=== PATIENT | female | born 1935 | race African-American/Black ===

== ENCOUNTER 2019-01-01 12:44 | Inpatient (IN) | payer MEDICARE ==
[2019-01-01 13:10] VITALS: BMI 22.9
--- NOTE | 2019-01-01 14:16 | PDOC.FPRHP ---
- History of Present Illness History of Present Illness: Patient is an 83F with PMHx of HTN, metastatic colon cancer to the liver, and CHF admitted with a CHF exacerbation. Patient reports that she has had increased work of breathing and a cough for 1 year, though it has increased over the last week. She reports that she went to the hospital today because she started coughing and it was difficult for her to stop. The cough is productive of clear/yellow sputum which is blood tinged at time. She sleeps on 2-3 pillows at night. She reports that she has been to the ED 3-4 times throughout the past year for the same symptoms. She reports of SOB and cough at this time, denies cp. ED Course: 40mg IV lasix, albuterol, duonebs - Allergies/Adverse Reactions Allergies Allergy/AdvReac Type Severity Reaction Status Date / Time aspirin Allergy Verified 01/01/19 13:13 - Home Medications Medication Instructions Recorded Confirmed Type Albuterol Sulfate [Proair 90 mcg IH Q4HR PRN 01/01/19 01/01/19 History Respiclick] Budesonide-Formoterol [Symbicort 160 mcg PO BID PRN 01/01/19 01/01/19 History 160-4.5] Losartan/Hydrochlorothiazide 1 tab PO BID 01/01/19 01/01/19 History [Losartan-Hctz 50-12.5 mg Tab] Montelukast Sodium [Singulair] 10 mg PO DAILY 01/01/19 01/01/19 History - History PMHx: HTN, COPD, metastatic colon cancer to liver PSHx: L cataract, colon resection, liver lobectomy, nephrectomy, hysterectomy, appendectomy R knee sx FHx: sister- CHF, mom-required pacemaker Social: second-hand smoke >30 years, non-smoker, no etoh use, no drug use - Review of Systems General: denies: fever/chills, night sweats Eyes: denies: eye pain, vision changes ENT: denies: nasal congestion, rhinorrhea Respiratory: reports: cough (productive of clear sputum occasionally tinged with blood), shortness of breath Cardiovascular: denies: chest pain, palpitation Gastrointestinal: denies: nausea, vomiting, diarrhea Genitourinary: denies: incontinence, dysuria Skin: denies: rashes, lesions Musculoskeletal: denies: tenderness, stiffness Neurological: denies: syncope, seizure - Vital signs BP: [133/84] HR: [109] RR: [21] Tmax: [98.4] Pox: [95]% on [3L] Wt: [76.71] - Physical Exam Constitutional: NAD, awake, alert and oriented HEENT: grossly normal hearing, MMM Neck: supple, FROM Chest: no-tender to palpation, no lesions Heart: RRR, normal S1/S2 Lungs: other (wheezing throughout all lung noel, upper respiratory noise) Abdomen: soft, non-tender, bowel sounds present Musculoskeletal: normal structure, normal tone Neurological: CN II-XII intact, normal sensation Skin: no rash/lesions, good turgor Heme/Lymphatic: no unusual bruising or bleeding, no purpura Psychiatric: normal mood and affect, good judgment and insight FMR H&P: Results - Labs Result Diagrams: 01/02/19 04:24 01/02/19 04:24 - Radiology Interpretation Chest x-ray Status: report reviewed by me (fluid overload) FMR H&P: A/P - Problem List (1) New onset of congestive heart failure Current Visit: Yes Status: Acute Code(s): I50.9 - HEART FAILURE, UNSPECIFIED (2) HTN (hypertension) Current Visit: Yes Status: Chronic Code(s): I10 - ESSENTIAL (PRIMARY) HYPERTENSION (3) Hx of malignant neoplasm of colon Current Visit: Yes Status: Chronic Code(s): Z85.038 - PERSONAL HISTORY OF MALIGNANT NEOPLASM OF LARGE INTESTINE (4) Chronic bronchitis Current Visit: Yes Status: Chronic Code(s): J42 - UNSPECIFIED CHRONIC BRONCHITIS - Plan Patient is an 83F with PMHx of HTN, chronic bronchitis, metastatic colon cancer to the liver that is admitted for new-onset CHF #New-onset CHF -patient has chronic bronchitis, but her cough and sob have worsened -sleeps on 2-3 pillows at night -denies chest pain -per Dr. Elmore has no hx of CHF -trop neg, will trend -CXR suggests fluid overload -echo -cardiology consult -BNP 24.8 -daily weights -O2 with oxygen weaning as tolerated -will see how the lasix she received in the ED improves her symptoms, will consider adding more in the am #Chronic Bronchitis -saw Dr. Leija a few months ago, he added singulair at that time per patient -will continue patient's home meds -oxygen support with weaning as tolerated #HTN -continue home meds #Metastatic colon cancer to the liver -had liver lobectomy and colon resection -monitored by pcp Diet: HH Code: Full; patient has out of hospital DNR but would like to be full code while in the hospital Dispo: inpatient for new-onset CHF exacerbation FMR H&P: Upper Level - Plan Date/Time: 01/01/19 1413 I, Pavan Peñaloza DO, have evaluated this patient and agree with findings/plan as outlined by marketing operations intern resident. Pertinent changes/additions are listed here. This is a 83 yo female with a pmh of NTH, chronic bronchitis, history of metastatic cancer who presents from an outside ER. She reports SOB for the last year. Normal, these symptoms are controlled with her proair and symbicort. She reports, however, that this morning her cough was acutely worse. Her inhalers did not improve her symptoms. She reports creamy sputum and occasionally blood tinged. She denies chest pain at this time. Denies nausea, vomiting, headache, dizziness, or weakness. Objective General: NAD, AAOx3 Respiratory: Diffuse coarse lung sounds with crackles a the bases Cardiac: RRR, no murmur Abdomen: Soft, non-tender Please see marketing operations intern note for further information A/P New onset CHF -Normal BNP but xray consistent with fluid overload -Pending Echo in AM -s/p 40mg of lasix at outside ER, will wait and see hour she responds -Dr. Leija is her teacher citizenship -Trending troponin -Cardiology consulted, will appreciate their recommendations Chronic Bronchitis -Continue home proair and symbicort HTN -Continue home meds Hx of metastatic breast cancer Code: Full Prophylaxis: SCDs Family: Daughter at bedside Diet: HH Fluids: SL Disposition: DC in 2-3 days PCP: Dr. Elmore Addendum - Attending - Attending Attestation Date/Time: 01/02/191935 I personally evaluated the patient and discussed the management with Dr. Lin I agree with the History, Examination, Assessment and Plan documented above with any addition or exceptions noted below - 83 yo female with h/o COPD, HTN, and h/0 colon and renal cancer presented with cough productive of yellow sputum and SOB. Patient reports recurrent episodes of this over the last year. Today she had episodes of coughing and was unable to catch her breath. Denies any fever or chills. Has been taking her home meds as prescribed including her inhalers. Denies any tobacc use but has h/o second hand smoke exposure for many years. PMH/PSH/Meds/SH reviewed and agree with resident's documentation. Afebrile VSS> Exam repeated by me and agree with resident's findings. Labs: WBC =6.6, CMP-normal. CXR- interstitial opacification. A/P: 1) Dyspnea- most likely secondary to COPD exacerbatio- will start on scheduled duonebs and sterids. Wean O2 as tolerated. CHF less likely as EF is normal and BNP is normal. 2) HTN - continue home medications.
[2019-01-01 15:07] LABS: Troponin I Less than 0.010 ng/mL (< 0.028)
[2019-01-01 17:28] LABS: Troponin I Less than 0.010 ng/mL (< 0.028)
[2019-01-01] MEDS ORDERED: PROVENTIL INHALER 6.7 G (200 INHALATIONS) INH SCH (18:30)
[2019-01-01] MEDS: Mometasone/Formoterol 120 PUFF INHALER INH SCH (18:55)
[2019-01-01] MEDS ORDERED: predniSONE 50 MG TAB PO SCH (19:30)
[2019-01-01 20:56] LABS: Troponin I Less than 0.010 ng/mL (< 0.028)
--- NOTE | 2019-01-01 21:04 | CON ---
DATE OF CONSULTATION: 01/01/2019 INDICATION FOR CONSULTATION: An 83-year-old female with possible new onset congestive heart failure. HISTORY OF PRESENT ILLNESS: This is an 83-year-old female who has been having problems with coughing, wheezing, and respiratory problems for over a year. Has had exacerbations throughout this time. She has been seen by Dr. Leija. She has been having a chronic cough and finally came to the hospital. Due to the coughing, she had increasing shortness of breath. She has a history of secondhand smoke, but did not smoke herself. She denies any history of asthma in the past. She has not had any significant lower extremity edema, but she says that she stands all day or sits for long periods of time, she may get some edema, otherwise has no previous history of congestive heart failure. Her echocardiogram was performed today which shows ejection fraction of 60% to 65% with mild aortic valve sclerosis, mild mitral tricuspid valve regurgitation, trace aortic valve regurgitation, evidence of diastolic dysfunction with a dilated left atrium. She denied any chest pain. Has had no previous cardiac history of ischemia. PAST MEDICAL HISTORY: Significant for hypertension, colon cancer with colon resection, partial liver resection. She has had chemotherapy. She has a history of asthma, COPD. She has had a left nephrectomy. She has had a hysterectomy, cataract surgery. She has had left knee surgery. Her nephrectomy was in 2017. FAMILY HISTORY: Noncontributory except for the smoking abuse. MEDICATIONS: Include, 1. Losartan/hydrochlorothiazide. 2. Symbicort. 3. Singulair. 4. ProAir. 5. DuoNeb. In the emergency room, she was given furosemide, albuterol, and more DuoNeb. REVIEW OF SYSTEMS: A 12-point review of systems is unremarkable except for what was noted in the history of present illness. PHYSICAL EXAMINATION: GENERAL: Reveals a well-developed, well-nourished female, who continues to cough throughout the examination. VITAL SIGNS: Blood pressure is 137/73, heart rate is in the low 100s, respiratory rate 16 to 20. She is afebrile. HEENT: Show the head to be normocephalic and atraumatic. I cannot hear any bruits due to lateral coughing and upper respiratory noise. CHEST: Her chest has rhonchi and wheezing throughout. CARDIOVASCULAR: Appears to be regular rate and rhythm. Difficult to auscultate but somewhat tachycardic. She has not had any gross murmurs. ABDOMEN: Soft and nontender. She has a well-healed surgical incision. EXTREMITIES: Show no clubbing, cyanosis, or edema. Pedal pulses are present. NEUROLOGIC: She appears to be fully intact. DIAGNOSTIC DATA: Chest x-ray does show some increasing densities at both sides bilaterally in her chest, especially in the upper lobes and mid upper lobes. Her EKG shows a sinus rhythm with occasional PVCs and some nonspecific changes, but nothing to indicate any acute changes for ischemia. LABORATORY DATA: Show a potassium of 3.7, BUN of 33, and creatinine of 1.86. Blood sugar was 101, her hemoglobin was 11.8, WBC of 6.6. Her BNP was 24, O2 saturation 86% on room air, appears to be over 90% now since she has been started on oxygen. IMPRESSION: 1. Chronic obstructive pulmonary disease exacerbation in this elderly lady with significant but most likely chronic bronchitis. She has been seen followed by Dr. Leija in the past and most likely would benefit from a repeat round of steroids. 2. Possible pneumonia. This will be dealt with by the primary care service. 3. Chronic kidney disease. Her creatinine is 1.86. She has one kidney after undergoing a left nephrectomy and this appears to be stable. She has a history of hypertension, which is also under good control at this time. 4. Severe chronic obstructive pulmonary disease which will be most likely be dealt with best by the director decision support. 5. No clear indication at this time that the patient has any congestive heart failure. Her BNP is 24. She has no significant edema. Her echocardiogram shows ejection fraction of 60% to 65% with some mild diastolic dysfunction. We would be more than happy to continue to follow this patient for another one or two days and then most likely we will sign off unless any new cardiac events arise. Job ID: [id number] [facility]
[2019-01-02 04:37] LABS: #Lymphocytes 0.5 thou/uL (1.20-3.40); #Monocytes 0.1 thou/uL (0.11-0.59); %Eosinophils 0.4 % (0.0-10.0); %Lymphocytes 8.7 % (21.0-51.0); %Monocytes 1.8 % (0.0-10.0); %Neutrophils 89.1 % (42.0-75.0); Hemoglobin 11.9 g/dL (12.0-16.0); Mean Corpuscular HGB CONC 32.8 g/dL (32.0-36.0); Mean Corpuscular Hemoglobin 30.4 pg (27.0-31.0); Mean Corpuscular Volume 92.9 fL (78.0-98.0); Mean Platelet Volume 8.2 fL (7.4-10.4); Platelet Count 189 thou/uL (130-400); RBC Distribution Width 12.3 % (11.5-14.5); White Blood Cell (WBC) Count 5.6 thou/uL (4.8-10.8)
[2019-01-02 04:57] LABS: Anion Gap 15 mmol/L (10-20); BUN (Urea Nitrogen) 30 mg/dL (9.8-20.1); Calc. Creatinine Clearance 32 mL/min (70-130); Carbon Dioxide 29 mmol/L (23-31); Chloride 100 mmol/L (98-107); Estimated GFR-MDRD 35; Glucose 163 mg/dL (83-110); Potassium 3.8 mmol/L (3.5-5.1); Sodium 140 mmol/L (136-145)
--- NOTE | 2019-01-02 05:42 | PDOC.FM ---
- Subjective Subjective: Mrs. Miller was resting comfortably with her daughter at bedside at the time of evaluation. She denied any new complaints since admission yesterday, such as headaches,N/V, chest pain, or worsening shortness of breath. She was on 2L O2 via Nasal Canula, and stated that her O2 had been weaned progressively since her arrival. - Objective Vital Signs & Weight: Vital Signs (12 hours) Temp Pulse Resp BP Pulse Ox 01/02/19 04:00 97.5 F L 90 18 120/67 95 01/02/19 02:12 95 01/02/19 01:51 81 16 95 01/02/19 00:25 98.1 F 95 21 H 127/72 96 01/01/19 22:28 78 16 95 01/01/19 21:14 99 F 99 20 132/76 97 01/01/19 18:55 66 16 95 Weight Weight 76.714 kg I&O: 12/31/18 01/01/19 01/02/19 06:59 06:59 06:59 Intake Total 240 Balance 240 Result Diagrams: 01/02/19 04:24 01/02/19 04:24 Phys Exam - Physical Examination Constitutional: NAD HEENT: PERRLA, moist MMs, sclera anicteric, oral pharynx no lesions Cataracts in right eye Neck: no nodes, supple, full ROM Mild wheezing w/ diffuse rhonchi. No cough Cardiovascular: RRR, no significant murmur, no rub Gastrointestinal: soft, non-tender, no distention Musculoskeletal: no edema, pulses present Neurological: non-focal, moves all 4 limbs Psychiatric: normal affect, A&O x 3 Skin: no rash Dx/Plan - Plan Plan: 1. COPD Exacerbation -Chronic bronchitis w/ worsening cough and SOB, PND -No previous Hx of CHF, per PCP ([facility]) -Trops: Neg x3 -BNP: 24.8 -CXR: Fluid Overload -Echo: EF 60-65%, mild Mitral/Tricuspid Regurgitation, mild Atrial Dilation -Cardiology Consult: [facility] currently following, CHF unlikely -Daily Weights, Strict I&Os -O2 with weaning as tolerated -Consider increasing Lasix regimen for continued diuresis -Consider incentive spirometry and PFTS -Will likely require antibiotics onDC -Pulmonology Consult: Pending 2. Chronic Bronchitis -Saw Dr. Leija a few months ago, recently added Singulair to home medication regimen -Continue home medication regimen -O2 with weaning as tolerated - currently on 2L o2 via Nasal Canula -Patient denies O2 use at home 3. HTN -BP: 120/67 on 01/02 -Continue home medication regimen 4. Metastatic Colon Cancer -Metastasis to the Liver - s/p hepatic resection and colonic resection -Currently being monitored by PCP ([place]) Code: Full (w/ OOH DNR) Diet: Heart Healthy Activity: Ad criselda DVT PPx: Dispo: Patient is currently stable on Telemetry Unit. New-onset CHF vs. COPD exacerbation - unclear at this point. Continue fluid diuresis and O2 support. Consider incentive spirometry and PFTs, coordinate closely w/ Pulmonology. Expected LOS < 48H. Addendum - Attending - Attending Attestation Date/Time: 01/02/192116 I personally evaluated the patient and discussed the management with Dr. Walter I agree with the History, Examination, Assessment and Plan documented above with any addition or exceptions noted below- Patient feeling a lottle better. Still having some SOB. Afebrile VSS. A/P: 1) COPD exacerbation- continue nebs, steroids. Consult pulmonary today for additional recommendations. 2) HTN- continue home medications.
[2019-01-02] MEDS: Mometasone/Formoterol 120 PUFF INHALER INH SCH ×2 (07:35→19:15)
[2019-01-02] MEDS: Montelukast Sodium 10 mg Tablet PO SCH (08:48)
--- NOTE | 2019-01-02 09:40 | PDOC.CPN ---
- Subjective Date: 01/02/19 Time: 09:44 Interval history: The pt seen and examined. No overnight events. No cardiac complaints. - Objective Allergies/Adverse Reactions: Allergies Allergy/AdvReac Type Severity Reaction Status Date / Time aspirin Allergy Verified 01/01/19 13:13 Visit Medications: Current Medications Albuterol/Ipratropium (Duoneb) 3 ml NEB [id number] [facility] Last Admin: 01/02/19 07:34 Dose: 3 ml HCTZ/Losartan Potassium (Hyzaar 50/12.5) 1 tab PO BID [facility] Last Admin: 01/02/19 08:48 Dose: 1 tab Influenza Virus Vaccine (Fluzone High-Dose Syr) 180 mcg IM .ONCE ONE Stop: 01/02/19 13:46 Mometasone Furoate/Formoterol Fumar (Dulera 200 Mcg/5 Mcg Inhaler) 2 puff INH BID-RT [facility] Last Admin: 01/02/19 07:35 Dose: 2 puff Montelukast Sodium (Singulair) 10 mg PO DAILY [facility] Last Admin: 01/02/19 08:48 Dose: 10 mg Pneumococcal 13-Valent Conj Vacc (Prevnar) 0.5 ml IM .ONCE ONE Stop: 01/02/19 13:46 Prednisone (Prednisone) 50 mg PO Q24HR [facility] Stop: 01/06/19 20:01 Vital Signs & Weight: Vital Signs Temp Pulse Resp BP Pulse Ox 01/02/19 07:35 99 01/02/19 07:34 91 18 99 01/02/19 04:00 97.5 F L 90 18 120/67 95 01/02/19 02:12 95 01/02/19 01:51 81 16 95 01/02/19 00:25 98.1 F 95 21 H 127/72 96 01/01/19 22:28 78 16 95 Weight 169 lb 2 oz - Physical Exam General: alert & oriented x3 Neck: supple neck Cardiac: regular rate and rhythm, S1/S2 Lungs: decreased breath sounds, wheezes Neuro: cranial nerve 2-12 intact Extremities: 2+ LE edema Skin: clear - Labs Result Diagrams: 01/02/19 04:24 01/02/19 04:24 Troponin/CKMB Troponin I Less than 0.010 ng/mL (< 0.028) 01/01/19 19:21 - Telemetry Sinus rhythms and dysrhythmias: sinus rhythm - Assessment/Plan Assessment/Plan: 1. COPD Exacerbation - 2. Possible New-onset Diastolic HF vs COPD exac? - 3. HTN - 4. CKD - stable 5. Metastatic colon cancer (metastasis to Liver with partial liver resection with chemo) 6. hx of Lt nephrectomy MAR reviewed * Echo on 01/01/2019 with EF 60-65%, grade I dd, dilated LA, mild MR and TR, trace AR, Pt. seen and eval. by me. I agree with the A/P by the UNEMPLOYMENT INSPECTOR. This appears to be more of a pulmonary issue than cardiac. She dover sgrade I diastolic dysfunction, nl EF and no significant valvular disease. Chest: diffuse wheezing. RRR, no edema. Cardiac status is stable at this time. melly
--- NOTE | 2019-01-02 11:20 | CON ---
DATE OF CONSULTATION: HISTORY OF PRESENT ILLNESS: Moraima Miller is an 83-year-old female, who was seen in the office recently, referred by Dr. Elmore. An 83-year-old female, lifelong nonsmoker, who is referred for several days duration of recurrent bronchitis and shortness of breath. She saw a physician and heading repairer at [facility] and PFTs were done at that time, unclear what she was told. Because of ongoing bronchitis and wheezing, she received a course of antibiotics and prednisone to which she got somewhat better, then was seen in the office. Office pulmonary function test shows her FEV1 was 72% predicted and FVC was 1.87 of 63% predicted, consistent with a mixed obstructive restrictive pulmonary impairment. X-ray today shows a slightly elevated right hemidiaphragm, but no other mass was seen. She was readmitted to the hospital at this time with symptoms of coughing and wheezing and shortness of breath. Cardiology has been consulted. PAST MEDICAL HISTORY: Chronic bronchitis, nonsmoker, and hypertension. PAST SURGICAL HISTORY: Left nephrectomy, left knee surgery, and left cataract surgery. CHRONIC MEDICATIONS: 1. Losartan 50. 2. Symbicort 160/4.5 two puffs twice a day. 3. Rescue inhaler. 4. Nebulizer p.r.n. 5. Singulair 10. SOCIAL AND FAMILY HISTORY: Otherwise, unremarkable. Never smoke. No alcohol. REVIEW OF SYSTEMS: Ten-point negative. PHYSICAL EXAMINATION: GENERAL: On examination, she is in no acute distress. VITAL SIGNS: Blood pressure 130/70, pulse is 72, respirations 16, and saturations 96%. CHEST: Minimal wheezing. CARDIAC: Normal S1 and S2. No gallops. ABDOMEN: No masses. LABORATORY DATA: Unremarkable. ASSESSMENT: Bronchitis in a nonsmoker, probably reactive airway disease with deconditioning and possibly diastolic dysfunction. PLAN: I agree with present treatment. I am going to repeat a full PFT in the hospital. Continue aggressive PT, supportive care. We will follow while in the hospital. Consultation note, 70 minutes, 50% direct patient care. Job ID: [id number]
[2019-01-02] MEDS ORDERED: FLU VACC TS2019-20(65YR UP)/PF 180 MCG/0.5 ML SYRINGE IM ONE (13:45)
[2019-01-02] MEDS ORDERED: Prevnar 13-Val Conj/PF 0.5 ML SYRINGE IM ONE (13:45)
[2019-01-02] MEDS ORDERED: Azithromycin 250 MG TAB PO SCH (15:00)
[2019-01-02] MEDS: predniSONE 50 MG TAB PO SCH (21:04)
--- NOTE | 2019-01-03 06:23 | PDOC.FM ---
- Subjective Subjective: Mrs. Miller was resting comfortably with her daughter at bedside at the time of evaluation. She denied any acute overnight events, but continued to complain of a dry cough and SOB. She also stated that she was feeling constipated and would like some medicine to help her have a BM. - Objective Vital Signs & Weight: Vital Signs (12 hours) Temp Pulse Resp BP Pulse Ox 01/03/19 04:00 97.4 F L 97 20 113/60 94 L 01/03/19 03:32 92 18 95 01/02/19 21:29 94 18 95 01/02/19 21:00 98.3 F 20 121/71 93 L 01/02/19 19:15 81 18 97 Weight Admit Weight 76.714 kg Weight 76.714 kg I&O: 01/01/19 01/02/19 01/03/19 06:59 06:59 06:59 Intake Total 480 720 Output Total 600 Balance -120 720 Result Diagrams: 01/03/19 07:00 01/03/19 07:00 Phys Exam - Physical Examination Constitutional: NAD HEENT: moist MMs, sclera anicteric, oral pharynx no lesions Neck: supple, full ROM Respiratory: no rales, no rhonchi Diffuse wheezing with sporadic dry coughing Cardiovascular: RRR, no significant murmur, no rub Gastrointestinal: soft, non-tender, no distention, positive bowel sounds Musculoskeletal: no edema, pulses present +2 at Radial and Doralis Pedis Arteries Neurological: non-focal, moves all 4 limbs Psychiatric: normal affect Deviation from normal: Diffuse papules, likely chronic Dx/Plan - Plan Plan: 1. COPD Exacerbation -Chronic bronchitis w/ worsening cough and SOB, PND -No previous Hx of CHF, per PCP ([facility]) -Trops: Neg x3 -BNP: 24.8 -CXR: Fluid Overload -Echo: EF 60-65%, mild Mitral/Tricuspid Regurgitation, mild Atrial Dilation -Cardiology Consult: Currently following, CHF unlikely -Pulmonology Consult: Currently following, will plan for PFTs later today -Daily Weights, Strict I&Os -O2 with weaning as tolerated later this PM -Azithromycin 500 mg PO on 01/02 -Azithromycin 250 mg PO x4 starting on 01/03 2. Chronic Bronchitis -Saw Dr. Leija a few months ago, recently added Singulair to home medication regimen -Continue home medication regimen -O2 with weaning as tolerated - currently on 2L O2 via Nasal Canula -Patient denies O2 use at home 3. HTN -BP: 113/60 on 01/03 -Continue home medication regimen 4. Metastatic Colon Cancer -Metastasis to the Liver - s/p hepatic resection and colonic resection -Currently being monitored by PCP ([place]) Code: Full (w/ OOH DNR) Diet: Heart Healthy Activity: Ad criselda DVT PPx: SCDs Dispo: Patient is currently stable on Telemetry Unit for COPD exacerbation. Continue O2 support and medication regimen as per above. Plan for PFTs later today, per Pulmonology. Expected LOS < 48H. Addendum - Attending - Attending Attestation Date/Time: 01/03/19 6524 I personally evaluated the patient and discussed the management with Dr. Walter I agree with the History, Examination, Assessment and Plan documented above with any addition or exceptions noted below - Patient feeling a little better; did not sleep well due to persistent cough. Afebrile VSS. A/P: 1) COPD exacerbation- appreciate pulmonary assistance; continue steroids, nebs. Wean O2 as tolerated.
[2019-01-03] MEDS ORDERED: Polyethylene Glycol 3350 17 GM Packet PO SCH (06:45)
[2019-01-03 07:06] LABS: Hemoglobin 11.8 g/dL (12.0-16.0); Mean Corpuscular HGB CONC 32.2 g/dL (32.0-36.0); Mean Corpuscular Volume 93.1 fL (78.0-98.0); Mean Platelet Volume 8.2 fL (7.4-10.4); Platelet Count 200 thou/uL (130-400); RBC Distribution Width 12.3 % (11.5-14.5); Red Blood Cell (RBC) Count 3.94 mill/uL (4.20-5.40); White Blood Cell (WBC) Count 8.1 thou/uL (4.8-10.8)
[2019-01-03 07:22] LABS: ALT (SGPT) 14 U/L (8-55); AST (SGOT) 16 U/L (5-34); Alkaline Phosphatase 92 U/L (40-110); Anion Gap 17 mmol/L (10-20); BUN (Urea Nitrogen) 39 mg/dL (9.8-20.1); Bilirubin, Total 0.4 mg/dL (0.2-1.2); Calc. Creatinine Clearance 30 mL/min (70-130); Calcium 9.6 mg/dL (7.8-10.44); Carbon Dioxide 26 mmol/L (23-31); Chloride 98 mmol/L (98-107); Estimated GFR-MDRD 33; Globulin 2.5 g/dL (2.4-3.5); Glucose 179 mg/dL (83-110); Potassium 3.8 mmol/L (3.5-5.1); Protein, Total 6.5 g/dL (6.0-8.3); Sodium 137 mmol/L (136-145)
[2019-01-03] MEDS: Mometasone/Formoterol 120 PUFF INHALER INH SCH ×2 (08:00→20:17)
--- NOTE | 2019-01-03 09:14 | PDOC.CPN ---
- Subjective Date: 01/03/19 Time: 08:30 Interval history: The pt seen and examined. No overnight events. No cardiac complaints. - Objective Allergies/Adverse Reactions: Allergies Allergy/AdvReac Type Severity Reaction Status Date / Time aspirin Allergy Verified 01/01/19 13:13 Visit Medications: Current Medications Albuterol/Ipratropium (Duoneb) 3 ml NEB [id number] [facility] Last Admin: 01/03/19 08:00 Dose: Not Given Azithromycin (Zithromax) 250 mg PO 1500 [facility] Stop: 01/06/19 15:01 HCTZ/Losartan Potassium (Hyzaar 50/12.5) 1 tab PO BID [facility] Last Admin: 01/02/19 21:04 Dose: 1 tab Mometasone Furoate/Formoterol Fumar (Dulera 200 Mcg/5 Mcg Inhaler) 2 puff INH BID-RT [facility] Last Admin: 01/03/19 08:00 Dose: Not Given Montelukast Sodium (Singulair) 10 mg PO DAILY [facility] Last Admin: 01/02/19 08:48 Dose: 10 mg Polyethylene Glycol (Miralax) 17 gm PO DAILYPRN [facility] Prednisone (Prednisone) 50 mg PO Q24HR [facility] Stop: 01/06/19 20:01 Last Admin: 01/02/19 21:04 Dose: 50 mg Vital Signs & Weight: Vital Signs Temp Pulse Resp BP Pulse Ox 01/03/19 07:24 97.4 F L 95 16 122/64 94 L 01/03/19 04:00 97.4 F L 97 20 113/60 94 L 01/03/19 03:32 92 18 95 01/02/19 21:29 94 18 95 Admit Weight 169 lb 2 oz Weight 169 lb 2 oz - Physical Exam General: alert & oriented x3 Cardiac: regular rate and rhythm, S1/S2 Lungs: decreased breath sounds, wheezes, oxygen Neuro: cranial nerve 2-12 intact Abdomen: unremarkable Skin: clear Musculoskeletal: normal range of motion - Labs Result Diagrams: 01/03/19 07:00 01/03/19 07:00 Troponin/CKMB Troponin I Less than 0.010 ng/mL (< 0.028) 01/01/19 19:21 - Telemetry Sinus rhythms and dysrhythmias: sinus rhythm - Assessment/Plan Assessment/Plan: 1. COPD Exacerbation - managed by media librarian 2. Possible New-onset Diastolic HF vs COPD exac? - stable;This appears to be more of a pulmonary issue than cardiac. 3. HTN - stabe 4. CKD - stable 5. Metastatic colon cancer (metastasis to Liver with partial liver resection with chemo) 6. hx of Lt nephrectomy MAR reviewed * Echo on 01/01/2019 with EF 60-65%, grade I dd, dilated LA, mild MR and TR, trace AR, Pt. seen and eval. by me. I agree with the A/P by the FOAM CUTTING SUPERVISOR. Chest: wheezes. RRR. No edema. Cardiac status is stable. I will sign off. thank you for the consult.
[2019-01-03] MEDS: Montelukast Sodium 10 mg Tablet PO SCH (09:27)
--- NOTE | 2019-01-03 10:27 | PRG ---
DATE OF SERVICE: 01/03/2019 SUBJECTIVE: This morning, she is better. She says she coughs all night. OBJECTIVE: VITAL SIGNS: Saturations are 94% on 2 L, temperature 97, pulse 95, respirations 16, and blood pressure 122/64. CHEST: Decreased breath sounds. Has occasional wheeze and rhonchi. CARDIAC: Normal S1, S2. No gallops. ABDOMEN: No masses. IMPRESSION: Chronic obstructive pulmonary disease, asthma, azotemia, severe deconditioning. PFTs ordered today. I agree with prednisone, neb treatments, supportive care. Hopefully, disposition to home in the next 24 to 48 hours if she remains stable. Job ID: [id number]
[2019-01-03] MEDS: Azithromycin 250 MG TAB PO SCH (14:34)
[2019-01-03] MEDS: predniSONE 50 MG TAB PO SCH (20:33)
[2019-01-04] MEDS: Benzonatate 100 MG CAP PO PRN ×2 (05:52→14:46)
--- NOTE | 2019-01-04 06:26 | PDOC.FM ---
- Subjective Subjective: Mrs. Miller was resting comfortably with her daughter at bedside during the evaluation. Her only complaints during the night were continued episodes of coughing. She felt that she was breathing well otherwise, and did not have any feelings of syncope or respiratory distress. Additionally, she denied any headaches, N/D, chest pain or ABD pain. A lengthy discussion was had with both parties about the patient's Code Status. Both parties agreed that Mr. Miller would remain Full Code for the time being, with her daughter continuing to serve as her MPOA. - Objective Vital Signs & Weight: Vital Signs (12 hours) Temp Pulse Resp BP Pulse Ox 01/04/19 02:26 90 16 92 L 01/03/19 22:33 87 18 91 L 01/03/19 20:00 98.2 F 89 18 116/67 95 Weight Admit Weight 76.714 kg Weight 76.714 kg I&O: 01/02/19 01/03/19 01/04/19 06:59 06:59 06:59 Intake Total 480 960 740 Output Total 600 600 Balance -120 360 740 Result Diagrams: 01/03/19 07:00 01/03/19 07:00 Phys Exam - Physical Examination Constitutional: NAD HEENT: PERRLA, moist MMs, sclera anicteric, oral pharynx no lesions Neck: supple, full ROM Respiratory: no rales, no rhonchi Diffuse wheezes heard bilaterally Cardiovascular: RRR, no significant murmur, no rub Gastrointestinal: soft, non-tender, no distention, positive bowel sounds Musculoskeletal: pulses present +2 at the Radial and Dorsalis Pedis Arteries, bilaterally Neurological: non-focal, moves all 4 limbs Psychiatric: normal affect Dx/Plan - Plan Plan: 1. COPD Exacerbation -Chronic bronchitis w/ worsening cough and SOB, PND -No previous Hx of CHF, per PCP Juani) -Trops: Neg x3 -BNP: 24.8 -CXR: Fluid Overload -Echo: EF 60-65%, mild Mitral/Tricuspid Regurgitation, mild Atrial Dilation -Cardiology Consult: Currently following, CHF unlikely -Pulmonology Consult: Currently following, awaiting results of PFTs -Duonebs, Dulera, Montelukast, Prednisone w/ Tessalon Pearls -Daily Weights, Strict I&Os -O2 with weaning as tolerated later this PM -Azithromycin 500 mg PO on 01/02 -Azithromycin 250 mg PO x4 starting on 01/03 -Consider additional dose of Lasix 2. Chronic Bronchitis -Saw Dr. Leija a few months ago, recently added Singulair to home medication regimen -Continue home medication regimen -O2 with weaning as tolerated - currently on 2L O2 via Nasal Canula -Patient denies O2 use at home 3. HTN -BP: 116/67 on 01/04 -Continue home medication regimen 4. Metastatic Colon Cancer -Metastasis to the Liver - s/p hepatic resection and colonic resection -Currently being monitored by PCP ([place]) Code: Full (w/ OOH DNR) Diet: Heart Healthy Activity: Ad criselda DVT PPx: SCDs Dispo: Patient is currently stable on Telemetry Unit for COPD exacerbation. Continue O2 support and medication regimen as per above. Coordinate closely with Pulmonology as needed. Plan for DC home soon w/ Home Health. Expected LOS < 48H. Addendum - Attending - Attending Attestation Date/Time: 01/04/19 1100 I personally evaluated the patient and discussed the management with Dr. Walter. I agree with the History, Examination, Assessment and Plan documented above with any addition or exceptions noted below. Currently no s/s of volume overload. Would continue tx for presumed obstructive lung disease exacerbation.
[2019-01-04] MEDS: Mometasone/Formoterol 120 PUFF INHALER INH SCH ×2 (08:04→19:08)
--- NOTE | 2019-01-04 09:25 | PRG ---
DATE OF SERVICE: 01/04/2019 SUBJECTIVE: Moraima Miller is still coughing, PFT yesterday. OBJECTIVE: VITAL SIGNS: Temperature 98, pulse 92, respiratory rate 16, saturations 95% on 2 L, blood pressure 120/80. CHEST: No wheezing or crackles. CARDIAC: Normal S1 and S2. No gallops. ABDOMEN: No masses. ASSESSMENT: Chronic obstructive pulmonary disease, asthmatic bronchitis, cough, hypertension. PLAN: 1. Even though losartan is not known to cause the cough, I am going to switch it over to Norvasc because she is still coughing after several months. 2. Continue supportive care. PT. 3. Taper steroids over 2 weeks. We will discuss and follow. Job ID: [id number]
[2019-01-04] MEDS: Amlodipine 5 MG TAB PO SCH (09:29)
[2019-01-04] MEDS: Montelukast Sodium 10 mg Tablet PO SCH (09:30)
[2019-01-04] MEDS: Enoxaparin Sodium 30 MG/0.3 ML SYRINGE SC SCH (09:31)
[2019-01-04] MEDS: Azithromycin 250 MG TAB PO SCH (14:46)
[2019-01-04] MEDS: predniSONE 50 MG TAB PO SCH (20:00)
--- NOTE | 2019-01-05 05:23 | PDOC.FM ---
- Subjective Subjective: Pt taking a duoneb upon entering the room. Pt states she had a couple of episodes of coughing overnight relieved with duonebs. Pt c/o SOB and pain in her chest with coughing. Denies n/v. - Objective MAR Reviewed: Yes Vital Signs & Weight: Vital Signs (12 hours) Temp Pulse Resp BP Pulse Ox 01/05/19 02:49 85 14 92 L 01/04/19 23:10 91 16 94 L 01/04/19 20:10 99 01/04/19 19:13 98.1 F 77 18 129/81 99 01/04/19 19:07 97 18 94 L Weight Admit Weight 76.714 kg Weight 76.714 kg I&O: 01/03/19 01/04/19 01/05/19 06:59 06:59 06:59 Intake Total 960 740 500 Output Total 600 Balance 360 740 500 Result Diagrams: 01/03/19 07:00 01/03/19 07:00 Phys Exam - Physical Examination Constitutional: NAD HEENT: moist MMs, sclera anicteric Neck: no nodes, supple Respiratory: wheezing present decreased breath sounds. Cardiovascular: RRR, no significant murmur, no rub Gastrointestinal: soft, non-tender, no distention, positive bowel sounds Musculoskeletal: no edema, pulses present Neurological: non-focal, moves all 4 limbs Psychiatric: normal affect, A&O x 3 Skin: no rash, normal turgor, cap refill <2 seconds Dx/Plan (1) COPD with exacerbation Code(s): J44.1 - CHRONIC OBSTRUCTIVE PULMONARY DISEASE W (ACUTE) EXACERBATION Status: Acute (2) Chronic bronchitis Code(s): J42 - UNSPECIFIED CHRONIC BRONCHITIS Status: Chronic (3) HTN (hypertension) Code(s): I10 - ESSENTIAL (PRIMARY) HYPERTENSION Status: Chronic - Plan Plan: 1. COPD Exacerbation -Chronic bronchitis w/ worsening cough and SOB, PND -No previous Hx of CHF, per PCP Juani) -Trops: Neg x3 -BNP: 24.8 -CXR: Fluid Overload -Echo: EF 60-65%, mild Mitral/Tricuspid Regurgitation, mild Atrial Dilation -Cardiology Consult: Currently following, CHF unlikely -Pulmonology Consult: Currently following. recommening d/c losartan, starting norvasc. X2 week steroid eddy. -Duonebs, Dulera, Montelukast, Prednisone w/ Tessalon Pearls -Daily Weights, Strict I&Os -O2 with weaning as tolerated later this PM -Azithromycin 500 mg PO on 01/02 -Azithromycin 250 mg PO x4 starting on 01/03 -Consider additional dose of Lasix 2. Chronic Bronchitis -Saw Dr. Leija a few months ago, recently added Singulair to home medication regimen -Continue home medication regimen -O2 with weaning as tolerated - currently on 2L O2 via Nasal Canula -Patient denies O2 use at home 3. HTN -BP: 116/67 on 01/04 -d/c losartan, started norvasc. 4. Metastatic Colon Cancer -Metastasis to the Liver - s/p hepatic resection and colonic resection -Currently being monitored by PCP ([place]) Code: Full (w/ OOH DNR) Diet: Heart Healthy Activity: Ad criselda DVT PPx: SCDs Dispo: Patient is currently stable on medical Unit for COPD exacerbation. Continue O2 support and medication regimen as per above. Plan for DC home soon w/ Home Health. Expected LOS < 48H. Addendum - Attending - Attending Attestation Date/Time: 01/05/19 1810 I personally evaluated the patient and discussed the management with Dr. Sharp. I agree with the History, Examination, Assessment and Plan documented above with any addition or exceptions noted below. Patient is having increased coughing episodes. Will continue nebs, abx and steroids.
[2019-01-05] MEDS: Mometasone/Formoterol 120 PUFF INHALER INH SCH ×2 (06:45→19:21)
[2019-01-05] MEDS: Amlodipine 5 MG TAB PO SCH (07:54)
[2019-01-05] MEDS: Montelukast Sodium 10 mg Tablet PO SCH (07:54)
[2019-01-05] MEDS: Enoxaparin Sodium 30 MG/0.3 ML SYRINGE SC SCH (07:54)
[2019-01-05] MEDS: Azithromycin 250 MG TAB PO SCH (14:31)
--- NOTE | 2019-01-05 18:26 | PRG ---
DATE OF SERVICE: SERVICE: Pulmonary Service. INTERVAL HISTORY: The patient is breathing very comfortably. She has no complaints of discomfort. She has very little shortness of breath. She has been able to walk around without significant difficulties. Otherwise, there has been no interval change to her condition. PHYSICAL EXAMINATION: VITAL SIGNS: Afebrile, pulse 85, blood pressure 134/75, respirations 16, saturation 95% on 2 L nasal cannula. GENERAL: The patient is awake and alert, in no apparent distress. LUNGS: Decent air entry. There is no prolonged expiratory phase. Dependent crackles are present on the left. Nothing on the right however. HEART: Normal rate and regular. ABDOMEN: Soft, nontender, and nondistended. Bowel sounds are positive. MUSCULOSKELETAL: No cyanosis or clubbing. There is no pitting in the bilateral lower extremities. NEUROLOGIC: Grossly nonfocal. LABORATORY DATA: Creatinine 1.78. ASSESSMENT: 1. Acute hypoxic respiratory failure. 2. Chronic obstructive pulmonary disease with acute exacerbation, resolved. 3. Acute on chronic diastolic heart failure. 4. Colon cancer, metastatic. 5. Chronic kidney disease. DISCUSSION AND PLAN: The patient is doing fine from respiratory standpoint. At this point, she is stable for transition out of the hospital from a purely respiratory perspective. Her need for oxygen can be reassessed in the outpatient setting. Antibiotics and steroids directed at lung pathology can be limited to a 5-day course. If she remains in-house, Pulmonary will follow intermittently. Dr. Leija will be back over on Monday, but my suspicion is she should be discharged in the morning. Job ID: [id number] MTDD
[2019-01-05] MEDS: predniSONE 50 MG TAB PO SCH (19:38)
[2019-01-05] MEDS: Benzonatate 100 MG CAP PO PRN (19:39)
--- NOTE | 2019-01-06 06:00 | PDOC.FM ---
- Subjective Subjective: Pt states she had a much better night and denies having SOB or coughing spells overnight. She denies CP. Pt states she feels [facility] more comfortable returning home today. She has a nebulizer at home. Pt states Home Health will set up her new home O2 requirement upon discharge. - Objective MAR Reviewed: Yes Vital Signs & Weight: Vital Signs (12 hours) Temp Pulse Resp BP Pulse Ox 01/06/19 04:00 97.8 F 92 20 137/84 95 01/06/19 02:15 89 14 95 01/06/19 01:07 98.1 F 95 20 128/77 95 01/05/19 22:34 95 16 94 L 01/05/19 20:00 98.0 F 96 20 132/77 96 01/05/19 19:20 100 16 95 Weight Admit Weight 76.714 kg Weight 76.714 kg I&O: 01/04/19 01/05/19 01/06/19 06:59 06:59 06:59 Intake Total 740 1000 1220 Balance 740 1000 1220 Result Diagrams: 01/03/19 07:00 01/03/19 07:00 Phys Exam - Physical Examination Constitutional: NAD HEENT: moist MMs, sclera anicteric Neck: no nodes, no JVD, supple, full ROM Respiratory: no wheezing, no rales, no rhonchi, clear to auscultation bilateral decreased breath sounds. Cardiovascular: RRR, no significant murmur, no rub Gastrointestinal: soft, non-tender, no distention, positive bowel sounds Musculoskeletal: no edema, pulses present Neurological: non-focal, normal sensation Psychiatric: normal affect, A&O x 3 Skin: no rash, normal turgor, cap refill <2 seconds Dx/Plan (1) COPD with exacerbation Code(s): J44.1 - CHRONIC OBSTRUCTIVE PULMONARY DISEASE W (ACUTE) EXACERBATION Status: Acute (2) Chronic bronchitis Code(s): J42 - UNSPECIFIED CHRONIC BRONCHITIS Status: Chronic (3) HTN (hypertension) Code(s): I10 - ESSENTIAL (PRIMARY) HYPERTENSION Status: Chronic - Plan Plan: 1. COPD Exacerbation -Chronic bronchitis w/ worsening cough and SOB, PND -No previous Hx of CHF, per PCP Juani) -Trops: Neg x3 -BNP: 24.8 -CXR: Fluid Overload -Echo: EF 60-65%, mild Mitral/Tricuspid Regurgitation, mild Atrial Dilation -Cardiology Consult: Currently following, CHF unlikely -Pulmonology Consult: Currently following. recommening d/c losartan, starting norvasc. X2 week steroid eddy. -Duonebs, Dulera, Montelukast, Prednisone w/ Tessalon Pearls -Daily Weights, Strict I&Os -Azithromycin 500 mg PO on 01/02 -Azithromycin 250 mg PO x4 starting on 01/03 - Will be discharged on home O2, as pt required O2 to keep O2 sats adequate. 2. Chronic Bronchitis -Saw Dr. Leija a few months ago, recently added Singulair to home medication regimen -Continue home medication regimen -O2 with weaning as tolerated - currently on 2L O2 via Nasal Canula -Patient denies O2 use at home 3. HTN -BP: 116/67 on 01/04 -d/c losartan, started norvasc. - 137/84 on 1110 AM. 4. Metastatic Colon Cancer -Metastasis to the Liver - s/p hepatic resection and colonic resection -Currently being monitored by PCP ([place]) Code: Full (w/ OOH DNR) Diet: Heart Healthy Activity: Ad criselda DVT PPx: SCDs Dispo: Patient is currently stable on medical Unit for COPD exacerbation. Continue O2 support and medication regimen as per above. Plan for DC home soon w/ Home Health and O2. Expected LOS < 48H. Addendum - Attending - Attending Attestation Date/Time: 01/06/19 8633 I personally evaluated the patient and discussed the management with Dr. Sharp. I agree with the History, Examination, Assessment and Plan documented above with any addition or exceptions noted below. Patient is feeling better, coughing improved. Stable for d/c. Will need outpt oxygen and home health.
[2019-01-06] MEDS: Mometasone/Formoterol 120 PUFF INHALER INH SCH (07:25)
[2019-01-06 07:48] VITALS: BP 141/83; TEMP 98.1
[2019-01-06] MEDS: Amlodipine 5 MG TAB PO SCH (07:51)
[2019-01-06] MEDS: Enoxaparin Sodium 30 MG/0.3 ML SYRINGE SC SCH (07:51)
[2019-01-06] MEDS: Montelukast Sodium 10 mg Tablet PO SCH (07:51)
--- NOTE | 2019-01-06 23:50 | DIS ---
DATE OF ADMISSION: 01/01/2019 DATE OF DISCHARGE: 01/06/2019 RESIDENT: Shara Sharp DO ADMITTING ATTENDING: Tricia Marroquin MD DISCHARGE ATTENDING: Devika Elmore MD CONSULTS: 1. Cardiology, Bozena Newton MD. 2. Pulmonology, Felipe Leija MD . 3. Case management. PROCEDURES PERFORMED: None. DIAGNOSES: 1. Chronic obstructive pulmonary disease exacerbation. 2. Chronic bronchitis. 3. Hypertension. 4. Metastatic colon cancer. DISCHARGE MEDICATIONS: 1. ProAir. 2. Amlodipine 5 mg daily. 3. Azithromycin 250 mg p.o. for two more days. 4. Tessalon Perles 100 mg p.o. t.i.d. p.r.n. 5. Symbicort 160 mcg p.o. b.i.d. 6. DuoNeb q.4 hours p.r.n. 7. Singulair 10 mg p.o. daily. 8. Prednisone 40 mg for four days, 30 mg for four days, 20 mg for four days, and 10 mg for four days. HISTORY OF PRESENT ILLNESS/HOSPITAL COURSE: Ms. Miller is an 83-year-old female with a history of hypertension, metastatic colon cancer with mets to the liver, CHF, COPD, and asthmatic bronchitis. She was admitted to [facility] for COPD exacerbation and worsening respiratory status. The patient was treated with DuoNeb, prednisone, and azithromycin for COPD exacerbation. While here, she required oxygen and was thought to need new home O2 oxygen requirement. The patient gradually got better while she was here at the hospital. On the day of discharge, her oxygen saturation was 96% at rest on room air and 91% with exercise at room air. The patient was discharged without oxygen. The patient was discharged with a two week steroid taper and two more days of azithromycin. The patient has a followup with Dr. Elmore in 1 week. The patient was also given DuoNeb for her nebulizer home therapy. The patient was stable upon discharge, not requiring oxygen and eager to go home. DISCHARGE INSTRUCTIONS: 1. Location: Home. 2. Diet: Heart healthy. 3. Activity: As tolerated. 4. Followup: Follow up with Dr. Elmore, primary care physician, in one weeks' time. Job ID: [id number]
--- NOTE | 2019-01-08 02:48 | PQF ---
ROBERT LIRA KATHERINE MD [id number] [id number] CLINICAL DOCUMENTATION CLARIFICATION FORM: POST DISCHARGE Addendum to original discharge summary date: ____ Late entry note date: __ DATE: 01/08/19 ATTN: Devika Oseguera Please exercise your independent, professional judgment in responding to the clarification form. Clinical indicators are provided on the bottom of this form for your review Please check appropriate box(s) to clarify if the following diagnosis has been ruled in or ruled out: Pneumonia [ ] Ruled in diagnosis [ ] Continue to treat [ ] Resolved [ x ] Ruled out diagnosis [ ] Cannot rule out diagnosis [ ] Other diagnosis [ ] Unable to determine In addition, please specify: Present on Admission (POA): [ ] Yes [ ] No [ ] Unable to determine For continuity of documentation, please document condition throughout progress notes and discharge summary. Thank You. CLINICAL INDICATORS - SIGNS / SYMPTOMS / LABS Family Medicine H&p p1 01/01 Dr Lin Pt reports that she has had increased work of breathing and cough for 1 year, though it has increased over the last week Family Medicine H&p p1 01/01 Dr Lin She sleeps on 2-3 pillows at night Consult p2 01/01 Dr Newton Chest X-ray shoe some increasing densities at both sides bilaterally chest, especially in the upper lobes and mid upper lobes Consult 01/01 Dr Newton Possible Pneumonia this will be dealt by primary care service RISK FACTORS Family Medicine H&p p2 01/01 - Second hand smoke >30 years Family Medicine H&p p2 01/01 - Chronic Bronchitis Family Medicine H&p p2 01/01 - COPD exacerbation PN p1 01/05 Acute hypoxic respiratory failure TREATMENTS MAY 07 Duonebs MAY 07 Steroids MAY 07 Azithromycin Family Medicine H&p 01/01 - O2 3L via nasal cannula Transition Program Manager consult 01/01 Felipe Porter (This form is maintained as a part of the permanent medical record) 2014 [employer] All Rights Reserved [email or web address] [not provided] MTDD
--- NOTE | 2019-01-08 02:49 | PQF ---
ROBERT LIRA KATHERINE MD [id number] CLINICAL DOCUMENTATION CLARIFICATION FORM: POST DISCHARGE Addendum to original discharge summary date: ____ Late entry note date: __ DATE: 01/08/19 ATTN: Devika Oseguera Please exercise your independent, professional judgment in responding to the clarification form. Clinical indicators are provided on the bottom of this form for your review Please check appropriate box(s) to clarify if the following diagnosis has been ruled in or ruled out: Acute Hypoxic Respiratory Failure [ ] Ruled in diagnosis [ ] Continue to treat [ ] Resolved [ ] Ruled out diagnosis [ ] Cannot rule out diagnosis [ ] Other diagnosis [ ] Unable to determine In addition, please specify: Present on Admission (POA): [ x ] Yes [ ] No [ ] Unable to determine For continuity of documentation, please document condition throughout progress notes and discharge summary. Thank You. CLINICAL INDICATORS - SIGNS / SYMPTOMS / LABS Family Medicine H&p p1 01/01 Dr Lin Pt reports that she has had increased work of breathing and cough for 1 year, though it has increased over the last week Family Medicine H&p p1 01/01 Dr Lin She sleeps on 2-3 pillows at night Consult p2 01/01 Dr Newton Chest X-ray shoe some increasing densities at both sides bilaterally chest, especially in the upper lobes and mid upper lobes Consult 01/01 Dr Newton Possible Pneumonia this will be dealt by primary care service RISK FACTORS Family Medicine H&p p2 01/01 - Second hand smoke >30 years Family Medicine H&p p2 01/01 - Chronic Bronchitis Family Medicine H&p p2 01/01 - COPD exacerbation PN p1 01/05 Acute hypoxic respiratory failure TREATMENTS MAY 07 Duonebs MAY 07 Steroids MAY 07 Azithromycin Family Medicine H&p 01/01 - O2 3L via nasal cannula Geological Science Teacher consult 01/01 Felipe Porter (This form is maintained as a part of the permanent medical record) 2014 [employer] All Rights Reserved [email or web address] [not provided] MTDD
== END 2019-01-06 11:41 | disposition home health service (06) | DRG 189 ==
LOC: 2NO 13:03 → T4-B 01-03 13:31
PROVIDERS: ADMIT Family Medicine; ATTEND Family Medicine
DX: J96.01 Acute respiratory failure with hypoxia (principal); J44.1 Chronic obstructive pulmonary disease with (acute) exacerbation; C18.9 Malignant neoplasm of colon, unspecified; C78.7 Secondary malignant neoplasm of liver and intrahepatic bile duct; I50.32 Chronic diastolic (congestive) heart failure; I13.0 Hypertensive heart and chronic kidney disease with heart failure and stage 1 through stage 4 chronic kidney disease, or unspecified chronic kidney disease; Z77.22 Contact with and (suspected) exposure to environmental tobacco smoke (acute) (chronic); N18.9 Chronic kidney disease, unspecified; I08.3 Combined rheumatic disorders of mitral, aortic and tricuspid valves; Z90.5 Acquired absence of kidney; Z88.8 Allergy status to other drugs, medicaments and biological substances; Z79.899 Other long term (current) drug therapy; Z85.3 Personal history of malignant neoplasm of breast; Z23 Encounter for immunization; Z90.49 Acquired absence of other specified parts of digestive tract
CPT/HCPCS: 36415; 80048; 80053; 83735; 84145; 85025; 85027; 90471; 90662; 93306; 94060; 94640; 94727; G0008; J1650; J7512; J7620

== ENCOUNTER 2019-11-12 19:31 | Inpatient (IN) | payer MEDICARE, OTHER ==
[2019-11-12] MEDS ORDERED: Acetaminophen 500 MG TAB ONE (20:01)
[2019-11-12 20:57] LABS: SARS-CoV-2 NAA Rapid Test DETECTED (NotDetected)
[2019-11-12] MEDS ORDERED: Acetaminophen 650 MG Suppository PR PRN (23:22)
[2019-11-12] MEDS ORDERED: Heparin 10,000 UNITS/ 10 ML VIAL SLOW IVP SCH (23:30)
[2019-11-12] MEDS ORDERED: Heparin 25,000 units/D5W 500 ML IVPB SCH (23:30)
[2019-11-12] MEDS ORDERED: Azithromycin 250 MG TAB PO SCH (23:45)
--- NOTE | 2019-11-12 23:57 | PDOC.FPRHP ---
- History of Present Illness Chief Complaint: sob History of Present Illness: 84 yo F with COPD transferred from [place] for possible PE and COVID. Patient was seen last at Dr. Elmore's office for SOB in which she was treated for COPD exacerbation. Was put on prednisone. Because of worsening SOB and increasing cough today she went in to the ER. Diagnosed with COVID. Not hypoxic and not requiring supplemental O2. Ddimer was elevated at 2.14 however due to her renal function (hx of left nephrectomy) she couldn't undergo CTA to r/o PE. She denies tobacco use, recent surgery, or recent immobilization or hx of blood clots. On my exam patient was still mildly SOB, non hypoxic, no retractions. Denies chest pain, dysuria, fevers, chills. Did endorse clear sputum production and wheezing. In regards to COVID she was exposed to her son (nephew)? in July but hasn't had any recent exposures. Has been out and about in community. Denies loss of taste, smell, diarrhea, rhinorrhea. - Allergies/Adverse Reactions Allergies Allergy/AdvReac Type Severity Reaction Status Date / Time aspirin Allergy Verified 05/19/19 10:56 - Home Medications Medication Instructions Recorded Confirmed Type Montelukast Sodium [Singulair] 10 mg PO DAILY 01/01/19 11/13/19 History Benzonatate [Tessalon] 100 mg PO TIDPRN PRN 7 Days #21 cap 01/04/19 11/13/19 Rx Ipratropium/Albuterol Sulfate 3 ml NEB [id number] #90 neb 01/06/19 11/13/19 Rx [DuoNeb] Bisacodyl [Dulcolax] 5 mg PO DAILY PRN 11/13/19 11/13/19 History Budesonide/Formoterol Fumarate 2 puff IH BID 11/13/19 11/13/19 History [Budesonide-Formoterol 160-4.5] Ciprofloxacin HCl 500 mg PO BID 11/13/19 11/13/19 History Losartan/Hydrochlorothiazide 1 each PO BID 11/13/19 11/13/19 History [Losartan-Hctz 50-12.5 mg Tab] predniSONE 20 mg PO BID 11/13/19 11/13/19 History - History PMHx:Hx of colon cancer, COPD, HTN PSHx: Colonic resection, knee replacement, cataracts FHx:HTN, DM2, no blood clots Social:Denies prior or current use of TAD - Review of Systems General: reports: fatigue. denies: fever/chills, weight/appetite/sleep changes, night sweats ENT: denies: nasal congestion, rhinorrhea Respiratory: reports: cough, shortness of breath. denies: congestion Cardiovascular: denies: chest pain, palpitation, edema Gastrointestinal: denies: vomiting, diarrhea, constipation, abdominal pain Genitourinary: denies: incontinence, dysuria Skin: denies: rashes, lesions Musculoskeletal: denies: pain, tenderness, stiffness Neurological: denies: numbness, syncope, seizure Psychological: denies: anxiety, depression - Vital signs BP: [153/96] HR: [90] RR: [18] Tmax: [98.6] Pox: [99]% on [RA] - Physical Exam Constitutional: NAD, awake, alert and oriented HEENT: normocephalic and atraumatic, PERRLA, EOMI, conjunctiva clear, no scleral icterus Neck: FROM, trachea midline Heart: RRR, normal S1/S2, no murmurs/rubs/gallops, pulses present -Lungs: end expiratory wheezing on right side on ausculation diffuse rhonchi Abdomen: soft, non-tender, no masses/distention Musculoskeletal: normal structure Neurological: no focal deficit Skin: no rash/lesions, good turgor, capillary refill <2 seconds, no jaundice Heme/Lymphatic: no unusual bruising or bleeding, no purpura Psychiatric: normal mood and affect, good judgment and insight, intact recent and remote memory FMR H&P: Results - Labs Result Diagrams: 11/13/19 04:40 11/13/19 03:30 - EKG Interpretation EKG: Normal sinus rhythm Inverted T waves in I and aVL - Radiology Interpretation Chest x-ray Status: image reviewed by me, report reviewed by me Additional comment: elevation of right hemidiaphragm enlarged heart silhouette no consolidation FMR H&P: A/P - Plan 84 yo F admitted for COPD exacerbation, possible PE, COVID+ #Possible PE -Elevated Ddimer at 2.14 -Unable to do CTA due to renal function. -Will start heparin bolus & drip for treatment of PE -Discuss with day team continuing workup #COVID -COV+ test on 11/12, day 5 of symptoms -Will get LDH, ESR, CRP, CPK, ferritin -Prednisone -Precuations #COPD exacerbation, mild -Non hypoxic -Will continue prednisone 40mg po daily -Will treat with rocephin & azithromycin -Albuterol MDI since covid positive #DIMA vs. CKD, hx of left nephrectomy -Cr 1.77, 1.61 on 10/18 -mIVF, recheck in AM #HTN -Stable, continue home meds #Hx of UTI -Treated on at Dr. Elmore's office -Didn't complete cipro regimen, but asx and urine not c/w with UTI -Getting rocephin for COPD exacerbation, d/c cipro dvt ppx: . heparin gi ppx: n/i code: full pcp: kristi dispo: >2 midnights discussed w/ dr. galindo FMR H&P: Upper Level - Plan Date/Time: 11/12/19 0100 I, [], have evaluated this patient and agree with findings/plan as outlined by customer marketing intern resident. Pertinent changes/additions are listed here. Addendum - Attending - Attending Attestation Date/Time: 11/13/19 582 I personally evaluated the patient and discussed the management with the team. I agree with the History, Examination, Assessment and Plan documented above with any addition or exceptions noted below. Tired appearing but not in any respiratory distress. No contact isolation stethoscope in isolation room. Change to IV steroids. Treat with anticoag per usual COVID tx in the inpt setting. I feel a PE is unlikely.
[2019-11-13] MEDS ORDERED: predniSONE 20 MG TAB PO SCH ×2 (00:09→08:00)
[2019-11-13 00:45] LABS: Hemoglobin 12.3 g/dL (12.0-16.0); Platelet Count 133 thou/uL (130-400)
[2019-11-13] MEDS ORDERED: Azithromycin 250 MG TAB PO SCH (00:49)
[2019-11-13 01:06] LABS: CRP (Inflammatory) 7.05 mg/dL (= or < 0.5)
[2019-11-13] MEDS: Lactated Ringer's 1,000 ML IV SCH ×3 (01:35→20:45)
[2019-11-13] MEDS: cefTRIAXone\\ROCEPHIN 1 GM in Sodium Chloride 0.9% 100 ML IVPB SCH (01:36)
[2019-11-13] MEDS: Albuterol 200 PUFF (6.7GM INHALER) INH SCH ×6 (01:36→20:41)
[2019-11-13] MEDS: Benzonatate 100 MG CAP PO PRN (01:40)
[2019-11-13 02:47] VITALS: BMI 23.8
[2019-11-13 08:18] LABS: #Lymphocytes 0.5 thou/uL (1.20-3.40); #Monocytes 0.3 thou/uL (0.11-0.59); #Neutrophils 6.1 thou/uL (1.40-6.50); %Basophils 0.4 % (0.0-1.0); %Eosinophils 0.3 % (0.0-10.0); %Lymphocytes 7.4 % (21.0-51.0); %Monocytes 4.6 % (0.0-10.0); %Neutrophils 87.4 % (42.0-75.0); Hemoglobin 12.1 g/dL (12.0-16.0); Mean Corpuscular HGB CONC 31.7 g/dL (32.0-36.0); Mean Corpuscular Hemoglobin 29.9 pg (27.0-31.0); Mean Corpuscular Volume 94.4 fL (78.0-98.0); Mean Platelet Volume 9.1 fL (7.4-10.4); Platelet Count 134 thou/uL (130-400); Red Blood Cell (RBC) Count 4.03 mill/uL (4.20-5.40)
[2019-11-13] MEDS: Montelukast Sodium 10 mg Tablet PO SCH (08:22)
[2019-11-13 08:47] LABS: ALT (SGPT) 23 U/L (8-55); AST (SGOT) 29 U/L (5-34); Albumin 3.4 g/dL (3.4-4.8); Alkaline Phosphatase 67 U/L (40-110); Anion Gap 13 mmol/L (10-20); BUN (Urea Nitrogen) 35 mg/dL (9.8-20.1); Bilirubin, Total 0.3 mg/dL (0.2-1.2); Calc. Creatinine Clearance 36 mL/min (70-130); Calcium 8.7 mg/dL (7.8-10.44); Carbon Dioxide 24 mmol/L (23-31); Chloride 101 mmol/L (98-107); Estimated GFR-MDRD 42; Globulin 2.4 g/dL (2.4-3.5); Glucose 124 mg/dL (83-110); Potassium 3.9 mmol/L (3.5-5.1); Protein, Total 5.8 g/dL (6.0-8.3); Sodium 134 mmol/L (136-145)
[2019-11-13 09:28] LABS: PTT 118.3 sec (22.9-36.1)
--- NOTE | 2019-11-13 10:39 | PDOC.FM ---
- Subjective Subjective: Pt states that she is feeling better than when she came in. Continues to have chills and cough. Gets winded with ambulation. - Objective Vital Signs & Weight: Vital Signs (12 hours) Temp Pulse Resp BP Pulse Ox 11/13/19 08:00 98.1 F 88 18 132/81 94 L 11/12/19 23:50 98.2 F 83 18 155/82 H 95 Weight Weight 77.292 kg Result Diagrams: 11/13/19 04:40 11/13/19 03:30 Phys Exam - Physical Examination Constitutional: NAD HEENT: moist MMs Diffuse rhonci and crackles Cardiovascular: RRR Gastrointestinal: soft, non-tender Musculoskeletal: no edema, pulses present Neurological: moves all 4 limbs Psychiatric: normal affect, A&O x 3 Skin: cap refill <2 seconds Dx/Plan - Plan Plan: 84 yo F admitted for COPD exacerbation, possible PE, COVID+ Pulmonary Embolism R/O -Elevated Ddimer at 2.14 -CTA not done on admission due to renal insufficiency -Improved today, will proceed with CTA to r/o COVID -COV+ test on 11/12, day 5 of symptoms -COVID markers elevated -Dex -Precuations -Convalescent plasma -Discussed case with Dr. Wolfe, agreed with remdesivir COPD exacerbation, mild -Changes steroids to dex -Will treat with rocephin & azithromycin -Albuterol MDI since covid positive DIMA vs. CKD, hx of left nephrectomy - improved -Cr 1.77, 1.61 on 10/18 -mIVF, recheck in AM HTN -Stable, continue home meds Hx of UTI -Treated on at Dr. Elmore's office -Didn't complete cipro regimen, but asx and urine not c/w with UTI -Getting rocephin for COPD exacerbation, d/c cipro dvt ppx: transition to eliquis code: full pcp: kristi dispo: >2 midnights Plan: R/O PE with CTA. Initiate tx of COVID PNA - convalescent plasma, anticoagulation, steroids, remdesivir. Monitor clinical course. Addendum - Attending - Attending Attestation Date/Time: 11/13/19 0852 I personally evaluated the patient and discussed the management with Dr. Kimbrough. I agree with the History, Examination, Assessment and Plan documented above with any addition or exceptions noted below. Patient is coughing but states she feels a little better. O2 sats currently 90% on room air. She is usually > 95% in my office. Will get CTA chest to r/o PE. Will start convalescent plasma and speak with Dr. Wolfe regarding remdesivir. Change to IV steroids.
--- NOTE | 2019-11-13 12:25 | CT ---
CT PULMONARY ANGIOGRAM WITH IV CONTRAST AND 3-D POSTPROCESSING: HISTORY:Difficulty breathing FINDINGS: There is good contrast opacification of the pulmonary arterial vasculature without filling defects to suggest pulmonary embolism. The thoracic aorta is well opacified without aneurysm or dissection. No right pleural or pericardial effusions are seen. A small left pleural effusion is present. No pneumothoraces are noted. There are peripheral patchy groundglass infiltrates in the lung noel b ilaterally There are degenerative changes in the spine. There is a 1.5 cm cyst in the dome of the liver. IMPRESSION: 1. No CT evidence of pulmonary embolism. 2. Parenchymal lung findings are in a pattern which could be seen in the setting of viral pneumonias.
[2019-11-13] MEDS ORDERED: Iopamidol-370 76% 500 ML 1 ML ONE (15:21)
[2019-11-13] MEDS ORDERED: REMDESIVIR (EUA) 200 MG in Sodium Chloride 0.9% 250 ML 210 ML IV SCH ×2 (18:00→21:00)
[2019-11-13] MEDS: Azithromycin 250 MG TAB PO SCH (20:41)
[2019-11-13] MEDS: Apixaban 2.5 MG TAB PO SCH (20:41)
[2019-11-13] MEDS: Acetaminophen 325 MG TAB PO PRN (20:54)
[2019-11-14] MEDS: Albuterol 200 PUFF (6.7GM INHALER) INH SCH ×6 (01:41→20:35)
[2019-11-14] MEDS: cefTRIAXone\\ROCEPHIN 1 GM in Sodium Chloride 0.9% 100 ML IVPB SCH (01:45)
[2019-11-14] MEDS: Acetaminophen 325 MG TAB PO PRN ×3 (03:12→20:15)
[2019-11-14] MEDS: Lactated Ringer's 1,000 ML IV SCH ×2 (05:46→12:12)
--- NOTE | 2019-11-14 07:42 | PDOC.FM ---
- Subjective Subjective: Pt states she had a difficult night last night and was unable to sleep. Her difficulty breathing waxes and wanes throughout the day. Does not feel that it gets significantly worse with ambulation. - Objective Vital Signs & Weight: Vital Signs (12 hours) Temp Pulse Pulse Resp BP BP Pulse Ox 11/14/19 03:00 100.2 F H 103 H 22 H 165/96 H 96 11/13/19 23:18 99.2 F 85 18 137/98 H 99 11/13/19 21:00 99.5 F 83 20 192/89 H 11/13/19 20:00 99.5 F 83 20 192/89 H 93 L Weight Weight 77.292 kg I&O: 11/13/19 11/14/19 11/15/19 06:59 06:59 06:59 Intake Total 2360 Balance 2360 Result Diagrams: 11/14/19 07:52 11/14/19 07:52 Phys Exam - Physical Examination Constitutional: NAD HEENT: moist MMs Neck: full ROM Diffuse rales and rhonchi throughout, coarse breath sounds Cardiovascular: RRR Gastrointestinal: soft, non-tender, no distention Musculoskeletal: no edema Neurological: moves all 4 limbs Psychiatric: normal affect, A&O x 3 Skin: cap refill <2 seconds Dx/Plan - Plan Plan: Pulmonary Embolism R/O - negative -CTA negative for PE COVID -COV+ test on 11/12, day 6 of symptoms -Requiring 2L supplemental O2 currently -Ferritin increased from yesterday -Dex -Precuations -Convalescent plasma - 1 unit on 11/12 -Remdesivir COPD exacerbation, mild -Changes steroids to dex -Will treat with rocephin & azithromycin -Albuterol MDI since covid positive DIMA vs. CKD, hx of left nephrectomy - improved -Cr stable at 1.47 -mIVF, recheck in AM HTN -Stable, continue home meds Hx of UTI -Treated on at Dr. Elmore's office -Didn't complete cipro regimen, but asx and urine not c/w with UTI -Getting rocephin for COPD exacerbation, d/c cipro dvt ppx: transition to eliquis code: full pcp: kristi dispo: >2 midnights Plan: PE ruled out. COVID management with steroids, s/p convalescent plasma, remdesivir x5days. Addendum - Attending - Attending Attestation Date/Time: 11/14/19 3244 I personally evaluated the patient and discussed the management with Dr. Kimbrough. I agree with the History, Examination, Assessment and Plan documented above with any addition or exceptions noted below. The patient is receiving remdesivir, plasma, steroids. She does required oxygen and gets short of breath with exertion. Continue supportive care. CTA negative for clot.
[2019-11-14 08:03] LABS: #Lymphocytes 0.7 thou/uL (1.20-3.40); #Monocytes 0.3 thou/uL (0.11-0.59); #Neutrophils 6.4 thou/uL (1.40-6.50); %Basophils 0.2 % (0.0-1.0); %Eosinophils 0.1 % (0.0-10.0); %Lymphocytes 8.9 % (21.0-51.0); %Monocytes 4.5 % (0.0-10.0); %Neutrophils 86.4 % (42.0-75.0); Hemoglobin 11.8 g/dL (12.0-16.0); Mean Corpuscular HGB CONC 32.2 g/dL (32.0-36.0); Mean Corpuscular Hemoglobin 30.2 pg (27.0-31.0); Mean Corpuscular Volume 93.8 fL (78.0-98.0); Mean Platelet Volume 8.3 fL (7.4-10.4); Platelet Count 151 thou/uL (130-400); Red Blood Cell (RBC) Count 3.91 mill/uL (4.20-5.40); White Blood Cell (WBC) Count 7.4 thou/uL (4.8-10.8)
[2019-11-14] MEDS: Montelukast Sodium 10 mg Tablet PO SCH (08:03)
[2019-11-14] MEDS: Apixaban 2.5 MG TAB PO SCH ×2 (08:03→20:15)
[2019-11-14] MEDS: Dexamethasone 4 mg/ml Vial SLOW IVP SCH (08:03)
[2019-11-14 08:21] LABS: ALT (SGPT) 20 U/L (8-55); AST (SGOT) 28 U/L (5-34); Albumin 3.1 g/dL (3.4-4.8); Alkaline Phosphatase 61 U/L (40-110); Anion Gap 12 mmol/L (10-20); BUN (Urea Nitrogen) 32 mg/dL (9.8-20.1); Bilirubin, Total 0.3 mg/dL (0.2-1.2); Calc. Creatinine Clearance 36 mL/min (70-130); Calcium 8.7 mg/dL (7.8-10.44); Carbon Dioxide 26 mmol/L (23-31); Chloride 99 mmol/L (98-107); Estimated GFR-MDRD 41; Globulin 2.4 g/dL (2.4-3.5); Glucose 102 mg/dL (83-110); Potassium 3.6 mmol/L (3.5-5.1); Protein, Total 5.5 g/dL (6.0-8.3); Sodium 133 mmol/L (136-145)
[2019-11-14] MEDS: Benzonatate 100 MG CAP PO PRN ×2 (08:24→20:15)
[2019-11-14] MEDS ORDERED: REMDESIVIR (EUA) 100 MG in Sodium Chloride 0.9% 250 ML 230 ML IV SCH (18:00)
[2019-11-14] MEDS: Mometasone 200 MCG/Formoterol 5 MCG 120 PUFF INHALER INH SCH (18:42)
[2019-11-14] MEDS: Azithromycin 250 MG TAB PO SCH (20:15)
[2019-11-14] MEDS: REMDESIVIR (EUA) 100 MG in Sodium Chloride 0.9% 250 ML 230 ML IV SCH (20:17)
[2019-11-15] MEDS: cefTRIAXone\\ROCEPHIN 1 GM in Sodium Chloride 0.9% 100 ML IVPB SCH (01:01)
[2019-11-15] MEDS: Albuterol 200 PUFF (6.7GM INHALER) INH SCH ×6 (01:02→20:10)
[2019-11-15] MEDS: Mometasone 200 MCG/Formoterol 5 MCG 120 PUFF INHALER INH SCH ×2 (06:20→17:52)
[2019-11-15 06:27] LABS: #Lymphocytes 0.9 thou/uL (1.20-3.40); #Monocytes 0.5 thou/uL (0.11-0.59); #Neutrophils 6.8 thou/uL (1.40-6.50); %Basophils 0.6 % (0.0-1.0); %Lymphocytes 10.9 % (21.0-51.0); %Monocytes 5.7 % (0.0-10.0); %Neutrophils 82.8 % (42.0-75.0); Hemoglobin 12.2 g/dL (12.0-16.0); Mean Corpuscular HGB CONC 30.4 g/dL (32.0-36.0); Mean Corpuscular Hemoglobin 28.4 pg (27.0-31.0); Mean Corpuscular Volume 93.5 fL (78.0-98.0); Mean Platelet Volume 8.4 fL (7.4-10.4); Platelet Count 201 thou/uL (130-400); RBC Distribution Width 13.3 % (11.5-14.5); Red Blood Cell (RBC) Count 4.28 mill/uL (4.20-5.40); White Blood Cell (WBC) Count 8.3 thou/uL (4.8-10.8)
[2019-11-15 06:47] LABS: ALT (SGPT) 25 U/L (8-55); AST (SGOT) 31 U/L (5-34); Albumin 3.2 g/dL (3.4-4.8); Alkaline Phosphatase 66 U/L (40-110); Anion Gap 14 mmol/L (10-20); BUN (Urea Nitrogen) 36 mg/dL (9.8-20.1); Bilirubin, Total 0.3 mg/dL (0.2-1.2); Calc. Creatinine Clearance 36 mL/min (70-130); Calcium 9.1 mg/dL (7.8-10.44); Carbon Dioxide 24 mmol/L (23-31); Chloride 101 mmol/L (98-107); Estimated GFR-MDRD 41; Globulin 2.7 g/dL (2.4-3.5); Glucose 104 mg/dL (83-110); Protein, Total 5.9 g/dL (6.0-8.3); Sodium 135 mmol/L (136-145)
[2019-11-15] MEDS: Dexamethasone 4 mg/ml Vial SLOW IVP SCH (08:32)
[2019-11-15] MEDS: Acetaminophen 325 MG TAB PO PRN ×2 (08:32→20:10)
[2019-11-15] MEDS: Apixaban 2.5 MG TAB PO SCH ×2 (08:32→20:10)
[2019-11-15] MEDS: Montelukast Sodium 10 mg Tablet PO SCH (08:32)
--- NOTE | 2019-11-15 10:03 | PDOC.FM ---
- Subjective Subjective: Pt states that she feel better than the day prior, regardless of the fact that she is requiring more oxygen. She had me talk to her daughter on the phone in the room to answer her questions. She continues to have intermittent coughing with sputum production. - Objective Vital Signs & Weight: Vital Signs (12 hours) Temp Pulse Resp BP Pulse Ox 11/15/19 09:00 98.2 F 89 20 149/84 H 91 L 11/15/19 05:50 98.2 F 92 20 137/78 92 L 11/15/19 00:50 98.5 F 83 21 H 134/80 93 L Weight Weight 77.292 kg I&O: 11/14/19 11/15/19 11/16/19 06:59 06:59 06:59 Intake Total 2360 970 Balance 2360 970 Result Diagrams: 11/16/19 06:30 11/16/19 06:30 Phys Exam - Physical Examination Constitutional: NAD HEENT: moist MMs Neck: full ROM Coarse throughout with scattered rales Cardiovascular: RRR Gastrointestinal: soft, non-tender Musculoskeletal: no edema Neurological: moves all 4 limbs Psychiatric: normal affect, A&O x 3 Dx/Plan - Plan Plan: COVID -COV+ test on 11/12, day 6 of symptoms -Ferritin increased from yesterday -Dex -Precuations -Convalescent plasma - 1 unit on 11/12 -Remdesivir treatment x5d -Increased O2 requirement overnight, now on 5L - Will get ABG and likely start high flow COPD exacerbation, mild -Changes steroids to dex -Will treat with rocephin & azithromycin -Albuterol MDI since covid positive DIMA vs. CKD, hx of left nephrectomy - improved -Cr stable -mIVF, recheck in AM HTN -Stable, continue home meds Hx of UTI -Treated on at Dr. Elmore's office -Didn't complete cipro regimen, but asx and urine not c/w with UTI -Getting rocephin for COPD exacerbation, d/c cipro dvt ppx: transition to eliquis code: full pcp: kristi dispo: >2 midnights Plan: ABG ordered. Will likely initiate high flow O2 for increasing oxygen requirement. Continue current tx regimen otherwise. Addendum - Attending - Attending Attestation Date/Time: 11/15/19924 I personally evaluated the patient and discussed the management with Dr. Kimbrough. I agree with the History, Examination, Assessment and Plan documented above with any addition or exceptions noted below. The patient is resting fairly comfortably in bed but the nurse is at her bedside and states that she just walked in and noted pt's sats to be in the mid 80's. S he has increased her O2 to 5L and pt remains 86-90%. She is cough and the cough is productive. The patient has received convalescent plasma and is on remdesivir and high-dose steroids. Will get RT to look at pt, as I think she will need high-flow O2. Pt's daughter was called while we were in the room with the patient and questions and concerns were addressed. Will monitor pt closely as her her inflammatory markers are increasing as is her oxygen requirement. If she decompensates further, she may need to transfer to the IMCU or ICU. This was discussed with the pt who voiced understanding.
[2019-11-15 11:05] LABS: Actual Bicarbonate (HCO3a) 24.4 mEq/L (22-28); Base Excess (BEa) 0.8 mEq/L (-2.0 to +3.0); CO2 Tension 35.8 mmHg (35.0-45.0); Calcium, Ionized (arterial) 1.23 mmol/L (1.12-1.30); Carboxyhemoglobin (COHb) 0.6 gm% (0.0-3.0); Hemoglobin (Hb) 12.8 g/dL (12.0-16.0); pH, Arterial 7.45 (7.35-7.45)
[2019-11-15 11:15] LABS: Puncture Site L.R.
[2019-11-15] MEDS: Azithromycin 250 MG TAB PO SCH (20:10)
[2019-11-15] MEDS: Benzonatate 100 MG CAP PO PRN (20:10)
[2019-11-15] MEDS: REMDESIVIR (EUA) 100 MG in Sodium Chloride 0.9% 250 ML 230 ML IV SCH (20:13)
[2019-11-16] MEDS: cefTRIAXone\\ROCEPHIN 1 GM in Sodium Chloride 0.9% 100 ML IVPB SCH (01:14)
[2019-11-16] MEDS: Albuterol 200 PUFF (6.7GM INHALER) INH SCH ×6 (01:15→20:32)
[2019-11-16] MEDS: Mometasone 200 MCG/Formoterol 5 MCG 120 PUFF INHALER INH SCH ×2 (06:17→18:38)
[2019-11-16 07:14] LABS: #Lymphocytes 0.9 thou/uL (1.20-3.40); #Monocytes 0.7 thou/uL (0.11-0.59); #Neutrophils 9.3 thou/uL (1.40-6.50); %Basophils 0.1 % (0.0-1.0); %Eosinophils 0.1 % (0.0-10.0); %Monocytes 6.2 % (0.0-10.0); %Neutrophils 85.6 % (42.0-75.0); Hemoglobin 12.9 g/dL (12.0-16.0); Mean Corpuscular HGB CONC 31.1 g/dL (32.0-36.0); Mean Corpuscular Hemoglobin 29.2 pg (27.0-31.0); Mean Platelet Volume 8.8 fL (7.4-10.4); Platelet Count 245 thou/uL (130-400); RBC Distribution Width 13.2 % (11.5-14.5); Red Blood Cell (RBC) Count 4.41 mill/uL (4.20-5.40); White Blood Cell (WBC) Count 10.9 thou/uL (4.8-10.8)
--- NOTE | 2019-11-16 07:22 | PDOC.FM ---
- Subjective Subjective: pt resting in bed, reports mild sob. denies cp or cough - Objective Vital Signs & Weight: Vital Signs (12 hours) Temp Pulse Resp BP Pulse Ox 11/16/19 05:30 97.7 F 89 24 H 142/78 H 93 L 11/16/19 02:47 95 11/15/19 23:22 98.2 F 80 24 H 138/81 95 11/15/19 20:10 92 L 11/15/19 20:03 97.9 F 85 21 H 160/82 H 92 L Weight Weight 77.292 kg I&O: 11/15/19 11/16/19 11/17/19 06:59 06:59 06:59 Intake Total 970 1280 Balance 970 1280 Result Diagrams: 11/16/19 06:30 11/16/19 06:30 Phys Exam - Physical Examination Constitutional: NAD HEENT: moist MMs Neck: no JVD Respiratory: clear to auscultation bilateral Cardiovascular: no significant murmur Gastrointestinal: no distention Musculoskeletal: pulses present Neurological: moves all 4 limbs Psychiatric: normal affect Skin: no rash Dx/Plan - Plan Plan: COVID -COV+ test on 11/12, day 7 of symptoms -monitor inflammatory markers -Dex, eliquis -Convalescent plasma - 1 unit on 11/12 -Remdesivir treatment x5d -repeat ABG after hi jamila COPD exacerbation, mild -dex, rocephin & azithromycin -Albuterol MDI DIMA vs. CKD, hx of left nephrectomy - improved -Cr stable, monitor - renal dosing meds HTN -Stable, continue home meds Hx of UTI -Treated on at Dr. Elmore's office -Didn't complete cipro regimen, but asx and urine not c/w with UTI -Getting rocephin for COPD exacerbation, d/c cipro dvt ppx: eliquis code: full pcp: kristi dispo: >2 midnights Plan: closely monitor respiratory status today.
[2019-11-16 07:34] LABS: ALT (SGPT) 23 U/L (8-55); AST (SGOT) 29 U/L (5-34); Albumin 3.2 g/dL (3.4-4.8); Alkaline Phosphatase 70 U/L (40-110); Anion Gap 17 mmol/L (10-20); BUN (Urea Nitrogen) 44 mg/dL (9.8-20.1); Bilirubin, Total 0.2 mg/dL (0.2-1.2); Calc. Creatinine Clearance 37 mL/min (70-130); Calcium 9.1 mg/dL (7.8-10.44); Carbon Dioxide 20 mmol/L (23-31); Chloride 104 mmol/L (98-107); Estimated GFR-MDRD 42; Globulin 2.8 g/dL (2.4-3.5); Glucose 112 mg/dL (83-110); Potassium 4.2 mmol/L (3.5-5.1); Sodium 137 mmol/L (136-145)
[2019-11-16 07:49] LABS: Actual Bicarbonate (HCO3a) 23.6 mEq/L (22-28); Base Excess (BEa) -0.1 mEq/L (-2.0 to +3.0); CO2 Tension 35.7 mmHg (35.0-45.0); Calcium, Ionized (arterial) 1.23 mmol/L (1.12-1.30); Carboxyhemoglobin (COHb) 0.6 gm% (0.0-3.0); Hemoglobin (Hb) 13.7 g/dL (12.0-16.0); Potassium - ABG Lab 3.96 mmol/L (3.70-5.30); pH, Arterial 7.44 (7.35-7.45)
[2019-11-16 07:51] LABS: O2 Tension (PaO2), arterial 49.1 mmHg (> 60.0)
[2019-11-16 07:52] LABS: ALV-art Gradient 419.635 mmHg (0-20); Puncture Site RRA
[2019-11-16] MEDS: Benzonatate 100 MG CAP PO PRN ×2 (08:54→20:05)
[2019-11-16] MEDS: Dexamethasone 4 mg/ml Vial SLOW IVP SCH (08:54)
[2019-11-16] MEDS: Montelukast Sodium 10 mg Tablet PO SCH (08:55)
[2019-11-16] MEDS: Apixaban 2.5 MG TAB PO SCH ×2 (08:55→20:05)
--- NOTE | 2019-11-16 15:40 | CON ---
DATE OF CONSULTATION: 11/16/2019 CHIEF COMPLAINT: COVID pneumonia with increasing FiO2 demands. HISTORY OF PRESENT ILLNESS: Ms. Miller is an 84-year-old female, who began to have symptoms between 5 and 7 days prior to presentation to the hospital. She had been seen by her primary physician and the initial presumptive diagnosis of COPD exacerbation was made. She was given inhalers and steroids. Her symptoms did not improve and she was subsequently seen in the emergency room in [place]. Her COVID test was positive. There was concern for possible PE, but she was not a candidate for CT scan due to renal insufficiency. She was subsequently transferred here for further intervention. Since admission, she has been placed on remdesivir and received convalescent plasma. She has been on steroids. She has been on Eliquis following a CT, which did not show evidence of pulmonary embolus. She was initially on nasal oxygen; however, her condition has shown deterioration and she is now on a high-flow nasal cannula at 60%. Pulmonary Service is consulted in a preemptive fashion due to her deteriorating pulmonary status. SOCIAL HISTORY: The patient is an 84-year-old female. She has an intolerance to aspirin. She did not smoke, but had very heavy secondhand smoke exposure due to her over approximately 50 years. HOME MEDICATIONS: Include, 1. Singulair daily. 2. Tessalon Perles p.r.n. 3. DuoNeb p.r.n. 4. Symbicort b.i.d. 5. Ciprofloxacin b.i.d. 6. Losartan-HCT 50/12.5 daily. 7. Prednisone 20 b.i.d. 8. She has subsequently received remdesivir and convalescent plasma. PAST MEDICAL HISTORY: Remarkable for colon cancer with resection. She has a history of COPD secondary to secondhand smoke exposure. She has a history of hypertension. She had a nephrectomy done a couple of years ago for what she describes as chronic infection rather than malignancy. She does not have a history of diabetes or stroke. FAMILY HISTORY: Her son had COVID pneumonia in July. She became positive with symptoms and her family has been tested since her admission and her daughter is noted to be positive. No other contacts are positive yet. It is not identified as to exactly who is her index case. REVIEW OF SYSTEMS: Remarkable for shortness of breath, but negative for loss of smell or taste. She has not had any nausea or vomiting. She has not had any objective fevers or chills. She has had no headache. PHYSICAL EXAMINATION: VITAL SIGNS: Current blood pressure 165/93. She is afebrile with temperature 98.3, heart rate is 83, respiratory rate 22, saturation 95% on high-flow cannula at 60%. She has been on as high as 70% earlier today. GENERAL: She is awake, alert, and only mildly dyspneic. HEENT: Shows no icterus. She has no oropharyngeal Aura. NECK: She has no adenopathy. LUNGS: Show bilateral rhonchi, but no wheezing. She does have mild increased work of breathing. HEART: Regular rate and rhythm without murmur. ABDOMEN: Soft. There is no organomegaly. Bowel sounds are normal. EXTREMITIES: Show no cyanosis, clubbing, or edema. LABORATORY DATA AND DIAGNOSTIC DATA: CT of the chest with PE protocol showed no evidence of pulmonary embolus. She had bilateral interstitial patterns with underlying ground-glass appearance bilaterally. We do not have a followup chest x-ray. White count is 10,900, hemoglobin is 12.9 with hematocrit of 41.5, and a platelet count of 245,000. Her D-dimer is 3.7, blood gas today includes pH of 7.44, CO2 of 36, pO2 of 49, and bicarbonate of 23. This was obtained on high flow oxygen at 40 L and 72%. Electrolytes include sodium 137, potassium 4.2, chloride 104, CO2 is 20, BUN 44, and creatinine 1.45 with calculated GFR of 42. Ferritin level is high. Bilirubin and liver tests are negative. IMPRESSION: 1. Coronavirus disease pneumonia with deterioration despite remdesivir, convalescent serum, and high-dose steroids. She is currently on high-flow cannula with FiO2 ranging from 60% to 70%. Hopefully, we will be able to avoid intubation, although that remains to be seen. 2. Renal insufficiency secondary to prior nephrectomy. 3. History of colon cancer. 4. History of hypertension. 5. History of chronic obstructive pulmonary disease secondary to secondhand smoke exposure. RECOMMENDATIONS: We will continue current therapies. Hopefully, her condition will reach a maximum point and begin to improve. I have talked to her about possibly needing the ventilator, and at this point, she wishes for ventilator support despite what I have explained to her as very high likelihood of mortality, if ventilator is required in her age. I will give her family call here in the next few minutes and catch them up on her current status. The Pulmonary Service will continue to follow and offer additional assistance. Thank you for this consultation. Job ID: [id number]
--- NOTE | 2019-11-16 18:46 | PRG ---
DATE OF SERVICE: 11/16/2019 The patient was seen, evaluated, discussed and examined with the residents by bedside. Please see note from Dr. Harrell, for which I agree. The patient is hospital day 4 for COVID infection. Had the plasma infusion and is on the antiviral agent, also on antibiotics azithromycin and Rocephin, also on dexamethasone. But, she is needing higher and higher doses of oxygen and PO2 this morning is 49. On exam, chest has decreased breath sounds, slightly coarse bilaterally. Did not appear to be in severe distress at all, but definitely lower oxygen. No edema. So the plan is, we have discussed this with Pulmonology. They want to hold off on intubation come by and see her. very poor prognosis in an 84-year-old with hypertension, COPD, diastolic dysfunction with COVID infection. Job ID: [id number]
[2019-11-16] MEDS: Azithromycin 250 MG TAB PO SCH (20:05)
[2019-11-16] MEDS: Acetaminophen 325 MG TAB PO PRN (20:05)
[2019-11-16] MEDS: REMDESIVIR (EUA) 100 MG in Sodium Chloride 0.9% 250 ML 230 ML IV SCH (20:29)
--- NOTE | 2019-11-16 20:31 | PQF ---
CLINICAL DOCUMENTATION CLARIFICATION FORM: Dear Dr. BONILLA Date: 11/16/20192007 Please exercise your independent, professional judgment in responding to the clarification form. Clinical indicators areprovided on the bottom of this form for your review. Please check appropriate box(es): [ x] Acute Respiratory Failure: [ ] with Hypoxia [ ] with Hypercapnia [ ] Acute On Chronic Respiratory Failure: [ ] with Hypoxia [ ] with Hypercapnia [ ] Acute Respiratory Failure due to: (etiology) [ ] Other diagnosis [ ] Unable to determine In addition, please specify: Present on Admission (POA): [x ] Yes [ ] No [ ] Unable to determine For continuity of documentation, please document condition throughout progress notes and discharge summary. Thank You. To be completed by CDI/Coding staff for physician review: CLINICAL INDICATORS - SIGNS / SYMPTOMS / LABS / RESULTS AND LOCATION IN MR 11/14 ABG Po2 44.0 11/15 ABG Po2 49.1 11/14 ABG O2 SAT 80.1 11/15 ABD O2 SAT 83.4 11/12 PN (KLOCKE) GETS WINDED WITH AMBULATION 11/13 PN (KLOCKE) REQUIRING 2L SUPPLEMENTAL O2 CURRENTLY. 11/14 PN (KLOCKE) SHE IS REQUIRING MORE OXYGEN, INCREASED O2 REQUIREMENT OVERNIGHT, NOW ON 5L. 11/15/ CONSULT (UNDERGROVE) IMPRESSION: CORONAVIRUS DISEASE PNEUMONIA WITH DETERIORATION DESPITE REMDESIVIR, CONVALESCENT SERUM, AND HIGH DOSE STEROIDS. SHE IS CURRENTLY ON HIGH FLOW CANNULA WITH FiO2 RANGING FROM 60% -70% HOPEFULLY WE WILL BE ABLE TO AVOID INTUBATION ALTHOUGH THAT REMAINS TO BE SEEN. RISK FACTORS / RESULTS AND LOCATION IN MR DX : COVID 19, COPD EXACERBATION, ADVANCED AGE ( 84), 11/11 H&P ( [facility]) TREATMENTS / RESULTS AND LOCATION IN MR SUPPLEMENTAL OXYGEN ( 11/12 PRESENT) ARTERIAL BLOOD GAS ( 11/14, ) Acute Respiratory Failure: ABG pH < 7.35 or > 7.45; Decreased oxygen saturation (<90% room air or < 95% on oxygen); PCO2 > 50 mm Hg; PO2 < 60 mm Hg; Labored or rapid respirations ARDS: Dx Criteria [[place] ARDS]: Respiratory symptoms within one week of a known clinical insult (e.g. shock, infection, surgery, trauma) Bilateral opacities in CXR/Chest CT not due to CHF or fluid THANK YOU! CDS Signature: Cierra Mahoney RN Phone #: [phone] Date: 11/16/2019 ADRIANA
[2019-11-17] MEDS: Albuterol 200 PUFF (6.7GM INHALER) INH SCH ×6 (01:14→21:40)
[2019-11-17] MEDS: cefTRIAXone\\ROCEPHIN 1 GM in Sodium Chloride 0.9% 100 ML IVPB SCH (01:14)
[2019-11-17] MEDS: Mometasone 200 MCG/Formoterol 5 MCG 120 PUFF INHALER INH SCH ×2 (06:05→19:00)
[2019-11-17 06:13] LABS: #Lymphocytes 0.9 thou/uL (1.20-3.40); #Monocytes 0.8 thou/uL (0.11-0.59); #Neutrophils 11.7 thou/uL (1.40-6.50); %Basophils 0.1 % (0.0-1.0); %Eosinophils 0.1 % (0.0-10.0); %Lymphocytes 6.5 % (21.0-51.0); %Monocytes 6.1 % (0.0-10.0); %Neutrophils 87.2 % (42.0-75.0); Hemoglobin 12.5 g/dL (12.0-16.0); Mean Corpuscular HGB CONC 30.9 g/dL (32.0-36.0); Mean Corpuscular Hemoglobin 28.8 pg (27.0-31.0); Mean Corpuscular Volume 93.3 fL (78.0-98.0); Mean Platelet Volume 8.1 fL (7.4-10.4); Platelet Count 253 thou/uL (130-400); RBC Distribution Width 13.2 % (11.5-14.5); Red Blood Cell (RBC) Count 4.35 mill/uL (4.20-5.40); White Blood Cell (WBC) Count 13.4 thou/uL (4.8-10.8)
[2019-11-17 06:25] LABS: ALT (SGPT) 23 U/L (8-55); AST (SGOT) 27 U/L (5-34); Albumin 3.1 g/dL (3.4-4.8); Alkaline Phosphatase 71 U/L (40-110); Anion Gap 17 mmol/L (10-20); BUN (Urea Nitrogen) 47 mg/dL (9.8-20.1); Bilirubin, Total 0.3 mg/dL (0.2-1.2); Calc. Creatinine Clearance 38 mL/min (70-130); Carbon Dioxide 20 mmol/L (23-31); Chloride 105 mmol/L (98-107); Estimated GFR-MDRD 44; Globulin 2.7 g/dL (2.4-3.5); Glucose 116 mg/dL (83-110); Potassium 4.4 mmol/L (3.5-5.1); Protein, Total 5.8 g/dL (6.0-8.3); Sodium 138 mmol/L (136-145)
--- NOTE | 2019-11-17 06:55 | PDOC.FM ---
- Subjective Subjective: pt resting comfortably in bed on HFNC, reports dyspnea with movement, denies cough - Objective Vital Signs & Weight: Vital Signs (12 hours) Temp Pulse Resp BP Pulse Ox 11/17/19 04:30 98.2 F 89 22 H 152/77 H 94 L 11/17/19 03:45 95 11/17/19 01:00 98 F 90 22 H 95 11/16/19 19:50 98.4 F 82 23 H 160/90 H 93 L Weight Weight 77.292 kg I&O: 11/15/19 11/16/19 11/17/19 06:59 06:59 06:59 Intake Total 970 1280 1350 Balance 970 1280 1350 Result Diagrams: 11/17/19 05:58 11/17/19 05:58 Phys Exam - Physical Examination Constitutional: NAD HEENT: moist MMs Neck: supple even chest rise and fall Gastrointestinal: no distention Musculoskeletal: no edema Neurological: moves all 4 limbs Psychiatric: normal affect Skin: no rash Dx/Plan - Plan Plan: COVID -COV+ test on 11/12, day 8 of symptoms -monitor inflammatory markers -Dex, eliquis -Convalescent plasma - 1 unit on 11/12 -Remdesivir treatment x5d -HFNC COPD exacerbation, mild -dex, rocephin & azithromycin -Albuterol MDI DIMA vs. CKD, hx of left nephrectomy - improved -Cr stable, monitor - renal dosing meds HTN -Stable, continue home meds Hx of UTI -Treated on at Dr. Elmore's office -Didn't complete cipro regimen, but asx and urine not c/w with UTI -Getting rocephin for COPD exacerbation, d/c cipro dvt ppx: eliquis code: full pcp: kristi dispo: >2 midnights Plan: closely monitor respiratory status today.
[2019-11-17] MEDS: Montelukast Sodium 10 mg Tablet PO SCH (09:30)
[2019-11-17] MEDS: Apixaban 2.5 MG TAB PO SCH ×2 (09:31→21:24)
[2019-11-17] MEDS: Dexamethasone 4 mg/ml Vial SLOW IVP SCH (09:31)
--- NOTE | 2019-11-17 13:44 | PRG ---
DATE OF SERVICE: 11/17/2019 Please see the note from Dr. Carlitos Harrell, for which I agree. The patient was seen, evaluated, and discussed with the residents by bedside. The patient seem to be getting worse as far as her COVID yesterday morning, but since yesterday morning, she is fairly stable. Her D-dimer did increase that is a little bit worrisome, but is not necessarily needing any more oxygen than before and lung sound maybe a little bit better than yesterday and she states breathing seems a little bit better than yesterday. So, hopefully it is going in the right direction giving supportive care, azithromycin, dexamethasone, inhalers, nebulizers, etc for her COVID infection. Job ID: [id number]
--- NOTE | 2019-11-17 16:28 | PRG ---
DATE OF SERVICE: 11/17/2019 SUBJECTIVE: In general, she is still dyspneic, but slightly less so than yesterday. Her oxygen demands are also improved and she is down on high-flow nasal cannula from 60% to 50%. She does not have any fevers or chills. OBJECTIVE: VITAL SIGNS: Blood pressure 160/99, saturation 96% on high-flow cannula, temperature 98.2, respiratory rate of 18, heart rate of 85. LUNGS: Bilateral rales without any wheezes. She is mildly dyspneic with increased work of breathing. HEART: Regular rate and rhythm. ABDOMEN: Soft. There is no organomegaly. EXTREMITIES: There is no edema. LABORATORY DATA: White count today 13,400, hemoglobin is 12.5 with hematocrit 40.6, and platelet count 253,000. Her D-dimer has increased to 19 from 3.7. Electrolytes notable for a BUN of 47 and a creatinine of 1.4, again fairly stable given high-dose steroids. IMPRESSION: COVID pneumonia with significant hypoxia, but hopefully she has reached her worsen and is gradually beginning to improve. PLAN: We will continue current therapy including her completion of Remdesivir. She has received convalescent plasma and steroids. Her FiO2 has allowed reduction in high-flow cannula from 60% to 50%. We will continue to observe. Job ID: [id number]
[2019-11-17] MEDS: REMDESIVIR (EUA) 100 MG in Sodium Chloride 0.9% 250 ML 230 ML IV SCH (21:24)
[2019-11-17] MEDS: Benzonatate 100 MG CAP PO PRN (21:25)
[2019-11-17] MEDS: Azithromycin 250 MG TAB PO SCH (21:26)
[2019-11-17] MEDS: Acetaminophen 325 MG TAB PO PRN (21:33)
[2019-11-18] MEDS: Albuterol 200 PUFF (6.7GM INHALER) INH SCH ×6 (01:43→20:18)
[2019-11-18] MEDS: cefTRIAXone\\ROCEPHIN 1 GM in Sodium Chloride 0.9% 100 ML IVPB SCH (01:43)
[2019-11-18 05:59] LABS: #Lymphocytes 1.4 thou/uL (1.20-3.40); #Monocytes 0.6 thou/uL (0.11-0.59); #Neutrophils 12.6 thou/uL (1.40-6.50); %Basophils 0.3 % (0.0-1.0); %Eosinophils 0.1 % (0.0-10.0); %Lymphocytes 9.4 % (21.0-51.0); %Monocytes 4.3 % (0.0-10.0); %Neutrophils 85.9 % (42.0-75.0); Mean Corpuscular HGB CONC 31.2 g/dL (32.0-36.0); Mean Corpuscular Volume 92.9 fL (78.0-98.0); Mean Platelet Volume 8.2 fL (7.4-10.4); Platelet Count 240 thou/uL (130-400); RBC Distribution Width 13.5 % (11.5-14.5); White Blood Cell (WBC) Count 14.6 thou/uL (4.8-10.8)
[2019-11-18] MEDS: Mometasone 200 MCG/Formoterol 5 MCG 120 PUFF INHALER INH SCH ×2 (06:00→18:02)
[2019-11-18 06:19] LABS: ALT (SGPT) 24 U/L (8-55); AST (SGOT) 26 U/L (5-34); Albumin 3.3 g/dL (3.4-4.8); Alkaline Phosphatase 80 U/L (40-110); Anion Gap 16 mmol/L (10-20); BUN (Urea Nitrogen) 52 mg/dL (9.8-20.1); Bilirubin, Total 0.4 mg/dL (0.2-1.2); Calc. Creatinine Clearance 39 mL/min (70-130); Calcium 9.2 mg/dL (7.8-10.44); Carbon Dioxide 20 mmol/L (23-31); Chloride 106 mmol/L (98-107); Estimated GFR-MDRD 45; Globulin 2.7 g/dL (2.4-3.5); Glucose 123 mg/dL (83-110); Potassium 4.3 mmol/L (3.5-5.1); Sodium 138 mmol/L (136-145)
--- NOTE | 2019-11-18 08:23 | PDOC.FM ---
- Subjective Subjective: Patient feeling okay this morning. Complains of a stiff back from having to lay in bed and requests assistance today to be able to sit in bedside chair. Denies any chest pain, SOB, edema. Her HFNC settings were adjusted this morning to an FiO2 of 20 and rate of 50L, when arrived in the room the patient's O2 sat was at 84%. Adjusted FiO2 to 30% with O2 sat rising to 88%, adjusted further to FiO2 40% with O2 sat rising to 91-92%. Notified RT and patient's RN of change and requested further adjustment by RT if needed. - Objective MAR Reviewed: Yes Vital Signs & Weight: Vital Signs (12 hours) Temp Pulse Resp BP Pulse Ox 11/18/19 05:00 98.2 F 90 22 H 154/96 H 95 11/18/19 01:15 98.2 F 73 20 163/96 H 94 L 11/17/19 22:00 98.3 F 80 22 H 158/94 H 95 Weight Weight 77.292 kg I&O: 11/17/19 11/18/19 11/19/19 06:59 06:59 06:59 Intake Total 1350 2080 Balance 1350 2080 Result Diagrams: 11/18/19 05:35 11/18/19 05:35 Phys Exam - Physical Examination Constitutional: NAD HEENT: moist MMs, sclera anicteric Neck: no JVD, supple, full ROM Respiratory: no wheezing, clear to auscultation bilateral Cardiovascular: RRR, no significant murmur Gastrointestinal: soft, non-tender, positive bowel sounds Musculoskeletal: pulses present Neurological: normal sensation, moves all 4 limbs Psychiatric: normal affect, A&O x 3 Skin: no rash, normal turgor Dx/Plan (1) COVID-19 virus detected Code(s): U07.1 - COVID-19 Status: Acute (2) Acute kidney injury superimposed on CKD Code(s): N17.9 - ACUTE KIDNEY FAILURE, UNSPECIFIED; N18.9 - CHRONIC KIDNEY DISEASE, UNSPECIFIED Status: Acute (3) COPD with exacerbation Code(s): J44.1 - CHRONIC OBSTRUCTIVE PULMONARY DISEASE W (ACUTE) EXACERBATION Status: Acute (4) HTN (hypertension) Code(s): I10 - ESSENTIAL (PRIMARY) HYPERTENSION Status: Chronic Qualifiers: Hypertension type: essential hypertension Qualified Code(s): I10 - Essential (primary) hypertension - Plan Plan: Patient is a 84 yo female who presents with respiratory distress is found to have COVID 19: #COVID-19 PNA -COV+ test on 11/12, day 9 of symptoms -monitor inflammatory markers -DDimer 3.75 > 19.5 > greater than 20 -Ferritin 1495 > 1015 > 1005 -Procal 0.22 > 0.16 -Dexamethasone, Eliquis -Convalescent plasma - 1 unit on 11/12 -Remdesivir treatment x5d, completed on 11/16 -Azithromycin x 5d, completed on 11/16 -HFNC--has been requiring 50-60L high flow since 11/14 -will need to arrange for home O2 when able to come off HFNC #COPD exacerbation, mild -dex, rocephin & azithromycin -Albuterol MDI #DIMA on CKD, hx of left nephrectomy - improved - Cr stable, monitor - renal dosing meds #HTN -Stable, continue home meds #Hx of UTI -Treated on at Dr. Elmore's office -Didn't complete cipro regimen, but asx and urine not c/w with UTI -Getting rocephin for COPD exacerbation, d/c cipro Diet: HH VTE: Eliquis Code: full pcp: kristi Dispo: Admitted to inpatient on medical unit. Continue to monitor respiratory status. Anticipate discharge in >48 hours. Addendum - Attending - Attending Attestation Date/Time: 11/18/19 1325 I personally evaluated the patient and discussed the management with Dr. Thompson. I agree with the History, Examination, Assessment and Plan documented above with any addition or exceptions noted below. Mrs Miller reports feeling worse today. On exam, she has right basilar and RML inspiratory rales. No wheeze. An occasional non productive cough is noted. In light of her oxygen requirement and feelings of worsening, we ar going to obtain a CXR and ABG to further assess her respiratory state. She is agreeable to this plan.
[2019-11-18] MEDS: Apixaban 2.5 MG TAB PO SCH ×2 (09:01→20:19)
[2019-11-18] MEDS: Montelukast Sodium 10 mg Tablet PO SCH (09:02)
[2019-11-18] MEDS: Dexamethasone 4 mg/ml Vial SLOW IVP SCH (09:02)
--- NOTE | 2019-11-18 10:51 | PRG ---
DATE OF SERVICE: 11/18/2019 SUBJECTIVE: This morning, she is awake, alert, and responsive. She is on high-flow, rate of 60% to 70%. OBJECTIVE: VITAL SIGNS: Saturations are 90%, respiratory rate 22, temperature 98, blood pressure 160/113. CHEST: No wheezing. No crackles. CARDIAC: Normal S1 and S2. No gallops. ABDOMEN: Soft. LABORATORY DATA: Creatinine 1.3. Ferritin level is normal. Slightly elevated D-dimer, still 20. ASSESSMENT AND PLAN: 1. Cedeño positive pneumonia. 2. Respiratory failure. Agree with antibiotics. She is already on remdesivir. Convalescent plasma. I have increased the dose of steroids on her. We will follow. Job ID: [id number]
[2019-11-18] MEDS: methylPREDNISolone Sod Succ 40 MG VIAL IVP SCH ×2 (12:31→17:09)
--- NOTE | 2019-11-18 13:10 | RAD ---
Chest one view HISTORY: Dyspnea. Pneumonia. COMPARISON: 11/13/2019. FINDINGS: Cardiac silhouette is magnified by projection. Pulmonary vasculature upper limits of normal . Mediastinum is midline with aortic calcification. Widespread predominantly peripheral patchy areas of groundglass opacity throughout each lung have pro gressed slightly since the prior exam. No lobar consolidation or evidence of pneumothorax. IMPRESSION : Slight interval progression of patchy widespread, bilateral groundglass opacity, consistent with mult ifocal viral pneumonitis. No new abnormalities are demonstrated.
[2019-11-18 13:16] LABS: Actual Bicarbonate (HCO3a) 20.7 mEq/L (22-28); Base Excess (BEa) -3.1 mEq/L (-2.0 to +3.0); CO2 Tension 33.5 mmHg (35.0-45.0); Calcium, Ionized (arterial) 1.26 mmol/L (1.12-1.30); Carboxyhemoglobin (COHb) 0.5 gm% (0.0-3.0); Hemoglobin (Hb) 13.9 g/dL (12.0-16.0); O2 Tension (PaO2), arterial 67.9 mmHg (> 60.0); Potassium - ABG Lab 4.35 mmol/L (3.70-5.30); pH, Arterial 7.41 (7.35-7.45)
[2019-11-18 13:17] LABS: ALV-art Gradient 424.975 mmHg (0-20); Puncture Site RRA
[2019-11-19] MEDS: cefTRIAXone\\ROCEPHIN 1 GM in Sodium Chloride 0.9% 100 ML IVPB SCH (00:11)
[2019-11-19] MEDS: Albuterol 200 PUFF (6.7GM INHALER) INH SCH ×6 (00:11→20:50)
[2019-11-19] MEDS: methylPREDNISolone Sod Succ 40 MG VIAL IVP SCH ×4 (00:11→17:03)
[2019-11-19] MEDS: Mometasone 200 MCG/Formoterol 5 MCG 120 PUFF INHALER INH SCH ×2 (05:11→18:33)
[2019-11-19 05:35] LABS: #Lymphocytes 0.7 thou/uL (1.20-3.40); #Monocytes 0.4 thou/uL (0.11-0.59); %Basophils 0.1 % (0.0-1.0); %Lymphocytes 5.1 % (21.0-51.0); %Monocytes 3.1 % (0.0-10.0); %Neutrophils 91.7 % (42.0-75.0); Hemoglobin 12.8 g/dL (12.0-16.0); Mean Corpuscular HGB CONC 31.9 g/dL (32.0-36.0); Mean Corpuscular Hemoglobin 29.6 pg (27.0-31.0); Mean Corpuscular Volume 92.8 fL (78.0-98.0); Mean Platelet Volume 8.2 fL (7.4-10.4); Platelet Count 207 thou/uL (130-400); RBC Distribution Width 13.4 % (11.5-14.5); Red Blood Cell (RBC) Count 4.31 mill/uL (4.20-5.40); White Blood Cell (WBC) Count 13.1 thou/uL (4.8-10.8)
[2019-11-19 06:12] LABS: ALT (SGPT) 23 U/L (8-55); AST (SGOT) 23 U/L (5-34); Albumin 3.1 g/dL (3.4-4.8); Alkaline Phosphatase 78 U/L (40-110); Anion Gap 17 mmol/L (10-20); BUN (Urea Nitrogen) 55 mg/dL (9.8-20.1); Bilirubin, Total 0.4 mg/dL (0.2-1.2); Calc. Creatinine Clearance 37 mL/min (70-130); Calcium 8.8 mg/dL (7.8-10.44); Carbon Dioxide 20 mmol/L (23-31); Chloride 104 mmol/L (98-107); Estimated GFR-MDRD 43; Globulin 2.6 g/dL (2.4-3.5); Glucose 166 mg/dL (83-110); Potassium 4.5 mmol/L (3.5-5.1); Protein, Total 5.7 g/dL (6.0-8.3); Sodium 136 mmol/L (136-145)
[2019-11-19] MEDS: Apixaban 2.5 MG TAB PO SCH ×2 (07:59→20:50)
[2019-11-19] MEDS: Montelukast Sodium 10 mg Tablet PO SCH (07:59)
--- NOTE | 2019-11-19 09:58 | PRG ---
DATE OF SERVICE: 11/19/2019 SUBJECTIVE: Moraima Miller is an 84-year-old female, remains in the hospital. OBJECTIVE: VITAL SIGNS: Temperature 98, pulse 90, respirations 22. Saturations are 90% on 60 flow rate, 70% FiO2. Blood pressure 150/92. CHEST: Decreased breath sounds. No wheezing. No crackles. CARDIAC: Normal S1 and S2. No gallops. ABDOMEN: No masses. DIAGNOSTIC STUDIES: X-ray taken yesterday looked stable. Creatinine 1.43. IMPRESSION AND PLAN: Respiratory failure, shelton positive pneumonia, acute respiratory distress syndrome. Continue high-dose steroids, supportive care. We will follow. Job ID: [id number]
--- NOTE | 2019-11-19 11:23 | PDOC.FM ---
- Subjective Subjective: Patient states that she feels a little better this morning. She was able to get up and walk around the room yesterday. Also witnessed getting up to use bedside commode and not having any increased work of breathing with these exertions. HFNC set at 60L and 75% FiO2, unable to tolerate wean yesterday. - Objective Vital Signs & Weight: Vital Signs (12 hours) Temp Pulse Resp BP Pulse Ox 11/19/19 08:23 98.7 F 99 22 H 159/92 H 96 11/19/19 08:00 96 11/19/19 05:00 98.6 F 88 22 H 162/93 H 95 11/19/19 00:27 98.5 F 71 22 H 156/91 H 98 Weight Weight 77.292 kg I&O: 11/18/19 11/19/19 11/20/19 06:59 06:59 06:59 Intake Total 2079 750 Output Total 700 Balance 2079 50 Result Diagrams: 11/19/19 05:11 11/19/19 05:11 Phys Exam - Physical Examination Constitutional: NAD HEENT: moist MMs, sclera anicteric Neck: supple, full ROM Respiratory: clear to auscultation bilateral Cardiovascular: RRR, no significant murmur Gastrointestinal: soft, no distention Musculoskeletal: no edema, pulses present Neurological: normal sensation, moves all 4 limbs Psychiatric: normal affect, A&O x 3 Skin: no rash, normal turgor Dx/Plan (1) COVID-19 virus detected Code(s): U07.1 - COVID-19 Status: Acute (2) Acute kidney injury superimposed on CKD Code(s): N17.9 - ACUTE KIDNEY FAILURE, UNSPECIFIED; N18.9 - CHRONIC KIDNEY DISEASE, UNSPECIFIED Status: Acute (3) COPD with exacerbation Code(s): J44.1 - CHRONIC OBSTRUCTIVE PULMONARY DISEASE W (ACUTE) EXACERBATION Status: Acute (4) HTN (hypertension) Code(s): I10 - ESSENTIAL (PRIMARY) HYPERTENSION Status: Chronic Qualifiers: Hypertension type: essential hypertension Qualified Code(s): I10 - Essential (primary) hypertension - Plan Plan: Patient is a 84 yo female who presents with respiratory distress is found to have COVID 19: #COVID-19 PNA -COV+ test on 11/12, day 10 of symptoms -monitor inflammatory markers -DDimer 3.75 > 19.5 > greater than 20 -Ferritin 1495 > 1015 > 1005 > 807 -Procal 0.22 > 0.16 > 0.12 -Dexamethasone stopped on 11/17 and transitioned to IV Methylprednisolon q6h per Pulm -continue Eliquis -Convalescent plasma - 1 unit on 11/12 -Remdesivir treatment x5d, completed on 11/16 -Azithromycin x 5d, completed on 11/16 -HFNC--has been requiring 50-60L high flow since 11/14, current FiO2 at 70-75% -will need to arrange for home O2 when able to come off HFNC #COPD exacerbation, mild -steroids, rocephin & azithromycin -Albuterol MDI #DIMA on CKD, hx of left nephrectomy - improved - Cr stable, monitor - renal dosing meds #HTN -Stable, continue home meds #Hx of UTI -Treated on at Dr. Elmore's office -Didn't complete cipro regimen, but asx and urine not c/w with UTI -Getting rocephin for COPD exacerbation, d/c cipro Diet: HH VTE: Eliquis Code: full pcp: kristi Dispo: Admitted to inpatient on medical unit. Continue to monitor respiratory status. Anticipate discharge in >48 hours. Addendum - Attending - Attending Attestation Date/Time: 11/19/19 9114 I personally evaluated the patient and discussed the management with Dr. Thompson. I agree with the History, Examination, Assessment and Plan documented above with any addition or exceptions noted below.
[2019-11-20] MEDS: cefTRIAXone\\ROCEPHIN 1 GM in Sodium Chloride 0.9% 100 ML IVPB SCH (00:15)
[2019-11-20] MEDS: methylPREDNISolone Sod Succ 40 MG VIAL IVP SCH ×5 (00:15→23:28)
[2019-11-20] MEDS: Albuterol 200 PUFF (6.7GM INHALER) INH SCH ×6 (00:16→20:40)
[2019-11-20] MEDS: Mometasone 200 MCG/Formoterol 5 MCG 120 PUFF INHALER INH SCH ×2 (05:13→20:40)
[2019-11-20 06:14] LABS: ALT (SGPT) 24 U/L (8-55); AST (SGOT) 22 U/L (5-34); Albumin 3.2 g/dL (3.4-4.8); Alkaline Phosphatase 78 U/L (40-110); Anion Gap 18 mmol/L (10-20); BUN (Urea Nitrogen) 58 mg/dL (9.8-20.1); Bilirubin, Total 0.4 mg/dL (0.2-1.2); Calc. Creatinine Clearance 38 mL/min (70-130); Calcium 9.1 mg/dL (7.8-10.44); Carbon Dioxide 20 mmol/L (23-31); Chloride 104 mmol/L (98-107); Estimated GFR-MDRD 44; Globulin 2.6 g/dL (2.4-3.5); Glucose 139 mg/dL (83-110); Potassium 4.2 mmol/L (3.5-5.1); Protein, Total 5.8 g/dL (6.0-8.3); Sodium 138 mmol/L (136-145)
[2019-11-20 07:12] LABS: Band 1 % (5-11); Hemoglobin 12.8 g/dL (12.0-16.0); Lymphocytes 7 % (21-51); MDiff Complete? YES; Mean Corpuscular HGB CONC 30.6 g/dL (32.0-36.0); Mean Corpuscular Hemoglobin 28.5 pg (27.0-31.0); Mean Corpuscular Volume 92.9 fL (78.0-98.0); Mean Platelet Volume 8.4 fL (7.4-10.4); Monocytes 3 % (0-10); Neutrophil 89 % (42-75); Platelet Count 228 thou/uL (130-400); Platelet Morphology Comment Appears Adequate; Polychromasia SLIGHT = 2-3 cells (100X) (0-2/hpf); RBC Distribution Width 13.4 % (11.5-14.5); Red Blood Cell (RBC) Count 4.51 mill/uL (4.20-5.40); Schistocytes SLIGHT = 2-5 cells (100X) (0-1/hpf); White Blood Cell (WBC) Count 14.2 thou/uL (4.8-10.8)
[2019-11-20] MEDS: Apixaban 2.5 MG TAB PO SCH ×2 (08:35→20:30)
[2019-11-20] MEDS: Montelukast Sodium 10 mg Tablet PO SCH (08:35)
--- NOTE | 2019-11-20 09:35 | PRG ---
DATE OF SERVICE: 11/20/2019 SUBJECTIVE: This morning, remains on high-flow 40%. OBJECTIVE: VITAL SIGNS: Temperature 98, pulse 71, blood pressure 168/98. CHEST: No wheezing. No crackles. CARDIAC: Normal S1, S2 ASSESSMENT AND PLAN: Chronic renal failure, shelton positive pneumonia, respiratory failure. Continue high-dose steroids, p.o. doxycycline, supportive care. Once able to get her down to low-flow nasal O2, she can be discharged home. Job ID: [id number]
--- NOTE | 2019-11-20 09:50 | PDOC.FM ---
- Subjective Subjective: Patient says she feels tired this morning, did not sleep well last night. Says she wants to try to sit up in her bedside chair later today. Denies any pain complaints. Says breathing feels about the same as yesterday. Still on HFNC. - Objective MAR Reviewed: Yes Vital Signs & Weight: Vital Signs (12 hours) Temp Pulse Resp BP BP Pulse Ox 11/20/19 08:00 98.1 F 89 22 H 163/92 H 98 11/20/19 05:55 98.6 F 71 20 168/98 H 98 11/20/19 02:40 98.6 F 71 20 162/92 H 95 11/19/19 23:09 98.2 F 97 22 H 158/96 H 92 L Weight Weight 77.292 kg I&O: 11/19/19 11/20/19 11/21/19 06:59 06:59 06:59 Intake Total 750 500 Output Total 700 Balance 50 500 Result Diagrams: 11/20/19 05:19 11/20/19 05:19 Phys Exam - Physical Examination Constitutional: NAD HEENT: moist MMs, sclera anicteric Neck: supple, full ROM Respiratory: clear to auscultation bilateral Cardiovascular: RRR, no significant murmur Gastrointestinal: soft, non-tender, no distention Musculoskeletal: no edema, pulses present Neurological: normal sensation, moves all 4 limbs Psychiatric: normal affect, A&O x 3 Skin: no rash, normal turgor Dx/Plan (1) COVID-19 virus detected Code(s): U07.1 - COVID-19 Status: Acute (2) Acute kidney injury superimposed on CKD Code(s): N17.9 - ACUTE KIDNEY FAILURE, UNSPECIFIED; N18.9 - CHRONIC KIDNEY DISEASE, UNSPECIFIED Status: Acute (3) COPD with exacerbation Code(s): J44.1 - CHRONIC OBSTRUCTIVE PULMONARY DISEASE W (ACUTE) EXACERBATION Status: Acute (4) HTN (hypertension) Code(s): I10 - ESSENTIAL (PRIMARY) HYPERTENSION Status: Chronic Qualifiers: Hypertension type: essential hypertension Qualified Code(s): I10 - Essential (primary) hypertension - Plan Plan: Patient is a 84 yo female who presents with respiratory distress is found to have COVID 19: #COVID-19 PNA -COV+ test on 11/12 (day 8 since test), day 11 of symptoms -monitor inflammatory markers -DDimer 3.75 > 19.5 > greater than 20 -Ferritin 1495 > 1015 > 1005 > 807 > 892 -Procal 0.22 > 0.16 > 0.12 -Dexamethasone stopped on 11/17 and transitioned to IV Methylprednisolone q6h per Pulm -continue Eliquis -Convalescent plasma - 1 unit on 11/12 -Remdesivir treatment x5d, completed on 11/16 -Azithromycin x 5d, completed on 11/16 -HFNC--has been requiring 50-60L high flow since 11/14, current FiO2 at 70-75% -will need to arrange for home O2 when able to come off HFNC -start 7 day course of Doxycyline (11/19-11/26) #COPD exacerbation, mild -steroids -Rocephin 11/12-11/19 -Azithromycin 11/12-11/16 -Albuterol MDI #DIMA on CKD, hx of left nephrectomy - improved - Cr stable, monitor - renal dosing meds #HTN -Stable, continue home meds #Hx of UTI -Treated on at Dr. Elmore's office -Didn't complete cipro regimen, but asx and urine not c/w with UTI Diet: HH VTE: Eliquis Code: full pcp: kristi Dispo: Admitted to inpatient on medical unit. Continue to monitor respiratory status. Anticipate discharge in >48 hours. Addendum - Attending - Attending Attestation Date/Time: 11/20/19 1303 I personally evaluated the patient and discussed the management with Dr. Thompson. I agree with the History, Examination, Assessment and Plan documented above with any addition or exceptions noted below. I avhe asked the nurse to arrnage titration of HFNC as patietn is sating 100% on current setting of 60L/75FIO2
[2019-11-20] MEDS: Benzonatate 100 MG CAP PO PRN ×2 (12:40→20:45)
[2019-11-20] MEDS: Doxycycline 100 MG CAP PO SCH (20:30)
[2019-11-21] MEDS: Albuterol 200 PUFF (6.7GM INHALER) INH SCH ×6 (01:31→20:55)
[2019-11-21] MEDS: methylPREDNISolone Sod Succ 40 MG VIAL IVP SCH ×3 (06:05→17:32)
[2019-11-21] MEDS: Mometasone 200 MCG/Formoterol 5 MCG 120 PUFF INHALER INH SCH ×2 (06:08→17:35)
[2019-11-21 06:42] LABS: Bilirubin, Total 0.5 mg/dL (0.2-1.2); Calcium 8.9 mg/dL (7.8-10.44); Chloride 105 mmol/L (98-107); Potassium 3.9 mmol/L (3.5-5.1); Sodium 138 mmol/L (136-145)
[2019-11-21 06:44] LABS: Band 17 % (5-11); Hemoglobin 12.8 g/dL (12.0-16.0); Lymphocytes 6 % (21-51); MDiff Complete? YES; Mean Corpuscular HGB CONC 31.8 g/dL (32.0-36.0); Mean Corpuscular Hemoglobin 29.4 pg (27.0-31.0); Mean Corpuscular Volume 92.4 fL (78.0-98.0); Mean Platelet Volume 8.7 fL (7.4-10.4); Metamyelocyte 1 % (0-0); Monocytes 2 % (0-10); Neutrophil 74 % (42-75); Platelet Count 194 thou/uL (130-400); Platelet Morphology Comment Appears Adequate; RBC Distribution Width 13.3 % (11.5-14.5); Red Blood Cell (RBC) Count 4.35 mill/uL (4.20-5.40); White Blood Cell (WBC) Count 11.8 thou/uL (4.8-10.8)
[2019-11-21 06:51] LABS: ALT (SGPT) 24 U/L (8-55); AST (SGOT) 20 U/L (5-34); Albumin 2.9 g/dL (3.4-4.8); Alkaline Phosphatase 72 U/L (40-110); BUN (Urea Nitrogen) 56 mg/dL (9.8-20.1); Calc. Creatinine Clearance 41 mL/min (70-130); Carbon Dioxide 17 mmol/L (23-31); Estimated GFR-MDRD 48; Globulin 2.7 g/dL (2.4-3.5); Glucose 157 mg/dL (83-110); Protein, Total 5.6 g/dL (6.0-8.3)
[2019-11-21 06:53] LABS: Anion Gap 20 mmol/L (10-20)
--- NOTE | 2019-11-21 08:28 | PDOC.FM ---
- Subjective Subjective: Patient awake, alert, sitting up in bed this morning. Her bedside HFNC machine shows settings of rate 60L with FiO2 55%. She complains of her nose feeling dry and bleeding some. RT and Nursing staff notified that machine shows it is out of water. Overall patient feels like breathing is about the same as yesterday. - Objective MAR Reviewed: Yes Vital Signs & Weight: Vital Signs (12 hours) Temp Pulse Resp BP Pulse Ox 11/21/19 07:28 91 L 11/21/19 06:08 16 11/20/19 20:45 98.3 F 90 20 159/92 H 95 11/20/19 20:40 74 18 95 Weight Weight 77.292 kg I&O: 11/20/19 11/21/19 11/22/19 06:59 06:59 06:59 Intake Total 500 120 Balance 500 120 Result Diagrams: 11/21/19 06:07 11/21/19 06:07 Phys Exam - Physical Examination Constitutional: NAD HEENT: moist MMs, sclera anicteric Neck: supple, full ROM Respiratory: clear to auscultation bilateral Cardiovascular: RRR, no significant murmur Gastrointestinal: soft, non-tender, no distention Musculoskeletal: no edema, pulses present Neurological: normal sensation, moves all 4 limbs Psychiatric: normal affect, A&O x 3 Skin: no rash Dx/Plan (1) COVID-19 virus detected Code(s): U07.1 - COVID-19 Status: Acute (2) Acute kidney injury superimposed on CKD Code(s): N17.9 - ACUTE KIDNEY FAILURE, UNSPECIFIED; N18.9 - CHRONIC KIDNEY D ISEASE, UNSPECIFIED Status: Acute (3) COPD with exacerbation Code(s): J44.1 - CHRONIC OBSTRUCTIVE PULMONARY DISEASE W (ACUTE) EXACERBATION Status: Acute (4) HTN (hypertension) Code(s): I10 - ESSENTIAL (PRIMARY) HYPERTENSION Status: Chronic Qualifiers: Hypertension type: essential hypertension Qualified Code(s): I10 - Essential (primary) hypertension - Plan Plan: Patient is a 84 yo female who presents with respiratory distress is found to have COVID 19: #COVID-19 PNA -COV+ test on 11/12 (day 9 since test), day 12 of symptoms -monitor inflammatory markers -DDimer 3.75 > 19.5 > greater than 20 -Ferritin 1495 > 1015 > 1005 > 807 > 892 > 932 -Procal 0.22 > 0.16 > 0.12 -Dexamethasone stopped on 11/17 and transitioned to IV Methylprednisolone q6h per Pulm -continue Eliquis -Convalescent plasma - 1 unit on 11/12 -Remdesivir treatment x5d, completed on 11/16 -Azithromycin x 5d, completed on 11/16 -HFNC--has been requiring since 11/14, current FiO2 at 55-60% -will need to arrange for home O2 when able to come off HFNC -start 7 day course of Doxycyline (11/19-11/26) -will start [place] Nasal [place] TID to assist with nose dryness and irritation likely from HFNC use #COPD exacerbation, mild -steroids -Rocephin 11/12-11/19 -Azithromycin 11/12-11/16 -Albuterol MDI #DIMA on CKD, hx of left nephrectomy - improved - Cr stable, monitor - renal dosing meds #HTN -Stable, continue home meds #Hx of UTI -Treated on at Dr. Elmore's office -Didn't complete cipro regimen, but asx and urine not c/w with UTI Diet: HH VTE: Eliquis Code: full pcp: kristi Dispo: Admitted to inpatient on medical unit. Continue to monitor respiratory status. Anticipate discharge in >48 hours. Addendum - Attending - Attending Attestation Date/Time: 11/21/19 1225 I personally evaluated the patient and discussed the management with Dr. Thompson. I agree with the History, Examination, Assessment and Plan documented above with any addition or exceptions noted below. Worthy generally appears arvind and her HFNC requirements have been able to be reduced which is a hopeful sign.
[2019-11-21] MEDS: Montelukast Sodium 10 mg Tablet PO SCH (08:40)
[2019-11-21] MEDS: Apixaban 2.5 MG TAB PO SCH ×2 (08:40→20:55)
[2019-11-21] MEDS: Sodium Chloride 0.65% Nasal 44 ML BOT EA NARE SCH ×3 (08:49→20:56)
[2019-11-21] MEDS: Doxycycline 100 MG CAP PO SCH ×2 (08:49→20:55)
--- NOTE | 2019-11-21 09:37 | PRG ---
DATE OF SERVICE: 11/21/2019 SUBJECTIVE: An 84-year-old female, remains in the medical floor. OBJECTIVE: VITAL SIGNS: Saturating on 91% on high-flow rate 55, 70% FiO2; ; temperature 98; blood pressure 130/80; pulse 80; respiratory rate 18. CHEST: No wheezing. No crackles. CARDIAC: Normal S1 and S2. No gallops. ABDOMEN: No masses. LABORATORY DATA: Creatinine 1.28; elevated ferritin level, still elevated at 932. ASSESSMENT: Cedeño-positive pneumonia; respiratory failure, still requiring high-flow oxygen. PLAN: Continue high-dose steroids. Continue supportive care. Continue inhaled steroids. Prognosis remains guarded. We will follow. Job ID: [id number]
[2019-11-22] MEDS: methylPREDNISolone Sod Succ 40 MG VIAL IVP SCH ×5 (00:35→23:00)
[2019-11-22] MEDS: Albuterol 200 PUFF (6.7GM INHALER) INH SCH ×6 (00:36→21:15)
[2019-11-22 05:28] LABS: #Lymphocytes 0.3 thou/uL (1.20-3.40); #Monocytes 0.2 thou/uL (0.11-0.59); #Neutrophils 10.6 thou/uL (1.40-6.50); %Lymphocytes 2.3 % (21.0-51.0); %Monocytes 1.7 % (0.0-10.0); %Neutrophils 95.9 % (42.0-75.0); Hemoglobin 13.1 g/dL (12.0-16.0); Mean Corpuscular Hemoglobin 30.1 pg (27.0-31.0); Mean Platelet Volume 7.9 fL (7.4-10.4); Platelet Count 206 thou/uL (130-400); RBC Distribution Width 13.4 % (11.5-14.5); Red Blood Cell (RBC) Count 4.34 mill/uL (4.20-5.40); White Blood Cell (WBC) Count 11.1 thou/uL (4.8-10.8)
[2019-11-22 05:48] LABS: ALT (SGPT) 25 U/L (8-55); AST (SGOT) 17 U/L (5-34); Albumin 3.1 g/dL (3.4-4.8); Alkaline Phosphatase 73 U/L (40-110); Anion Gap 16 mmol/L (10-20); BUN (Urea Nitrogen) 65 mg/dL (9.8-20.1); Bilirubin, Total 0.6 mg/dL (0.2-1.2); Calc. Creatinine Clearance 40 mL/min (70-130); Calcium 9.1 mg/dL (7.8-10.44); Carbon Dioxide 22 mmol/L (23-31); Chloride 105 mmol/L (98-107); Estimated GFR-MDRD 47; Globulin 2.5 g/dL (2.4-3.5); Glucose 164 mg/dL (83-110); Potassium 3.8 mmol/L (3.5-5.1); Protein, Total 5.6 g/dL (6.0-8.3); Sodium 139 mmol/L (136-145)
[2019-11-22] MEDS: Mometasone 200 MCG/Formoterol 5 MCG 120 PUFF INHALER INH SCH ×2 (06:28→17:55)
--- NOTE | 2019-11-22 08:01 | PDOC.FM ---
- Subjective Subjective: Patient awake, alert, sitting up at side of bed this morning. Her bedside HFNC machine shows settings of rate 55L with FiO2 70%. She states her nose irritation has improved since using the nasal saline, it was left at bedside for her prn use. RT has been attempting to slowly wean patient down on HFNC. Overall patient feels like breathing is about the same as yesterday. Denies any other complaints. - Objective MAR Reviewed: Yes Vital Signs & Weight: Vital Signs (12 hours) Temp Pulse Resp BP BP Pulse Ox 11/22/19 06:28 18 11/22/19 04:00 98.0 F 76 18 164/96 H 100 11/22/19 00:00 98.3 F 83 18 150/96 H 100 11/21/19 20:00 98.4 F 109 H 20 172/101 H 97 Weight Admit Weight 77.292 kg Weight 77.292 kg I&O: 11/21/19 11/22/19 11/23/19 06:59 06:59 06:59 Intake Total 120 Balance 120 Result Diagrams: 11/22/19 05:14 11/22/19 05:14 Phys Exam - Physical Examination Constitutional: NAD HEENT: moist MMs Neck: no JVD, supple, full ROM Respiratory: no wheezing, clear to auscultation bilateral Cardiovascular: RRR, no significant murmur Gastrointestinal: soft, no distention Musculoskeletal: no edema, pulses present Neurological: normal sensation, moves all 4 limbs Psychiatric: normal affect, A&O x 3 Skin: no rash Dx/Plan (1) COVID-19 virus detected Code(s): U07.1 - COVID-19 Status: Acute (2) Acute kidney injury superimposed on CKD Code(s): N17.9 - ACUTE KIDNEY FAILURE, UNSPECIFIED; N18.9 - CHRONIC KIDNEY DISEA SE, UNSPECIFIED Status: Acute (3) COPD with exacerbation Code(s): J44.1 - CHRONIC OBSTRUCTIVE PULMONARY DISEASE W (ACUTE) EXACERBATION Status: Acute (4) HTN (hypertension) Code(s): I10 - ESSENTIAL (PRIMARY) HYPERTENSION Status: Chronic Qualifiers: Hypertension type: essential hypertension Qualified Code(s): I10 - Essential (primary) hypertension - Plan Plan: Patient is a 84 yo female who presents with respiratory distress is found to have COVID 19: #COVID-19 PNA -COV+ test on 11/12 (day 9 since test), day 12 of symptoms -monitor inflammatory markers -DDimer 3.75 > 19.5 > greater than 20 -Ferritin 1495 > 1015 > 1005 > 807 > 892 > 932 > 852 -Procal 0.22 > 0.16 > 0.12 -Dexamethasone stopped on 11/17 and transitioned to IV Methylprednisolone q6h per Pulm -continue Eliquis -Convalescent plasma - 1 unit on 11/12 -Remdesivir treatment x5d, completed on 11/16 -Azithromycin x 5d, completed on 11/16 -HFNC--has been requiring since 11/14, current FiO2 at 70% -will need to arrange for home O2 when able to come off HFNC -start 7 day course of Doxycyline (11/19-11/26) -[place] Nasal [place] TID to assist with nose dryness and irritation likely from HFNC use #COPD exacerbation, mild -steroids -Rocephin 11/12-11/19 -Azithromycin 11/12-11/16 -Albuterol MDI #DIMA on CKD, hx of left nephrectomy - improved - Cr stable, monitor - renal dosing meds #HTN -Stable, continue home meds #Hx of UTI -Treated on at Dr. Elmore's office -Didn't complete cipro regimen, but asx and urine not c/w with UTI Social: CM consulted for discharge planning. Patient previously had home health company after last admission but cannot remember who. Diet: HH VTE: Eliquis Code: full pcp: kristi Dispo: Admitted to inpatient on medical unit. Continue to monitor respiratory status. Anticipate discharge in >48 hours. Addendum - Attending - Attending Attestation Date/Time: 11/22/19 1210 I personally evaluated the patient and discussed the management with Dr. Thompson. I agree with the History, Examination, Assessment and Plan documented above with any addition or exceptions noted below.
[2019-11-22] MEDS: Apixaban 2.5 MG TAB PO SCH ×2 (08:19→21:15)
[2019-11-22] MEDS: Doxycycline 100 MG CAP PO SCH ×2 (08:19→21:15)
[2019-11-22] MEDS: Sodium Chloride 0.65% Nasal 44 ML BOT EA NARE SCH ×3 (08:20→21:16)
[2019-11-22] MEDS: Montelukast Sodium 10 mg Tablet PO SCH (08:20)
--- NOTE | 2019-11-22 09:01 | PRG ---
DATE OF SERVICE: 11/22/2019 OBJECTIVE: GENERAL: Moraima Miller this morning was awake, alert, responsive. VITAL SIGNS: Temperature 98, pulse 76, respiratory rate 18. She sats 100% on high-flow 70%, rate of 55, blood pressure 164/96. CHEST: No wheezing. No crackles. CARDIAC: Normal S1, S2. No gallops. ABDOMEN: No masses. LABORATORY DATA: Her inflammatory markers are still elevated. IMPRESSION: Cedeño-positive pneumonia, respiratory failure, underlying chronic obstructive pulmonary disease. Once we are able to get her down to low-flow O2, her steroids can be switched over to p.o. prednisone, otherwise continue supportive care. We will follow. Job ID: [id number]
--- NOTE | 2019-11-22 13:05 | RAD ---
EXAM: Two views chest PROVIDED CLINICAL HISTORY: Chest pain and shortness of breath. Follow-up evaluation. COMPARISON: 11/18/2019 FINDINGS: Cardiac silhouette and pulmonary vasculature are within normal limits. Again noted are interstitial and patchy groundglass opacities present in the lungs bilaterally greater at each lung base. No pleural fluid is seen. Symmetric biapical calcified pleural thickening is seen. Postoperative changes upper abdomen are again partially imaged. No other interval change. IMPRESSION: Bilateral interstitial and minimal patchy groundglass densities in a pattern which can be seen with v iral pneumonitis. Chest is overall similar to prior exam..
[2019-11-22 13:10] LABS: Troponin I 0.063 ng/mL (< 0.028)
[2019-11-22 16:14] LABS: Troponin I 0.063 ng/mL (< 0.028)
[2019-11-23] MEDS: Albuterol 200 PUFF (6.7GM INHALER) INH SCH ×6 (02:19→20:17)
[2019-11-23] MEDS: Mometasone 200 MCG/Formoterol 5 MCG 120 PUFF INHALER INH SCH ×2 (05:38→20:16)
[2019-11-23] MEDS: methylPREDNISolone Sod Succ 40 MG VIAL IVP SCH ×4 (05:38→23:02)
[2019-11-23 06:02] LABS: ALT (SGPT) 22 U/L (8-55); AST (SGOT) 15 U/L (5-34); Alkaline Phosphatase 67 U/L (40-110); Anion Gap 14 mmol/L (10-20); BUN (Urea Nitrogen) 61 mg/dL (9.8-20.1); Bilirubin, Total 0.6 mg/dL (0.2-1.2); Calc. Creatinine Clearance 46 mL/min (70-130); Calcium 9.4 mg/dL (7.8-10.44); Carbon Dioxide 26 mmol/L (23-31); Chloride 106 mmol/L (98-107); Estimated GFR-MDRD 55; Globulin 2.4 g/dL (2.4-3.5); Glucose 172 mg/dL (83-110); Potassium 3.8 mmol/L (3.5-5.1); Protein, Total 5.4 g/dL (6.0-8.3); Sodium 142 mmol/L (136-145)
[2019-11-23 06:09] LABS: Hemoglobin 12.9 g/dL (12.0-16.0); Mean Corpuscular HGB CONC 33.1 g/dL (32.0-36.0); Mean Corpuscular Hemoglobin 30.7 pg (27.0-31.0); Mean Corpuscular Volume 92.9 fL (78.0-98.0); Mean Platelet Volume 9.3 fL (7.4-10.4); Platelet Count 188 thou/uL (130-400); RBC Distribution Width 13.4 % (11.5-14.5); White Blood Cell (WBC) Count 15.3 thou/uL (4.8-10.8)
[2019-11-23 06:12] LABS: Band 3 % (5-11); MDiff Complete? YES; Monocytes 2 % (0-10); Neutrophil 95 % (42-75)
--- NOTE | 2019-11-23 06:48 | PDOC.FM ---
- Subjective Subjective: Patient feeling well this AM. NC out of her nose; denies SOB. Eating and drinking normally. on HFNC 55L on 73% FiO2 - Objective MAR Reviewed: Yes Vital Signs & Weight: Vital Signs (12 hours) Temp Pulse Resp BP Pulse Ox 11/23/19 04:00 97.9 F 86 18 158/90 H 100 11/22/19 23:18 97.7 F 86 20 153/86 H 100 11/22/19 20:00 98.3 F 99 20 158/93 H 100 Weight Admit Weight 77.292 kg Weight 77.292 kg I&O: 11/21/19 11/22/19 11/23/19 06:59 06:59 06:59 Intake Total 120 Balance 120 Result Diagrams: 11/23/19 05:14 11/23/19 05:14 Phys Exam - Physical Examination Constitutional: NAD Respiratory: no wheezing moderate inspiratory effort, Cardiovascular: RRR, no significant murmur Gastrointestinal: soft, no distention Musculoskeletal: no edema, pulses present Psychiatric: normal affect, A&O x 3 Dx/Plan - Plan Plan: Patient is a 84 yo female who presents with respiratory distress is found to have COVID 19: #COVID-19 PNA -COVID+ test on 11/12 (day 10 since test), day 13 of symptoms -monitor inflammatory markers -IV Methylprednisolone q6h per Pulm -continue Eliquis -s/p Convalescent plasma, Remdesivir, azithromycin - Doxycyline (11/19-11/26) -[place] Nasal [place] TID to assist with nose dryness and irritation likely from HFNC use #COPD exacerbation, mild -steroids -Albuterol MDI #DIMA on CKD, hx of left nephrectomy - improved - Cr stable, monitor - renal dosing meds #HTN -Stable, continue home meds #Hx of UTI -Treated on at Dr. Elmore's office -Did not complete regimen. Asymptomatic. Social: CM consulted for discharge planning. Patient previously had home health company after last admission but cannot remember who. Also needs PT/OT to p revent deconditioning. Recommend spiritual consult for emotional support. Diet: HH VTE: Eliquis Code: full pcp: kristi Dispo: Admitted to inpatient on medical unit. Continue to monitor respiratory status. Anticipate discharge in >48 hours. Addendum - Attending - Attending Attestation Date/Time: 11/23/19 0692 I personally evaluated the patient and discussed the management with Dr. Sheldon. I agree with the History, Examination, Assessment and Plan documented above with any addition or exceptions noted below. Worthy is feeling a little better today.
[2019-11-23] MEDS: Montelukast Sodium 10 mg Tablet PO SCH (08:27)
[2019-11-23] MEDS: Apixaban 2.5 MG TAB PO SCH ×2 (08:27→19:44)
[2019-11-23] MEDS: Doxycycline 100 MG CAP PO SCH ×2 (08:27→19:44)
[2019-11-23] MEDS: Sodium Chloride 0.65% Nasal 44 ML BOT EA NARE SCH ×3 (08:28→19:44)
--- NOTE | 2019-11-23 14:18 | PRG ---
DATE OF SERVICE: 11/23/2019 Moraima Miller remains afebrile, heart rate is in 80s, respiratory rate is in the teens, oximetry is 100%. O2 has been turned down from 55 L a minute at 30 L a minute. Sats are still on 100%. Blood pressure 158/90. We will continue same supportive care measures for now. She appears to be improving. Possibly, could be switched to nasal cannula oxygen in the near future. Job ID: [id number]
[2019-11-23] MEDS: Acetaminophen 325 MG TAB PO PRN (20:17)
[2019-11-24] MEDS: Albuterol 200 PUFF (6.7GM INHALER) INH SCH ×6 (02:00→19:31)
[2019-11-24] MEDS: methylPREDNISolone Sod Succ 40 MG VIAL IVP SCH ×4 (05:20→23:30)
[2019-11-24] MEDS: Mometasone 200 MCG/Formoterol 5 MCG 120 PUFF INHALER INH SCH ×2 (05:22→19:31)
[2019-11-24 06:21] LABS: ALT (SGPT) 24 U/L (8-55); AST (SGOT) 14 U/L (5-34); Alkaline Phosphatase 68 U/L (40-110); Anion Gap 16 mmol/L (10-20); BUN (Urea Nitrogen) 56 mg/dL (9.8-20.1); Bilirubin, Total 0.6 mg/dL (0.2-1.2); Calc. Creatinine Clearance 46 mL/min (70-130); Calcium 9.3 mg/dL (7.8-10.44); Carbon Dioxide 25 mmol/L (23-31); Chloride 104 mmol/L (98-107); Estimated GFR-MDRD 55; Globulin 2.3 g/dL (2.4-3.5); Glucose 169 mg/dL (83-110); Potassium 3.6 mmol/L (3.5-5.1); Protein, Total 5.3 g/dL (6.0-8.3); Sodium 141 mmol/L (136-145)
[2019-11-24 06:23] LABS: Band 10 % (5-11); Hemoglobin 13.2 g/dL (12.0-16.0); Lymphocytes 3 % (21-51); MDiff Complete? YES; Mean Corpuscular HGB CONC 32.5 g/dL (32.0-36.0); Mean Corpuscular Hemoglobin 30.2 pg (27.0-31.0); Mean Corpuscular Volume 92.7 fL (78.0-98.0); Mean Platelet Volume 8.8 fL (7.4-10.4); Neutrophil 87 % (42-75); Platelet Count 177 thou/uL (130-400); RBC Distribution Width 13.3 % (11.5-14.5); Red Blood Cell (RBC) Count 4.39 mill/uL (4.20-5.40); White Blood Cell (WBC) Count 17.3 thou/uL (4.8-10.8)
[2019-11-24] MEDS: Apixaban 2.5 MG TAB PO SCH ×2 (08:07→19:31)
[2019-11-24] MEDS: Sodium Chloride 0.65% Nasal 44 ML BOT EA NARE SCH ×3 (08:07→19:32)
[2019-11-24] MEDS: Montelukast Sodium 10 mg Tablet PO SCH (08:07)
[2019-11-24] MEDS: Doxycycline 100 MG CAP PO SCH ×2 (08:07→19:31)
--- NOTE | 2019-11-24 09:26 | PDOC.FM ---
- Subjective Subjective: Patient feeling about the same this AM. Noticed her ankles were swollen when working w/ PT yesterday. Apparently was weaned down to 30L HFNC, but overnight went back up to 55L. - Objective MAR Reviewed: Yes Vital Signs & Weight: Vital Signs (12 hours) Temp Pulse Resp BP Pulse Ox 11/24/19 05:15 97.7 F 90 20 160/96 H 99 11/23/19 23:55 98.3 F 77 20 160/90 H 99 Weight Admit Weight 77.292 kg Weight 77.292 kg I&O: 11/23/19 11/24/19 11/25/19 06:59 06:59 06:59 Intake Total 390 Output Total 425 Balance -35 Result Diagrams: 11/24/19 05:36 11/24/19 05:36 Phys Exam - Physical Examination Constitutional: NAD Respiratory: no wheezing unchanged Cardiovascular: RRR Musculoskeletal: edema present (nonpitting bilaterally at the ankles.) Psychiatric: normal affect, A&O x 3 Dx/Plan - Plan Plan: Patient is a 84 yo female who presents with respiratory distress is found to have COVID 19: #COVID-19 PNA -COVID+ test on 11/12 (day 11 since test), day 14 of symptoms -monitor inflammatory markers -IV Methylprednisolone q6h per Pulm -continue Eliquis -s/p Convalescent plasma, Remdesivir, azithromycin - Doxycyline (11/19-11/26) -[place] Nasal [place] TID to assist with nose dryness and irritation likely from HFNC use #COPD exacerbation, mild -steroids -Albuterol MDI Diet: HH VTE: Eliquis Code: full pcp: kristi Dispo: inpatient medical. Respiratory status stable on HFNC. Continue to wean as able. This will be a long process. Addendum - Attending - Attending Attestation Date/Time: 11/24/19 1102 I personally evaluated the patient and discussed the management with Dr. Sheldon. I agree with the History, Examination, Assessment and Plan documented above with any addition or exceptions noted below.
--- NOTE | 2019-11-24 13:09 | EKG ---
Test Reason : Blood Pressure : / mmHG Vent. Rate : 096 BPM Atrial Rate : 096 BPM P-R Int : 134 ms QRS Dur : 094 ms QT Int : 350 ms P-R-T Axes : 049 029 157 degrees QTc Int : 442 ms Sinus rhythm with Premature atrial complexes Abnormal ECG No previous ECGs available Confirmed by ROMAN PRINGLE MD ([id number]) on 11/24/2019 1:09:12 PM Referred By: JOHANA De Leonr Confirmed By:ROMAN PRINGLE MD
[2019-11-24] MEDS: Acetaminophen 325 MG TAB PO PRN (19:32)
[2019-11-25] MEDS: Albuterol 200 PUFF (6.7GM INHALER) INH SCH ×6 (00:15→21:40)
[2019-11-25] MEDS: Mometasone 200 MCG/Formoterol 5 MCG 120 PUFF INHALER INH SCH ×2 (05:21→18:11)
[2019-11-25] MEDS: methylPREDNISolone Sod Succ 40 MG VIAL IVP SCH ×3 (05:21→18:11)
[2019-11-25 06:02] LABS: Mean Corpuscular HGB CONC 31.4 g/dL (32.0-36.0); Mean Corpuscular Hemoglobin 29.7 pg (27.0-31.0); Mean Corpuscular Volume 94.6 fL (78.0-98.0); Mean Platelet Volume 8.7 fL (7.4-10.4); Platelet Count 174 thou/uL (130-400); Red Blood Cell (RBC) Count 4.38 mill/uL (4.20-5.40); White Blood Cell (WBC) Count 18.2 thou/uL (4.8-10.8)
[2019-11-25 06:13] LABS: ALT (SGPT) 24 U/L (8-55); AST (SGOT) 15 U/L (5-34); Alkaline Phosphatase 67 U/L (40-110); Anion Gap 16 mmol/L (10-20); BUN (Urea Nitrogen) 51 mg/dL (9.8-20.1); Bilirubin, Total 0.8 mg/dL (0.2-1.2); Calc. Creatinine Clearance 51 mL/min (70-130); Calcium 9.5 mg/dL (7.8-10.44); Carbon Dioxide 25 mmol/L (23-31); Chloride 104 mmol/L (98-107); Estimated GFR-MDRD 61; Globulin 2.4 g/dL (2.4-3.5); Glucose 161 mg/dL (83-110); Potassium 3.7 mmol/L (3.5-5.1); Protein, Total 5.4 g/dL (6.0-8.3); Sodium 141 mmol/L (136-145)
[2019-11-25 07:22] LABS: Band 3 % (5-11); Lymphocytes 6 % (21-51); MDiff Complete? YES; Monocytes 2 % (0-10); Neutrophil 89 % (42-75); Platelet Morphology Comment Appears Adequate; Polychromasia SLIGHT = 2-3 cells (100X) (0-2/hpf); Schistocytes SLIGHT = 2-5 cells (100X) (0-1/hpf)
[2019-11-25] MEDS: Montelukast Sodium 10 mg Tablet PO SCH (09:02)
[2019-11-25] MEDS: Apixaban 2.5 MG TAB PO SCH ×2 (09:03→21:39)
[2019-11-25] MEDS: Sodium Chloride 0.65% Nasal 44 ML BOT EA NARE SCH ×3 (09:03→21:40)
[2019-11-25] MEDS: Doxycycline 100 MG CAP PO SCH ×2 (09:07→21:39)
--- NOTE | 2019-11-25 09:46 | PRG ---
DATE OF SERVICE: 11/25/2019 SUBJECTIVE: Ms. Miller says she is feeling better. OBJECTIVE: VITAL SIGNS: She is afebrile. Heart rate 80, respiratory rate is 20, oximetry is 98% to 100% on high-flow. ASSESSMENT AND PLAN: Calculated the onset of her illness. She is probably between 17 and 18 days into this, so she should be out of her infectious stage twenty days, her isolation can be discontinued in theory, that could be discontinued now, but I would wait 20 days since the recommendations are isolate for 10 to 20 days. Her lungs and abdomen are unchanged. We will start trying to wean her high-flow. Job ID: [id number] MTDD
[2019-11-25] MEDS ORDERED: Amlodipine 5 MG TAB PO SCH (11:00)
--- NOTE | 2019-11-25 11:11 | PDOC.FM ---
- Subjective Subjective: Patient states she feels okay this morning. She has been able to intermittently tolerate wean down of HFNC to rate 30, FiO2 55% but for the most part has remained on settings of rate 55, FiO2 70-73%. This morning complains of blister that developed on right calf after used SCDs yesterday. Also says her daughter Arielle has had difficulty talking to anyone at the hospital and making arrangements due to power of transactional attorney issues. Patient says she previously completed MPOA paperwork but this is at her home and daughter lives out of town and cannot get the papers. Wants to know if complete MPOA paperwork again here, plans to name her 3 children. - Objective MAR Reviewed: Yes Vital Signs & Weight: Vital Signs (12 hours) Temp Pulse Resp BP Pulse Ox 11/25/19 08:00 100 11/25/19 04:00 98.4 F 80 20 160/95 H 98 11/24/19 23:30 98.1 F 80 18 161/90 H 100 Weight Admit Weight 77.292 kg Weight 77.292 kg I&O: 11/24/19 11/25/19 11/26/19 06:59 06:59 06:59 Intake Total 390 390 Output Total 425 550 Balance -35 -160 Result Diagrams: 11/25/19 05:26 11/25/19 05:26 Phys Exam - Physical Examination Constitutional: NAD HEENT: moist MMs Neck: no JVD, supple Respiratory: no wheezing, clear to auscultation bilateral Cardiovascular: RRR, no significant murmur Gastrointestinal: soft, non-tender, no distention Musculoskeletal: pulses present 1+ pitting edema to mid calf bilaterally Neurological: normal sensation, moves all 4 limbs Psychiatric: normal affect, A&O x 3 Skin: no rash Dx/Plan (1) COVID-19 virus detected Code(s): U07.1 - COVID-19 Status: Acute (2) Acute kidney injury superimposed on CKD Code(s): N17.9 - ACUTE KIDNEY FAILURE, UNSPECIFIED; N18.9 - CHRONIC KIDNEY DISEASE, UNSPECIFIED Status: Acute (3) COPD with exacerbation Code(s): J44.1 - CHRONIC OBSTRUCTIVE PULMONARY DISEASE W (ACUTE) EXACERBATION Status: Acute (4) HTN (hypertension) Code(s): I10 - ESSENTIAL (PRIMARY) HYPERTENSION Status: Chronic Qualifiers: Hypertension type: essential hypertension Qualified Code(s): I10 - Essential (primary) hypertension - Plan Plan: Patient is a 84 yo female who presents with respiratory distress is found to have COVID 19: #COVID-19 PNA -COV+ test on 11/12 (day 12 since test), day 15 of symptoms--Pulm wants to discontinue precautions after day 20 (11/30/2019) -monitor inflammatory markers -DDimer 3.75 > 19.5 > greater than 20--repeat today -Ferritin 1495 > 1015 > 1005 > 807 > 892 > 932 > 852 > 1180 > 1537 today -Procal 0.22 > 0.16 > 0.12 -CRP 7 > 1.12 > repeat today -Dexamethasone stopped on 11/17 and transitioned to IV Methylprednisolone q6h per Pulm -continue Eliquis -Convalescent plasma - 1 unit on 11/12 -Remdesivir treatment x5d, completed on 11/16 -Azithromycin x 5d, completed on 11/16 -HFNC--has been requiring since 11/14, current FiO2 at 70% with rate 55, continue to attempt to wean -will need to arrange for home O2 when able to come off HFNC -start 7 day course of Doxycyline (11/19-11/26) -[place] Nasal [place] TID to assist with nose dryness and irritation likely from HFNC use #COPD exacerbation, mild -steroids -Rocephin 11/12-11/19 -Azithromycin 11/12-11/16 -Albuterol MDI #DIMA on CKD, hx of left nephrectomy - improved - Cr stable, monitor - renal dosing meds #HTN -Stable, continue home meds Losartan-HCTZ BID -likely somewhat elevated due to continued steroid use and fluids -will start Amlodipine and continue to monitor #Hx of UTI -Treated on at Dr. Elmore's office -Didn't complete cipro regimen, but asx and urine not c/w with UTI Social: CM consulted for discharge planning. Patient previously had home health company after last admission but cannot remember who. Diet: HH VTE: Eliquis Code: full pcp: kristi Dispo: Admitted to inpatient on medical unit. Continue to monitor respiratory status. Anticipate discharge in >48 hours.
--- NOTE | 2019-11-25 13:43 | PRG ---
DATE OF SERVICE: 11/25/2019 Ms. Miller is being followed for COVID, DIMA, COPD, and hypertension. I have read the note of Dr. Dilcia Thompson and agreed with her assessment and plan. Job ID: [id number]
[2019-11-26] MEDS: Albuterol 200 PUFF (6.7GM INHALER) INH SCH ×7 (01:05→23:35)
[2019-11-26] MEDS: methylPREDNISolone Sod Succ 40 MG VIAL IVP SCH ×5 (01:05→23:20)
[2019-11-26 06:29] LABS: ALT (SGPT) 25 U/L (8-55); AST (SGOT) 14 U/L (5-34); Albumin 2.9 g/dL (3.4-4.8); Alkaline Phosphatase 71 U/L (40-110); Anion Gap 15 mmol/L (10-20); BUN (Urea Nitrogen) 52 mg/dL (9.8-20.1); Calc. Creatinine Clearance 52 mL/min (70-130); Calcium 9.6 mg/dL (7.8-10.44); Carbon Dioxide 25 mmol/L (23-31); Chloride 102 mmol/L (98-107); Estimated GFR-MDRD 63; Globulin 2.4 g/dL (2.4-3.5); Glucose 143 mg/dL (83-110); Potassium 3.8 mmol/L (3.5-5.1); Protein, Total 5.3 g/dL (6.0-8.3); Sodium 138 mmol/L (136-145)
[2019-11-26] MEDS: Mometasone 200 MCG/Formoterol 5 MCG 120 PUFF INHALER INH SCH ×2 (06:44→18:08)
[2019-11-26 07:11] LABS: Band 2 % (5-11); Hemoglobin 13.8 g/dL (12.0-16.0); Lymphocytes 4 % (21-51); MDiff Complete? YES; Mean Corpuscular HGB CONC 31.4 g/dL (32.0-36.0); Mean Corpuscular Hemoglobin 29.6 pg (27.0-31.0); Mean Corpuscular Volume 94.4 fL (78.0-98.0); Mean Platelet Volume 9.6 fL (7.4-10.4); Monocytes 1 % (0-10); Neutrophil 92 % (42-75); Ovalocytes SLIGHT = 2-5 cells (100X) (0-1/hpf); Platelet Count 165 thou/uL (130-400); Platelet Morphology Comment Appears Adequate; Polychromasia SLIGHT = 2-3 cells (100X) (0-2/hpf); RBC Distribution Width 13.1 % (11.5-14.5); Reactive Lymphocytes 1 % (0-10); Red Blood Cell (RBC) Count 4.65 mill/uL (4.20-5.40); Target Cells SLIGHT = 2-5 cells (100X) (0-1/hpf); White Blood Cell (WBC) Count 20.2 thou/uL (4.8-10.8)
[2019-11-26] MEDS: Amlodipine 5 MG TAB PO SCH (09:33)
[2019-11-26] MEDS: Montelukast Sodium 10 mg Tablet PO SCH (09:34)
[2019-11-26] MEDS: Apixaban 2.5 MG TAB PO SCH ×2 (09:34→20:42)
[2019-11-26] MEDS: Sodium Chloride 0.65% Nasal 44 ML BOT EA NARE SCH ×3 (09:35→20:42)
[2019-11-26] MEDS: Doxycycline 100 MG CAP PO SCH ×2 (09:37→20:42)
[2019-11-26] MEDS: Bisacodyl 5 MG TAB PO PRN (11:50)
--- NOTE | 2019-11-26 12:42 | PDOC.FM ---
- Subjective Subjective: Patient states she feels okay this morning. She has been able to tolerate wean down of HFNC to rate 55, FiO2 45%. Palliative care will attempt MPOA paperwork after comes off of precautions (on 11/30/2019). Spiritual care attempting to contact daughter. - Objective Vital Signs & Weight: Vital Signs (12 hours) Temp Pulse Resp BP BP Pulse Ox 11/26/19 12:00 97.6 F 101 H 20 146/94 H 97 11/26/19 09:33 96 11/26/19 08:00 92 L 11/26/19 07:26 98.2 F 96 22 H 148/89 H 92 L 11/26/19 07:13 92 L 11/26/19 06:44 91 20 93 L 11/26/19 00:49 92 L Weight Admit Weight 77.292 kg Weight 77.292 kg I&O: 11/25/19 11/26/19 11/27/19 06:59 06:59 06:59 Intake Total 390 Output Total 550 Balance -160 Result Diagrams: 11/26/19 05:52 11/26/19 05:52 Phys Exam - Physical Examination Constitutional: NAD HEENT: moist MMs, sclera anicteric Neck: no JVD, supple, full ROM Respiratory: clear to auscultation bilateral Cardiovascular: RRR Gastrointestinal: soft, non-tender Musculoskeletal: pulses present 1+ pitting edema in BLE Neurological: normal sensation, moves all 4 limbs Psychiatric: A&O x 3 Deviation from normal: flat affect Skin: no rash Dx/Plan (1) COVID-19 virus detected Code(s): U07.1 - COVID-19 Status: Acute (2) Acute kidney injury superimposed on CKD Code(s): N17.9 - ACUTE KIDNEY FAILURE, UNSPECIFIED; N18.9 - CHRONIC KIDNEY DISEASE, UNSPECIFIED Status: Acute (3) COPD with exacerbation Code(s): J44.1 - CHRONIC OBSTRUCTIVE PULMONARY DISEASE W (ACUTE) EXACERBATION Status: Acute (4) HTN (hypertension) Code(s): I10 - ESSENTIAL (PRIMARY) HYPERTENSION Status: Chronic Qualifiers: Hypertension type: essential hypertension Qualified Code(s): I10 - Essential (primary) hypertension - Plan Plan: Patient is a 84 yo female who presents with respiratory distress is found to have COVID 19: #COVID-19 PNA -COV+ test on 11/12 (day 13 since test), day 16 of symptoms--Pulm wants to discontinue precautions after day 20 (11/30/2019) -monitor inflammatory markers -DDimer 3.75 > 19.5 > greater than 20--repeat today -Ferritin 1495 > 1015 > 1005 > 807 > 892 > 932 > 852 > 1180 > 1537 today -Procal 0.22 > 0.16 > 0.12 -CRP 7 > 1.12 > repeat today -Dexamethasone stopped on 11/17 and transitioned to IV Methylprednisolone q6h per Pulm -continue Eliquis -Convalescent plasma - 1 unit on 11/12 -Remdesivir treatment x5d, completed on 11/16 -Azithromycin x 5d, completed on 11/16 -HFNC--has been requiring since 11/14, current FiO2 at 45% with rate 55, continue to attempt to wean -will need to arrange for home O2 when able to come off HFNC -start 7 day course of Doxycyline (11/19-11/26) -[place] Nasal [place] TID to assist with nose dryness and irritation likely from HFNC use #COPD exacerbation, mild -steroids -Rocephin 11/12-11/19 -Azithromycin 11/12-11/16 -Albuterol MDI #DIMA on CKD, hx of left nephrectomy - improved - Cr stable, monitor - renal dosing meds #HTN -Stable, continue home meds Losartan-HCTZ BID -likely somewhat elevated due to continued steroid use and fluids -will start Amlodipine and continue to monitor #Hx of UTI -Treated on at Dr. Elmore's office -Didn't complete cipro regimen, but asx and urine not c/w with UTI Social: CM consulted for discharge planning. Patient previously had home health company after last admission but cannot remember who. Diet: HH VTE: Eliquis Code: full pcp: kristi Dispo: Admitted to inpatient on medical unit. Continue to monitor respiratory status. Anticipate discharge in >48 hours.
--- NOTE | 2019-11-26 18:10 | PRG ---
DATE OF SERVICE: 11/26/2019 Moraima Miller remains afebrile. Heart rate is 101 respiratory rate is 20. FiO2 is down to 44%, blood pressure 146/94, oximetry is in the high 90s. She says she is feeling reasonably well. Reviewing her onset of illness, it seems likely that her symptoms started on 11/07, so she is 18 days into this. She probably can come off isolation precautions here in the next day or two. Her hemodynamics remained stable. Her lab work remained stable. She appears to be slowly improving. Continue supportive care. Agree with the resident's care plan. Job ID: [id number]
[2019-11-26] MEDS: Acetaminophen 325 MG TAB PO PRN (20:53)
--- NOTE | 2019-11-27 04:50 | PRG ---
DATE OF SERVICE: 11/26/2019 ADDENDUM: This is an addendum to the note of Dr. Dilcia Thompson. I have examined Arnaud Angela and agree with the assessment and plan of Dr. Dilcia Thompson. Job ID: [id number]
[2019-11-27] MEDS: Mometasone 200 MCG/Formoterol 5 MCG 120 PUFF INHALER INH SCH ×2 (06:20→17:55)
[2019-11-27] MEDS: Albuterol 200 PUFF (6.7GM INHALER) INH SCH ×5 (06:20→20:52)
[2019-11-27] MEDS: methylPREDNISolone Sod Succ 40 MG VIAL IVP SCH ×4 (06:20→23:35)
[2019-11-27 06:35] LABS: ALT (SGPT) 22 U/L (8-55); AST (SGOT) 14 U/L (5-34); Albumin 2.9 g/dL (3.4-4.8); Alkaline Phosphatase 71 U/L (40-110); Anion Gap 14 mmol/L (10-20); BUN (Urea Nitrogen) 56 mg/dL (9.8-20.1); Bilirubin, Total 0.9 mg/dL (0.2-1.2); Calc. Creatinine Clearance 50 mL/min (70-130); Calcium 9.6 mg/dL (7.8-10.44); Carbon Dioxide 27 mmol/L (23-31); Chloride 100 mmol/L (98-107); Estimated GFR-MDRD 61; Globulin 2.4 g/dL (2.4-3.5); Glucose 147 mg/dL (83-110); Potassium 3.9 mmol/L (3.5-5.1); Protein, Total 5.3 g/dL (6.0-8.3); Sodium 137 mmol/L (136-145)
[2019-11-27 06:43] LABS: Mean Corpuscular HGB CONC 31.8 g/dL (32.0-36.0); Mean Corpuscular Hemoglobin 29.7 pg (27.0-31.0); Mean Corpuscular Volume 93.3 fL (78.0-98.0); Mean Platelet Volume 9.4 fL (7.4-10.4); Platelet Count 164 thou/uL (130-400); Red Blood Cell (RBC) Count 4.71 mill/uL (4.20-5.40); White Blood Cell (WBC) Count 17.8 thou/uL (4.8-10.8)
[2019-11-27 06:48] LABS: Band 5 % (5-11); Lymphocytes 5 % (21-51); MDiff Complete? YES; Monocytes 1 % (0-10); Neutrophil 89 % (42-75)
[2019-11-27] MEDS: Apixaban 2.5 MG TAB PO SCH ×2 (08:07→20:52)
[2019-11-27] MEDS: Montelukast Sodium 10 mg Tablet PO SCH (08:07)
[2019-11-27] MEDS: Sodium Chloride 0.65% Nasal 44 ML BOT EA NARE SCH ×3 (08:08→20:53)
[2019-11-27] MEDS: Amlodipine 5 MG TAB PO SCH (08:15)
[2019-11-27] MEDS: Doxycycline 100 MG CAP PO SCH ×2 (08:19→20:52)
--- NOTE | 2019-11-27 09:48 | PDOC.FM ---
- Subjective Subjective: Patient states she feels okay this morning but tired, did not get much sleep overnight. She has been able to tolerate wean down of HFNC to rate 40, FiO2 40%. Palliative care will attempt MPOA paperwork later today. - Objective MAR Reviewed: Yes Vital Signs & Weight: Vital Signs (12 hours) Temp Pulse Resp BP BP Pulse Ox 11/27/19 08:15 92 157/99 H 11/27/19 08:00 98.1 F 94 18 157/99 H 92 L 11/27/19 06:20 94 L 11/27/19 00:00 98.1 F 92 20 148/91 H 98 Weight Admit Weight 77.292 kg Weight 77.292 kg I&O: 11/26/19 11/27/19 11/28/19 06:59 06:59 06:59 Intake Total 100 Output Total 400 Balance -300 Result Diagrams: 11/27/19 05:49 11/27/19 05:49 Phys Exam - Physical Examination Constitutional: NAD HEENT: moist MMs, sclera anicteric Neck: no JVD, supple clear, even respirations. no respiratory distress Gastrointestinal: soft, non-tender, no distention Musculoskeletal: pulses present 1+ nonpitting edema in BLE Neurological: normal sensation, moves all 4 limbs Psychiatric: A&O x 3 Deviation from normal: flat, depressed affect Skin: no rash, normal turgor Deviation from normal: blister to RLE Dx/Plan (1) COVID-19 virus detected Code(s): U07.1 - COVID-19 Status: Acute (2) Acute kidney injury superimposed on CKD Code(s): N17.9 - ACUTE KIDNEY FAILURE, UNSPECIFIED; N18.9 - CHRONIC KIDNEY DISEASE, UNSPECIFIED Status: Acute (3) COPD with exacerbation Code(s): J44.1 - CHRONIC OBSTRUCTIVE PULMONARY DISEASE W (ACUTE) EXACERBATION Status: Acute (4) HTN (hypertension) Code(s): I10 - ESSENTIAL (PRIMARY) HYPERTENSION Status: Chronic Qualifiers: Hypertension type: essential hypertension Qualified Code(s): I10 - Essential (primary) hypertension - Plan Plan: Patient is a 84 yo female who presents with respiratory distress is found to hav e COVID 19: #COVID-19 PNA -COV+ test on 11/12 (day 13 since test), day 16 of symptoms--Pulm wants to discontinue precautions after day 20 (11/30/2019) -monitor inflammatory markers -DDimer 3.75 > 19.5 > greater than 20 > 12 -Ferritin 1495 > 1015 > 1005 > 807 > 892 > 932 > 852 > 1180 > 1537 > 1275 -Procal 0.22 > 0.16 > 0.12 -CRP 7 > 1.12 > 0.5 -Dexamethasone stopped on 11/17 and transitioned to IV Methylprednisolone q6h per Pulm -continue Eliquis -Convalescent plasma - 1 unit on 11/12 -Remdesivir treatment x5d, completed on 11/16 -Azithromycin x 5d, completed on 11/16 -HFNC--has been requiring since 11/14, current FiO2 at 40% with rate 40L, continue to attempt to wean -will need to arrange for home O2 when able to come off HFNC -start 7 day course of Doxycyline (11/19-11/26) -[place] Nasal [place] TID to assist with nose dryness and irritation likely from HFNC use #COPD exacerbation, mild -steroids -Rocephin 11/12-11/19 -Azithromycin 11/12-11/16 -Albuterol MDI #DIMA on CKD, hx of left nephrectomy - improved - Cr stable, monitor - renal dosing meds #HTN -Stable, continue home meds Losartan-HCTZ BID -likely somewhat elevated due to continued steroid use and fluids -started Amlodipine 11/24, continue to monitor #Hx of UTI -Treated on at Dr. Elmore's office -Didn't complete cipro regimen, but asx and urine not c/w with UTI Social: CM consulted for discharge planning. Patient previously had home health company after last admission but cannot remember who. Palliative consulted to assist with completion of MPOA. Spiritual consult for patient and family em otional support. Diet: HH VTE: Eliquis Code: full pcp: kristi Dispo: Admitted to inpatient on medical unit. Continue to monitor respiratory status. Anticipate discharge in >48 hours.
--- NOTE | 2019-11-27 12:20 | PRG ---
DATE OF SERVICE: 11/27/2019 Ms. Miller is resting quietly in bed, in no distress. She will come off precautions by Monday or Monday. Job ID: [id number]
[2019-11-27] MEDS: Acetaminophen 325 MG TAB PO PRN (20:53)
[2019-11-28] MEDS: Albuterol 200 PUFF (6.7GM INHALER) INH SCH ×6 (01:47→20:54)
[2019-11-28] MEDS: Mometasone 200 MCG/Formoterol 5 MCG 120 PUFF INHALER INH SCH ×2 (05:19→17:52)
[2019-11-28] MEDS: methylPREDNISolone Sod Succ 40 MG VIAL IVP SCH ×4 (05:19→23:36)
[2019-11-28 05:51] LABS: #Lymphocytes 0.3 thou/uL (1.20-3.40); #Monocytes 0.4 thou/uL (0.11-0.59); #Neutrophils 17.9 thou/uL (1.40-6.50); %Eosinophils 0.1 % (0.0-10.0); %Lymphocytes 1.8 % (21.0-51.0); %Monocytes 2.3 % (0.0-10.0); %Neutrophils 95.9 % (42.0-75.0); Mean Corpuscular HGB CONC 30.8 g/dL (32.0-36.0); Mean Corpuscular Hemoglobin 28.9 pg (27.0-31.0); Mean Corpuscular Volume 93.8 fL (78.0-98.0); Mean Platelet Volume 9.2 fL (7.4-10.4); Platelet Count 154 thou/uL (130-400); RBC Distribution Width 13.1 % (11.5-14.5); Red Blood Cell (RBC) Count 4.84 mill/uL (4.20-5.40); White Blood Cell (WBC) Count 18.7 thou/uL (4.8-10.8)
[2019-11-28 05:59] LABS: ALT (SGPT) 20 U/L (8-55); AST (SGOT) 15 U/L (5-34); Albumin 2.8 g/dL (3.4-4.8); Alkaline Phosphatase 69 U/L (40-110); Anion Gap 16 mmol/L (10-20); BUN (Urea Nitrogen) 59 mg/dL (9.8-20.1); Bilirubin, Total 0.9 mg/dL (0.2-1.2); Calc. Creatinine Clearance 48 mL/min (70-130); Calcium 9.6 mg/dL (7.8-10.44); Carbon Dioxide 25 mmol/L (23-31); Chloride 104 mmol/L (98-107); Estimated GFR-MDRD 58; Globulin 2.7 g/dL (2.4-3.5); Glucose 160 mg/dL (83-110); Potassium 4.6 mmol/L (3.5-5.1); Protein, Total 5.5 g/dL (6.0-8.3); Sodium 140 mmol/L (136-145)
[2019-11-28] MEDS: Amlodipine 5 MG TAB PO SCH (08:05)
[2019-11-28] MEDS: Montelukast Sodium 10 mg Tablet PO SCH (08:05)
[2019-11-28] MEDS: Apixaban 2.5 MG TAB PO SCH ×2 (08:05→20:54)
[2019-11-28] MEDS: Sodium Chloride 0.65% Nasal 44 ML BOT EA NARE SCH ×4 (08:05→20:54)
--- NOTE | 2019-11-28 11:50 | PRG ---
DATE OF SERVICE: 11/28/2019 ADDENDUM: This is an addendum to the note of Dr. Dilcia Thompson. Although vastly improved, Ms. Miller is still requiring high-flow O2. I am certain that her COPD is contributing to her slow recovery from COVID. Job ID: [id number]
--- NOTE | 2019-11-28 13:05 | PDOC.FM ---
- Subjective Subjective: Patient states she feels okay this morning. She has been able to tolerate wean down of HFNC to rate 35, FiO2 38%. Palliative care will attempt MPOA paperwork on 11/30/2019. - Objective MAR Reviewed: Yes Vital Signs & Weight: Vital Signs (12 hours) Temp Pulse Resp BP Pulse Ox 11/28/19 11:41 98.5 F 99 20 131/84 94 L 11/28/19 08:09 92 L 11/28/19 08:05 92 11/28/19 08:00 98.3 F 99 20 143/89 H 91 L 11/28/19 05:30 98.1 F 92 20 148/92 H 97 Weight Admit Weight 77.292 kg Weight 77.292 kg I&O: 11/27/19 11/28/19 11/29/19 06:59 06:59 06:59 Intake Total 850 120 Output Total 1450 Balance -600 120 Result Diagrams: 11/28/19 05:24 11/28/19 05:24 Phys Exam - Physical Examination Constitutional: NAD HEENT: moist MMs Neck: no JVD, supple Respiratory: no wheezing, clear to auscultation bilateral Cardiovascular: RRR, no significant murmur Gastrointestinal: soft, no distention Musculoskeletal: pulses present 1+ non pitting edema in BLE Neurological: normal sensation, moves all 4 limbs Psychiatric: normal affect, A&O x 3 Skin: no rash, normal turgor Dx/Plan (1) COVID-19 virus detected Code(s): U07.1 - COVID-19 Status: Acute (2) Acute kidney injury superimposed on CKD Code(s): N17.9 - ACUTE KIDNEY FAILURE, UNSPECIFIED; N18.9 - CHRONIC KIDNEY DISEASE, UNSPECIFIED Status: Acute (3) COPD with exacerbation Code(s): J44.1 - CHRONIC OBSTRUCTIVE PULMONARY DISEASE W (ACUTE) EXACERBATION Status: Acute (4) HTN (hypertension) Code(s): I10 - ESSENTIAL (PRIMARY) HYPERTENSION Status: Chronic Qualifiers: Hypertension type: essential hypertension Qualified Code(s): I10 - Essential (primary) hypertension - Plan Plan: Patient is a 84 yo female who presents with respiratory distress is found to have COVID 19: #COVID-19 PNA -COV+ test on 11/12 (day 15 since test), day 18 of symptoms--Pulm wants to discontinue precautions after day 20 (would be 11/30/2019) -monitor inflammatory markers -DDimer 3.75 > 19.5 > greater than 20 > 12 -Ferritin 1495 > 1015 > 1005 > 807 > 892 > 932 > 852 > 1180 > 1537 > 1275 -Procal 0.22 > 0.16 > 0.12 -CRP 7 > 1.12 > 0.5 -Dexamethasone stopped on 11/17 and transitioned to IV Methylprednisolone q6h per Pulm -continue Eliquis -Convalescent plasma - 1 unit on 11/12 -Remdesivir treatment x5d, completed on 11/16 -Azithromycin x 5d, completed on 11/16 -HFNC--has been requiring since 11/14, current FiO2 at 38% with rate 35L, continue to attempt to wean -will need to arrange for home O2 when able to come off HFNC -start 7 day course of Doxycyline (11/19-11/26) -[place] Nasal [place] TID to assist with nose dryness and irritation likely from HFNC use #COPD exacerbation, mild -steroids -Rocephin 11/12-11/19 -Azithromycin 11/12-11/16 -Albuterol MDI #DIMA on CKD, hx of left nephrectomy - improved - Cr stable, monitor - renal dosing meds #HTN -Stable, continue home meds Losartan-HCTZ BID -likely somewhat elevated due to continued steroid use and fluids -started Amlodipine 11/24, continue to monitor #Hx of UTI -Treated on at Dr. Elmore's office -Didn't complete cipro regimen, but asx and urine not c/w with UTI Social: CM consulted for discharge planning. Patient previously had home health company after last admission but cannot remember who. Palliative consulted to assist with completion of MPOA. Spiritual consult for patient and family emotional support. Diet: HH VTE: Eliquis Code: full pcp: kristi Dispo: Admitted to inpatient on medical unit. Continue to monitor respiratory status. Anticipate discharge in >48 hours.
[2019-11-28] MEDS: Bisacodyl 10 MG SUPP PR PRN (13:25)
[2019-11-29] MEDS: Albuterol 200 PUFF (6.7GM INHALER) INH SCH ×6 (01:00→21:17)
[2019-11-29] MEDS: methylPREDNISolone Sod Succ 40 MG VIAL IVP SCH ×3 (05:14→17:53)
[2019-11-29 05:53] LABS: #Basophils 0.1 thou/uL (0.0-0.2); #Lymphocytes 0.3 thou/uL (1.20-3.40); #Monocytes 0.5 thou/uL (0.11-0.59); %Basophils 0.7 % (0.0-1.0); %Eosinophils 0.1 % (0.0-10.0); %Lymphocytes 1.7 % (21.0-51.0); %Monocytes 2.6 % (0.0-10.0); %Neutrophils 94.9 % (42.0-75.0); Hemoglobin 14.3 g/dL (12.0-16.0); Mean Corpuscular HGB CONC 31.5 g/dL (32.0-36.0); Mean Corpuscular Hemoglobin 29.6 pg (27.0-31.0); Mean Corpuscular Volume 94.2 fL (78.0-98.0); Mean Platelet Volume 9.4 fL (7.4-10.4); Platelet Count 161 thou/uL (130-400); RBC Distribution Width 13.2 % (11.5-14.5); Red Blood Cell (RBC) Count 4.83 mill/uL (4.20-5.40)
[2019-11-29 06:04] LABS: ALT (SGPT) 22 U/L (8-55); AST (SGOT) 13 U/L (5-34); Albumin 2.9 g/dL (3.4-4.8); Alkaline Phosphatase 69 U/L (40-110); Anion Gap 15 mmol/L (10-20); BUN (Urea Nitrogen) 62 mg/dL (9.8-20.1); Bilirubin, Total 0.9 mg/dL (0.2-1.2); Calc. Creatinine Clearance 51 mL/min (70-130); Calcium 9.7 mg/dL (7.8-10.44); Carbon Dioxide 25 mmol/L (23-31); Chloride 103 mmol/L (98-107); Estimated GFR-MDRD 61; Globulin 2.3 g/dL (2.4-3.5); Glucose 158 mg/dL (83-110); Potassium 4.1 mmol/L (3.5-5.1); Protein, Total 5.2 g/dL (6.0-8.3); Sodium 139 mmol/L (136-145)
[2019-11-29] MEDS: Mometasone 200 MCG/Formoterol 5 MCG 120 PUFF INHALER INH SCH ×2 (06:07→17:53)
--- NOTE | 2019-11-29 07:04 | PDOC.FM ---
- Subjective Subjective: Patient seen at bedside this morning, resting comfortably. She has been able to tolerate wean down of HFNC to rate 30L, FiO2 40%. - Objective Vital Signs & Weight: Vital Signs (12 hours) Temp Pulse Resp BP Pulse Ox 11/29/19 04:00 98.5 F 90 18 144/90 H 95 11/29/19 00:23 95 11/29/19 00:00 97.6 F 63 20 136/61 93 L 11/28/19 20:00 95 11/28/19 19:57 98.6 F 95 18 153/89 H 95 Weight Admit Weight 77.292 kg Weight 77.292 kg I&O: 11/28/19 11/29/19 11/30/19 06:59 06:59 06:59 Intake Total 850 1122 Output Total 1450 1250 Balance -600 -128 Result Diagrams: 11/29/19 05:13 11/29/19 05:13 Phys Exam - Physical Examination Constitutional: NAD HEENT: moist MMs, sclera anicteric Neck: no JVD, supple Respiratory: clear to auscultation bilateral Cardiovascular: RRR, no significant murmur Gastrointestinal: soft, no distention Musculoskeletal: pulses present 1+ edema in BLE Neurological: normal sensation, moves all 4 limbs Psychiatric: normal affect, A&O x 3 Skin: no rash Dx/Plan (1) COVID-19 virus detected Code(s): U07.1 - COVID-19 Status: Acute (2) Acute kidney injury superimposed on CKD Code(s): N17.9 - ACUTE KIDNEY FAILURE, UNSPECIFIED; N18.9 - CHRONIC KIDNEY DISEASE, UNSPECIFIED Status: Acute (3) COPD with exacerbation Code(s): J44.1 - CHRONIC OBSTRUCTIVE PULMONARY DISEASE W (ACUTE) EXACERBATION Status: Acute (4) HTN (hypertension) Code(s): I10 - ESSENTIAL (PRIMARY) HYPERTENSION Status: Chronic Qualifiers: Hypertension type: essential hypertension Qualified Code(s): I10 - Essential (primary) hypertension - Plan Plan: Patient is a 84 yo female who presents with respiratory distress is found to have COVID 19: #COVID-19 PNA -COV+ test on 11/12 (day 16 since test), day 19 of symptoms--Pulm wants to discontinue precautions after day 20 (would be 11/30/2019) -monitor inflammatory markers -DDimer 3.75 > 19.5 > greater than 20 > 12 -Ferritin 1495 > 1015 > 1005 > 807 > 892 > 932 > 852 > 1180 > 1537 > 1275 > 1119 -Procal 0.22 > 0.16 > 0.12 -CRP 7 > 1.12 > 0.5 -Dexamethasone stopped on 11/17 and transitioned to IV Methylprednisolone q6h per Pulm -continue Eliquis -Convalescent plasma - 1 unit on 11/12 -Remdesivir treatment x5d, completed on 11/16 -Azithromycin x 5d, completed on 11/16 -HFNC--has been requiring since 11/14, current FiO2 at 40% with rate 30L, continue to attempt to wean -will need to arrange for home O2 when able to come off HFNC -completed 7 day course of Doxycyline (11/19-11/26) -[place] Nasal [place] TID to assist with nose dryness and irritation likely from HFNC use #COPD exacerbation, mild -steroids -Rocephin 11/12-11/19 -Azithromycin 11/12-11/16 -Albuterol MDI #DIMA on CKD, hx of left nephrectomy - improved - Cr stable, monitor - renal dosing meds #HTN -Stable, continue home meds Losartan-HCTZ BID -likely somewhat elevated due to continued steroid use and fluids -started Amlodipine 11/24, continue to monitor Social: CM consulted for discharge planning. Patient previously had home health company after last admission but cannot remember who. Palliative consulted to assist with completion of MPOA. Spiritual consult for patient and family emotional support. Diet: HH VTE: Eliquis Code: full pcp: kristi Dispo: Admitted to inpatient on medical unit. Continue to monitor respiratory status. Anticipate discharge in >48 hours.
[2019-11-29] MEDS: Montelukast Sodium 10 mg Tablet PO SCH (09:18)
[2019-11-29] MEDS: Amlodipine 5 MG TAB PO SCH (09:19)
[2019-11-29] MEDS: Apixaban 2.5 MG TAB PO SCH ×2 (09:20→21:17)
[2019-11-29] MEDS: Sodium Chloride 0.65% Nasal 44 ML BOT EA NARE SCH ×3 (09:21→21:17)
--- NOTE | 2019-11-29 12:24 | PRG ---
DATE OF SERVICE: 11/29/2019 Ms. Miller is resting comfortably, in no distress. We have been weaning her down on her high-flow nasal cannula FiO2 of 40%. She can precautions for COVID in another day or 2. Clinically, she has recovered well and the slow process is likely related also to her COPD. Job ID: [id number]
[2019-11-29] MEDS: Acetaminophen 325 MG TAB PO PRN (21:17)
[2019-11-30] MEDS: methylPREDNISolone Sod Succ 40 MG VIAL IVP SCH ×4 (00:57→17:25)
[2019-11-30] MEDS: Albuterol 200 PUFF (6.7GM INHALER) INH SCH ×6 (00:57→20:18)
[2019-11-30] MEDS: Mometasone 200 MCG/Formoterol 5 MCG 120 PUFF INHALER INH SCH ×2 (06:13→19:05)
--- NOTE | 2019-11-30 06:22 | PDOC.FM ---
- Subjective Subjective: Patient denies headache, chest pain, SOB and abdominal pain. She is currently on HFNC to rate 30L, FiO2 40%. - Objective MAR Reviewed: Yes Vital Signs & Weight: Vital Signs (12 hours) Temp Pulse Resp BP Pulse Ox 11/30/19 01:00 98 F 89 18 153/98 H 96 11/29/19 20:00 98 11/29/19 19:05 98.3 F 92 20 134/87 98 Weight Admit Weight 77.292 kg Weight 77.292 kg I&O: 11/28/19 11/29/19 11/30/19 06:59 06:59 06:59 Intake Total 850 1122 500 Output Total 1450 1250 400 Balance -600 -128 100 Result Diagrams: 11/30/19 06:01 11/30/19 06:01 Phys Exam - Physical Examination Constitutional: NAD HEENT: moist MMs, sclera anicteric Neck: full ROM Respiratory: clear to auscultation bilateral Cardiovascular: RRR, no significant murmur Gastrointestinal: soft, positive bowel sounds Musculoskeletal: pulses present, edema present (1+ pitting edema up to ankles ) Neurological: moves all 4 limbs Psychiatric: normal affect, A&O x 3 Skin: no rash Dx/Plan - Plan Plan: Patient is a 84 yo female who presents with respiratory distress is found to have COVID 19: #COVID-19 PNA -COV+ test on 11/12 (day 17 since test), day 20 of symptoms--Discontinue precautions today per pulm -monitor inflammatory markers -DDimer 3.75 > 19.5 > greater than 20 > 12 -Ferritin 1495 > 1015 > 1005 > 807 > 892 > 932 > 852 > 1180 > 1537 > 1275 > 1119 -Procal 0.22 > 0.16 > 0.12 -CRP 7 > 1.12 > 0.5 -Dexamethasone stopped on 11/17 and transitioned to IV Methylprednisolone q6h per Pulm -continue Eliquis -Convalescent plasma - 1 unit on 11/12 -Remdesivir treatment x5d, completed on 11/16 -Azithromycin x 5d, completed on 11/16 -HFNC--has been requiring since 11/14, current FiO2 at 40% with rate 30L, continue to attempt to wean -Home O2 has been arranged when able to come off HFNC -Completed day course of Doxycyline (11/19-11/26) -[place] Nasal [place] TID to assist with nose dryness and irritation likely from HFNC use #COPD exacerbation, mild -steroids -Rocephin 11/12-11/19 -Azithromycin 11/12-11/16 -Albuterol MDI #DIMA on CKD, hx of left nephrectomy - improved - Cr stable, monitor - renal dosing meds #HTN -Stable, continue home meds Losartan-HCTZ BID -likely somewhat elevated due to continued steroid use and fluids -started Amlodipine 11/24, continue to monitor Social: CM consulted for discharge planning. Patient previously had home health company after last admission but cannot remember who. [facility] referrals sent. Palliative consulted to assist with completion of MPOA. Spiritual consult for patient and family emotional support. Diet: VTE: Eliquis Code: full pcp: kristi Dispo: Admitted to inpatient on medical unit. Continue to monitor respiratory status. Anticipate discharge in >48 hours. Addendum - Attending - Attending Attestation Date/Time: 11/30/19 4503 I personally evaluated the patient and discussed the management with Dr. Felton. I agree with the History, Examination, Assessment and Plan documented above with any addition or exceptions noted below. Patient stable. Continue HFNC and wean as tolerated. She has completed other therapies. She is now off precautions due to time course of her illness.
[2019-11-30 06:40] LABS: Band 13 % (5-11); Hemoglobin 14.5 g/dL (12.0-16.0); Lymphocytes 1 % (21-51); MDiff Complete? YES; Mean Corpuscular HGB CONC 32.2 g/dL (32.0-36.0); Mean Corpuscular Hemoglobin 29.9 pg (27.0-31.0); Mean Corpuscular Volume 92.6 fL (78.0-98.0); Mean Platelet Volume 9.7 fL (7.4-10.4); Monocytes 1 % (0-10); Neutrophil 85 % (42-75); Platelet Count 157 thou/uL (130-400); Platelet Morphology Comment Appears Adequate; Red Blood Cell (RBC) Count 4.85 mill/uL (4.20-5.40); White Blood Cell (WBC) Count 18.3 thou/uL (4.8-10.8)
[2019-11-30 06:46] LABS: ALT (SGPT) 20 U/L (8-55); AST (SGOT) 13 U/L (5-34); Alkaline Phosphatase 74 U/L (40-110); Anion Gap 14 mmol/L (10-20); BUN (Urea Nitrogen) 67 mg/dL (9.8-20.1); Bilirubin, Total 0.9 mg/dL (0.2-1.2); Calc. Creatinine Clearance 47 mL/min (70-130); Calcium 9.7 mg/dL (7.8-10.44); Carbon Dioxide 27 mmol/L (23-31); Chloride 103 mmol/L (98-107); Estimated GFR-MDRD 56; Globulin 2.2 g/dL (2.4-3.5); Glucose 153 mg/dL (83-110); Potassium 4.3 mmol/L (3.5-5.1); Protein, Total 5.2 g/dL (6.0-8.3); Sodium 140 mmol/L (136-145)
[2019-11-30] MEDS: Amlodipine 5 MG TAB PO SCH (11:21)
[2019-11-30] MEDS: Apixaban 2.5 MG TAB PO SCH ×2 (11:22→20:18)
[2019-11-30] MEDS: Montelukast Sodium 10 mg Tablet PO SCH (11:23)
[2019-11-30] MEDS: Sodium Chloride 0.65% Nasal 44 ML BOT EA NARE SCH ×3 (11:23→20:18)
[2019-11-30] MEDS: Bisacodyl 10 MG SUPP PR PRN (20:18)
[2019-11-30] MEDS: Bisacodyl 5 MG TAB PO PRN (21:45)
[2019-12-01] MEDS: Albuterol 200 PUFF (6.7GM INHALER) INH SCH ×6 (00:23→21:13)
[2019-12-01] MEDS: methylPREDNISolone Sod Succ 40 MG VIAL IVP SCH ×4 (00:23→17:57)
[2019-12-01] MEDS: Mometasone 200 MCG/Formoterol 5 MCG 120 PUFF INHALER INH SCH ×2 (05:45→19:39)
--- NOTE | 2019-12-01 05:50 | PDOC.FM ---
- Subjective Subjective: Patient reports rectal pain overnight. She denies melena, hematochezia and rectal itiching. Per nursing, last BM was 2 days ago. Suppository administered last pm. At that time, no blood, fissure, or skin irritation noted. Patient denies headache, chest pain, SOB and abdominal pain. Respiratory team in room to transition patient to [place]. - Objective MAR Reviewed: Yes Vital Signs & Weight: Vital Signs (12 hours) Temp Pulse Resp BP Pulse Ox 12/01/19 05:00 96 12/01/19 04:00 98.2 F 101 H 20 137/93 H 96 11/30/19 23:54 98.3 F 102 H 20 123/84 102 H 11/30/19 20:00 98.3 F 95 20 145/97 H 95 Weight Admit Weight 77.292 kg Weight 77.292 kg I&O: 11/29/19 11/30/19 12/01/19 06:59 06:59 06:59 Intake Total 1122 880 Output Total 1250 750 Balance -128 130 Result Diagrams: 12/01/19 06:20 12/01/19 06:20 Phys Exam - Physical Examination Constitutional: NAD On HFNC HEENT: moist MMs, sclera anicteric Neck: supple, full ROM Respiratory: no wheezing, clear to auscultation bilateral Cardiovascular: RRR, no significant murmur Gastrointestinal: soft, non-tender, positive bowel sounds Musculoskeletal: pulses present, edema present (Trace pitting edema) Neurological: non-focal, moves all 4 limbs Psychiatric: normal affect, A&O x 3 Skin: no rash Dx/Plan - Plan Plan: Patient is a 84 yo female who presents with respiratory distress is found to have COVID 19: #COVID-19 PNA -COV+ test on 11/12 (day 18 since test), day 21 of symptoms--Off precautions now -monitor inflammatory markers -DDimer 3.75 > 19.5 > greater than 20 > 12 -Ferritin 1495 > 1015 > 1005 > 807 > 892 > 932 > 852 > 1180 > 1537 > 1275 > 1119 > 947.5 -Procal 0.22 > 0.16 > 0.12 -CRP 7 > 1.12 > 0.5 -Dexamethasone stopped on 11/17 and transitioned to IV Methylprednisolone q6h per Pulm -continue Eliquis -Convalescent plasma - 1 unit on 11/12 -Remdesivir treatment x5d, completed on 11/16 -Azithromycin x 5d, completed on 11/16 -HFNC--has been requiring since 11/14, current FiO2 at 40% with rate 30L, attempting to wean to NC today -Completed 7 day course of Doxycyline (11/19-11/26) -[place] Nasal [place] TID to assist with nose dryness and irritation likely from HFNC use -Home O2 has been arranged when able to come off HFNC -Approvaed for [facility] upon discharge #COPD exacerbation, mild -steroids -Rocephin 11/12-11/19 -Azithromycin 11/12-11/16 -Albuterol MDI #DIMA on CKD, hx of left nephrectomy - resolved - Cr stable, monitor - renal dosing meds #HTN -Stable, continue home meds Losartan-HCTZ BID -likely somewhat elevated due to continued steroid use and fluids -started Amlodipine 11/24, continue to monitor #Constipation Patient has hx of constipation with going up to 1 week without BM. Last BM 2 days ago. Likely cause of rectal pain. -Suppository administered last pm -Monitor today Social: CM consulted for discharge planning. Patient previously had home health company after last admission but cannot remember who. Approved for [facility]. Palliative consulted to assist with completion of MPOA. Spiritual consult for patient and family emotional support. Diet: HH VTE: Eliquis Code: full pcp: kristi Dispo: Admitted to inpatient on medical unit. Continue to monitor respiratory status. Addendum - Attending - Attending Attestation Date/Time: 12/01/19 [id number] I personally evaluated the patient and discussed the management with Dr. Felton. I agree with the History, Examination, Assessment and Plan documented above with any addition or exceptions noted below. Patient overall stable. Continue to wean HFNC as tolerated. Hopefully can complete MPOA now that she is not on precautions. Continue usual post COVID care.
[2019-12-01 06:54] LABS: ALT (SGPT) 27 U/L (8-55); AST (SGOT) 14 U/L (5-34); Alkaline Phosphatase 73 U/L (40-110); Anion Gap 15 mmol/L (10-20); BUN (Urea Nitrogen) 66 mg/dL (9.8-20.1); Bilirubin, Total 1.1 mg/dL (0.2-1.2); Calc. Creatinine Clearance 50 mL/min (70-130); Calcium 9.6 mg/dL (7.8-10.44); Carbon Dioxide 27 mmol/L (23-31); Chloride 103 mmol/L (98-107); Estimated GFR-MDRD 61; Globulin 2.2 g/dL (2.4-3.5); Glucose 163 mg/dL (83-110); Potassium 4.1 mmol/L (3.5-5.1); Protein, Total 5.2 g/dL (6.0-8.3); Sodium 141 mmol/L (136-145)
[2019-12-01 06:59] LABS: Hemoglobin 14.7 g/dL (12.0-16.0); Lymphocytes 6 % (21-51); MDiff Complete? YES; Mean Corpuscular HGB CONC 31.9 g/dL (32.0-36.0); Mean Corpuscular Hemoglobin 29.9 pg (27.0-31.0); Mean Corpuscular Volume 93.6 fL (78.0-98.0); Mean Platelet Volume 9.3 fL (7.4-10.4); Monocytes 7 % (0-10); Neutrophil 87 % (42-75); Platelet Count 143 thou/uL (130-400); Platelet Morphology Comment Appears Adequate; RBC Morphology Normal; Red Blood Cell (RBC) Count 4.92 mill/uL (4.20-5.40)
[2019-12-01] MEDS: Amlodipine 5 MG TAB PO SCH (09:50)
[2019-12-01] MEDS: Sodium Chloride 0.65% Nasal 44 ML BOT EA NARE SCH ×3 (09:51→21:13)
[2019-12-01] MEDS: Montelukast Sodium 10 mg Tablet PO SCH (09:51)
[2019-12-01] MEDS: Apixaban 2.5 MG TAB PO SCH ×2 (09:51→21:13)
[2019-12-01] MEDS: Acetaminophen 325 MG TAB PO PRN (09:56)
[2019-12-02] MEDS: methylPREDNISolone Sod Succ 40 MG VIAL IVP SCH ×2 (00:48→05:56)
[2019-12-02] MEDS: Albuterol 200 PUFF (6.7GM INHALER) INH SCH ×6 (00:51→21:37)
[2019-12-02] MEDS: Mometasone 200 MCG/Formoterol 5 MCG 120 PUFF INHALER INH SCH ×2 (05:55→19:46)
[2019-12-02 06:20] LABS: ALT (SGPT) 24 U/L (8-55); AST (SGOT) 13 U/L (5-34); Albumin 2.8 g/dL (3.4-4.8); Alkaline Phosphatase 70 U/L (40-110); Anion Gap 15 mmol/L (10-20); BUN (Urea Nitrogen) 68 mg/dL (9.8-20.1); Calc. Creatinine Clearance 49 mL/min (70-130); Calcium 9.4 mg/dL (7.8-10.44); Carbon Dioxide 24 mmol/L (23-31); Chloride 103 mmol/L (98-107); Estimated GFR-MDRD 59; Globulin 2.2 g/dL (2.4-3.5); Glucose 180 mg/dL (83-110); Potassium 4.4 mmol/L (3.5-5.1); Sodium 138 mmol/L (136-145)
[2019-12-02 06:22] LABS: Hemoglobin 14.5 g/dL (12.0-16.0); Mean Corpuscular HGB CONC 32.6 g/dL (32.0-36.0); Mean Corpuscular Hemoglobin 30.3 pg (27.0-31.0); Mean Platelet Volume 10.1 fL (7.4-10.4); Platelet Count 130 thou/uL (130-400); Red Blood Cell (RBC) Count 4.79 mill/uL (4.20-5.40); White Blood Cell (WBC) Count 20.9 thou/uL (4.8-10.8)
[2019-12-02 06:28] LABS: Band 16 % (5-11); Lymphocytes 1 % (21-51); MDiff Complete? YES; Monocytes 2 % (0-10); Neutrophil 81 % (42-75); Platelet Morphology Comment Appears Adequate
--- NOTE | 2019-12-02 06:41 | PDOC.FM ---
- Subjective Subjective: No acute overnight events. Switched from HFNC to NC yesterday. Reports she is comfortable on NC, denies SOB. No new complaints this AM. States she is generally tired. No chest pain, abd pain, constipation. - Objective Vital Signs & Weight: Vital Signs (12 hours) Temp Pulse Resp BP Pulse Ox 12/02/19 04:00 98.0 F 98 20 132/87 20 L 12/02/19 03:21 96 12/02/19 00:00 97.8 F 100 20 128/84 90 L 12/01/19 20:00 98.5 F 99 20 137/96 H 96 Weight Admit Weight 77.292 kg Weight 77.292 kg I&O: 11/30/19 12/01/19 12/02/19 06:59 06:59 06:59 Intake Total 880 Output Total 750 Balance 130 Result Diagrams: 12/02/19 05:27 12/02/19 05:27 Phys Exam - Physical Examination Constitutional: NAD HEENT: moist MMs Respiratory: clear to auscultation bilateral CTAB anteriorly, on 4L NC, appears mildly SOB with conversation Cardiovascular: RRR, no significant murmur Gastrointestinal: soft, non-tender, no distention, positive bowel sounds Musculoskeletal: pulses present, edema present non-pitting pedal edema Neurological: non-focal Psychiatric: normal affect, A&O x 3 Skin: no rash Dx/Plan - Plan Plan: Patient is a 84 yo female who presents with respiratory distress is found to have COVID 19: #COVID-19 PNA -COV+ test on 11/12 (day 18 since test), day 21 of symptoms--Off precautions now -monitor inflammatory markers -DDimer 3.75 > 19.5 > greater than 20 > 12 -Ferritin 1495 > 1015 > 1005 > 807 > 892 > 932 > 852 > 1180 > 1537 > 1275 > 1119 > 947.5 -Procal 0.22 > 0.16 > 0.12 -CRP 7 > 1.12 > 0.5 -Dexamethasone stopped on 11/17 and transitioned to IV Methylprednisolone q6h per Pulm -12/01: stopped methylprednisolone, changed to PO prednisone and will start taper -continue Eliquis -Convalescent plasma - 1 unit on 11/12 -Remdesivir treatment x5d, completed on 11/16 -Azithromycin x 5d, completed on 11/16 -HFNC--has been requiring (11/14 - 11/30) -Switched to NC on 11/30, currently on 4L -Completed 7 day course of Doxycyline (11/19-11/26) -[place] Nasal [place] TID to assist with nose dryness and irritation likely from HFNC use -Home O2 has been arranged when able to come off HFNC -Approvaed for [facility] upon discharge Leukocytosis WBC increasing over past several days, now with some bandemia. No clinical signs of infection. Possibly due to steroid use over past several weeks. - continue to monitor for clinical signs of infection - continue to monitor CBC #COPD exacerbation, mild -steroids -Rocephin 11/12-11/19 -Azithromycin 11/12-11/16 -Albuterol MDI #DIMA on CKD, hx of left nephrectomy - resolved - Cr stable, monitor - renal dosing meds #HTN -Stable, continue home meds Losartan-HCTZ BID -likely somewhat elevated due to continued steroid use and fluids -started Amlodipine 11/24, continue to monitor #Constipation Patient has hx of constipation with going up to 1 week without BM. Last BM 2 days ago. Likely cause of rectal pain. -Suppository administered last pm -Monitor today Social: CM consulted for discharge planning. Patient previously had home health company after last admission but cannot remember who. Approved for [facility]. Palliative consulted to assist with completion of MPOA. Spiritual consult for patient and family emotional support. Diet: HH VTE: Eliquis Code: full pcp: kristi Dispo: Admitted to inpatient on medical unit. Continue to monitor respiratory status. Addendum - Attending - Attending Attestation Date/Time: 12/02/19 1107 I personally evaluated the patient and discussed the management with Dr. Beasley. I agree with the History, Examination, Assessment and Plan documented above with any addition or exceptions noted below.
[2019-12-02] MEDS: Amlodipine 5 MG TAB PO SCH (08:15)
[2019-12-02] MEDS: Apixaban 2.5 MG TAB PO SCH ×2 (08:15→21:36)
[2019-12-02] MEDS: Montelukast Sodium 10 mg Tablet PO SCH (08:15)
[2019-12-02] MEDS: Sodium Chloride 0.65% Nasal 44 ML BOT EA NARE SCH ×3 (08:18→21:37)
[2019-12-02] MEDS ORDERED: predniSONE 20 MG TAB PO SCH (08:46)
--- NOTE | 2019-12-02 11:01 | PRG ---
DATE OF SERVICE: SUBJECTIVE: #20 in the hospital. OBJECTIVE: VITAL SIGNS: She is now on nasal O2 4 L, sats blood pressure 135/91, respiratory rate 18. CHEST: No wheezing. No crackles. CARDIAC: Normal S1 and S2. No gallops. ABDOMEN: No masses. LABORATORY DATA: White count 20,000. Slight left shift. ASSESSMENT AND PLAN: Cede[place] positive pneumonia, respiratory failure, chronic obstructive pulmonary disease. P.o. prednisone. Hopefully, she can be discharged home. May consider doing a repeat serology prior to discharge. Job ID: [id number]
[2019-12-02] MEDS ORDERED: Fleet Enema 133 ML BOT PR SCH (11:15)
[2019-12-02] MEDS: predniSONE 20 MG TAB PO SCH (21:36)
[2019-12-03] MEDS: Albuterol 200 PUFF (6.7GM INHALER) INH SCH ×4 (03:31→21:38)
[2019-12-03] MEDS: Mometasone 200 MCG/Formoterol 5 MCG 120 PUFF INHALER INH SCH (05:26)
--- NOTE | 2019-12-03 06:27 | PDOC.FM ---
- Subjective Subjective: No acute overnight events. Patient continues to c/o feeling tired, denies feeling SOB. She is on 4L NC. She wants to go home. Denies malaise, denies dizziness, denies dysuria, denies abd pain. Was able to have BM yesterday afternoon. - Objective Vital Signs & Weight: Vital Signs (12 hours) Temp Pulse Resp BP Pulse Ox 12/03/19 03:00 96 12/03/19 00:00 98.3 F 99 20 109/69 96 12/02/19 20:01 98.0 F 103 H 20 114/80 97 Weight Admit Weight 77.292 kg Weight 77.292 kg I&O: 12/01/19 12/02/19 12/03/19 06:59 06:59 06:59 Intake Total 500 Balance 500 Result Diagrams: 12/03/19 05:34 12/03/19 05:34 Phys Exam - Physical Examination HEENT: moist MMs Respiratory: clear to auscultation bilateral SOB with conversation, breathing labored, clear anterior listening posts Cardiovascular: RRR, no significant murmur Gastrointestinal: soft, non-tender, no distention, positive bowel sounds Musculoskeletal: pulses present pedal edema non-pitting Dx/Plan - Plan Plan: Patient is a 84 yo female who presents with respiratory distress is found to have COVID 19: #COVID-19 PNA -COV+ test on 11/12 (day 18 since test), day 21 of symptoms--Off precautions now -monitor inflammatory markers -DDimer 3.75 > 19.5 > greater than 20 > 12 -Ferritin 1495 > 1015 > 1005 > 807 > 892 > 932 > 852 > 1180 > 1537 > 1275 > 1119 > 947.5 -Procal 0.22 > 0.16 > 0.12 -CRP 7 > 1.12 > 0.5 -Dexamethasone stopped on 11/17 and transitioned to IV Methylprednisolone q6h per Pulm -12/01: stopped methylprednisolone, changed to PO prednisone and will start taper -continue Eliquis -Convalescent plasma - 1 unit on 11/12 -Remdesivir treatment x5d, completed on 11/16 -Azithromycin x 5d, completed on 11/16 -HFNC--has been requiring (11/14 - 11/30) -Switched to NC on 11/30, currently on 4L -Completed 7 day course of Doxycyline (11/19-11/26) -[place] Nasal [place] TID to assist with nose dryness and irritation likely from HFNC use -Home O2 has been arranged when able to come off HFNC -Approvaed for [facility] upon discharge Leukocytosis WBC increasing over past several days, now with some bandemia. No clinical signs of infection. Possibly due to steroid use over past several weeks. - continue to monitor for clinical signs of infection - continue to monitor CBC - f/u UA, has not yet been collected #COPD exacerbation, mild -steroids -Rocephin 11/12-11/19 -Azithromycin 11/12-11/16 -Albuterol MDI #DIMA on CKD, hx of left nephrectomy - resolved - Cr stable, monitor - renal dosing meds #HTN -Stable, continue home meds Losartan-HCTZ BID -likely somewhat elevated due to continued steroid use and fluids -started Amlodipine 11/24, continue to monitor #Constipation Patient has hx of constipation with going up to 1 week without BM. Likely cause of rectal pain. - added scheduled miralax - BM after enema yesterday Social: CM consulted for discharge planning. Patient previously had home health company after last admission but cannot remember who. Approved for [facility]. Palliative consulted to assist with completion of MPOA. Spiritual consult for patient and family emotional support. Diet: HH VTE: Eliquis Code: full pcp: kristi Dispo: Possible DC to home with HH vs SNF Addendum - Attending - Attending Attestation Date/Time: 12/03/19 1107 I personally evaluated the patient and discussed the management with Dr. Beasley. I agree with the History, Examination, Assessment and Plan documented above with any addition or exceptions noted below. Patient overall stable. She is very resistant to go anywhere for therapy, and is adamant that she be sent home, though she has not shown an ability to get out of bed. Her family is concerned about her ability to be taken care of at home, but they are supportive of her wishes. We have voiced our concerns but patient refuses placement even in short term. We are treating some thrush today, and having her work with PT, but we are nearing the point of stability for discharge.
[2019-12-03 06:37] LABS: ALT (SGPT) 24 U/L (8-55); AST (SGOT) 13 U/L (5-34); Alkaline Phosphatase 74 U/L (40-110); Anion Gap 14 mmol/L (10-20); BUN (Urea Nitrogen) 75 mg/dL (9.8-20.1); Bilirubin, Total 1.1 mg/dL (0.2-1.2); Calc. Creatinine Clearance 48 mL/min (70-130); Calcium 9.5 mg/dL (7.8-10.44); Carbon Dioxide 26 mmol/L (23-31); Chloride 103 mmol/L (98-107); Estimated GFR-MDRD 57; Globulin 2.1 g/dL (2.4-3.5); Glucose 164 mg/dL (83-110); Potassium 4.1 mmol/L (3.5-5.1); Protein, Total 5.1 g/dL (6.0-8.3); Sodium 139 mmol/L (136-145)
[2019-12-03 07:11] LABS: Hemoglobin 14.8 g/dL (12.0-16.0); Mean Corpuscular HGB CONC 32.1 g/dL (32.0-36.0); Mean Corpuscular Hemoglobin 29.6 pg (27.0-31.0); Mean Corpuscular Volume 92.2 fL (78.0-98.0); Mean Platelet Volume 10.2 fL (7.4-10.4); Platelet Count 116 thou/uL (130-400); White Blood Cell (WBC) Count 21.2 thou/uL (4.8-10.8)
[2019-12-03 08:48] LABS: Band 1 % (5-11); Burr Cells SLIGHT = 2-5 cells (100X) (0-1/hpf); Lymphocytes 3 % (21-51); MDiff Complete? YES; Monocytes 2 % (0-10); Neutrophil 94 % (42-75); Platelet Morphology Comment Appears Decreased
[2019-12-03] MEDS: Montelukast Sodium 10 mg Tablet PO SCH (08:56)
[2019-12-03] MEDS: predniSONE 20 MG TAB PO SCH (08:56)
[2019-12-03] MEDS: Amlodipine 5 MG TAB PO SCH (08:56)
[2019-12-03] MEDS: Apixaban 2.5 MG TAB PO SCH ×2 (08:56→21:35)
[2019-12-03] MEDS: Polyethylene Glycol 3350 17 GM Packet PO SCH (09:00)
[2019-12-03] MEDS: Sodium Chloride 0.65% Nasal 44 ML BOT EA NARE SCH ×3 (09:00→21:38)
--- NOTE | 2019-12-03 10:24 | PRG ---
DATE OF SERVICE: 12/03/2019 SUBJECTIVE: This morning, she is awake and responsive. She had difficulty swallowing. OBJECTIVE: VITAL SIGNS: Temperature 98, pulse 102, blood pressure 97/69, sats are 90% on 4 L. CHEST: No wheezing. No crackles. CARDIAC: Normal S1, S2. No gallops. ABDOMEN: Soft. Tongue is coated with white patches of the entire tongue. White count 21,000. Creatinine 1.1, BUN 75 prerenal. ASSESSMENT: 1. Cede[place] positive pneumonia, COPD, respiratory failure. 2. Thrush. 3. Dysphagia. PLAN: I am cutting back on steroids to just 20 a day, discontinuing the Symbicort. She has extensive thrush, ten-day course of Diflucan. She may need an appetite improvement medication if she is not better in the next day or two. Job ID: [id number]
--- NOTE | 2019-12-03 10:41 | RAD ---
PORTABLE CHEST 1 VIEW: Date: 12/03/2019 Time: 1008 hours HISTORY: Pneumonia. COMPARISON: 11/22/2019. FINDINGS/IMPRESSION: The heart size is stable. The aorta is tortuous. There is continued elevation of the right hemidiaphr agm. There are patchy opacities in the lower lung noel bilaterally and the left mid lung. No pneumo thoraces or large effusions are seen. Findings are suspicious for pneumonia. POS: OFF
[2019-12-03 12:22] LABS: Bacteria/HPF None Seen HPF (None Seen); Bilirubin Negative (Negative); Blood, Urine Negative (Negative); Clarity Turbid (Clear); Glucose, Urine (Dipstick) Normal (Negative); Ketone, Urine Negative (Negative); Leukocyte Negative Leu/uL (Negative); Nitrite Negative (Negative); Protein, Urine (Dipstick) 10 mg/dL (Neg-Trace); RBC/HPF 0-3 HPF (0-3); Specific Gravity, Urine 1.026 (1.002-1.036); Squamous Epithelial 0-3 HPF (0-3); Urobilinogen Normal mg/dL (Less than 2)
[2019-12-03 12:26] LABS: Urine Culture Reflex Yes Yes
[2019-12-03] MEDS: Aluminum & Magnesium Hydroxide 60 ML, diphenhydrAMINE 150 MG, Lidocaine 2% Viscous Solu... SSW SCH ×3 (13:43→21:39)
[2019-12-04] MEDS: Albuterol 200 PUFF (6.7GM INHALER) INH SCH ×6 (01:58→21:09)
[2019-12-04] MEDS: Acetaminophen 325 MG TAB PO PRN (05:14)
[2019-12-04 05:50] LABS: Band 16 % (5-11); Eosinophils 1 % (0-10); Lymphocytes 9 % (21-51); MDiff Complete? YES; Mean Corpuscular HGB CONC 32.5 g/dL (32.0-36.0); Mean Corpuscular Volume 92.1 fL (78.0-98.0); Mean Platelet Volume 11.1 fL (7.4-10.4); Monocytes 2 % (0-10); Neutrophil 72 % (42-75); Platelet Count 83 thou/uL (130-400); Platelet Morphology Comment Appears Decreased; Red Blood Cell (RBC) Count 4.68 mill/uL (4.20-5.40); White Blood Cell (WBC) Count 16.3 thou/uL (4.8-10.8)
[2019-12-04 05:53] LABS: ALT (SGPT) 21 U/L (8-55); AST (SGOT) 13 U/L (5-34); Albumin 2.8 g/dL (3.4-4.8); Alkaline Phosphatase 68 U/L (40-110); Anion Gap 15 mmol/L (10-20); BUN (Urea Nitrogen) 86 mg/dL (9.8-20.1); Calc. Creatinine Clearance 43 mL/min (70-130); Calcium 9.4 mg/dL (7.8-10.44); Carbon Dioxide 26 mmol/L (23-31); Chloride 103 mmol/L (98-107); Estimated GFR-MDRD 50; Glucose 137 mg/dL (83-110); Potassium 3.7 mmol/L (3.5-5.1); Protein, Total 4.8 g/dL (6.0-8.3); Sodium 140 mmol/L (136-145)
--- NOTE | 2019-12-04 06:57 | PDOC.FM ---
- Subjective Subjective: Decreased from 4L NC to 2L NC overnight. Saturations 93-95% overnight, desaturating to mid-80s this AM. Patient endorsing feeling more SOB, like she cannot catch her breath. She denies fever, chills, cough. She states that she does not want to keep going through this, she wants to go home to [facility]blem. - Objective Vital Signs & Weight: Vital Signs (12 hours) Temp Pulse Resp BP BP Pulse Ox 12/04/19 04:06 95 12/04/19 04:00 97.4 F L 96 20 95/59 L 93 L 12/04/19 00:00 97.5 F L 100 18 93/63 95 12/03/19 21:45 107/64 12/03/19 20:00 98.0 F 98 18 90/61 96 Weight Admit Weight 77.292 kg Weight 77.292 kg I&O: 12/02/19 12/03/19 12/04/19 06:59 06:59 06:59 Intake Total 500 720 Balance 500 720 Result Diagrams: 12/04/19 05:12 12/04/19 05:12 Radiology Reviewed by me: Yes (CXR reviewed, opacity in RLL appears somewhat improved from yesterday) Phys Exam - Physical Examination moderate respiratory distress extensive white thrush discharge in mouth coarse breath sounds bilaterally, some respiratory distress Cardiovascular: no significant murmur regular rhythm, mild tachycardia Gastrointestinal: soft, non-tender, no distention Musculoskeletal: pulses present bilateral non-pitting pedal edema; deconditioning, unable to sit w/o assist Neurological: non-focal Psychiatric: A&O x 3 Skin: no rash Dx/Plan - Plan Plan: Patient is a 84 yo female who presents with respiratory distress is found to have COVID 19: #COVID-19 PNA -COV+ test on 11/12 (day 18 since test), day 21 of symptoms--Off precautions now -monitor inflammatory markers -DDimer 3.75 > 19.5 > greater than 20 > 12 -Ferritin 1495 > 1015 > 1005 > 807 > 892 > 932 > 852 > 1180 > 1537 > 1275 > 1119 > 947.5 -Procal 0.22 > 0.16 > 0.12 -CRP 7 > 1.12 > 0.5 -Dexamethasone stopped on 11/17 and transitioned to IV Methylprednisolone q6h per Pulm -12/01: stopped methylprednisolone, changed to PO prednisone and will start taper -continue Eliquis -Convalescent plasma - 1 unit on 11/12 -Remdesivir treatment x5d, completed on 11/16 -Azithromycin x 5d, completed on 11/16 -HFNC--has been requiring (11/14 - 11/30) -Completed 7 day course of Doxycyline (11/19-11/26) -[place] Nasal [place] TID to assist with nose dryness and irritation likely from HFNC use -Home O2 has been arranged when able to come off HFNC -[facility]vaed for [facility] upon discharge -Switched to 4L NC on 11/30, weaned to 2L overnight on 12/02 -12/03: Noted to have desaturation to mid-80s and placed on HFNC - currently 35L, 50% FiO2 Hospital acquired pneumonia Discussed worsening condition with Dr. Leija on 12/03. Patient placed back on HFNC as above. - omnicef x [address] Leija - appreciate pulmonary recs Oral thrush Noted on re-examination yesterday. Likely contributing factor to poor appetite. - Nystatin/magic mouthwash - Diflucan per pulm Poor appetite Likely due to oral discomfort from thrush, treat as above. Discussed appetite stimulant with family. - consider addition of appetite stimulant if symptoms not improving with treatment of thrush Leukocytosis Beginning to down trend. Likely due to steroid use. No obvious infection on UA although reflexed to culture. Thrush may also be contributing factor. - continue to monitor for clinical signs of infection - continue to monitor CBC - f/u urine cx #COPD exacerbation, mild -steroids -Rocephin 11/12-11/19 -Azithromycin 11/12-11/16 -Albuterol MDI #DIMA on CKD, hx of left nephrectomy - resolved - Cr stable, monitor - renal dosing meds #HTN -Stable, continue home meds Losartan-HCTZ BID -likely somewhat elevated due to continued steroid use and fluids -started Amlodipine 11/24, now with borderline BP as steroids tapered, discontinued on 12/03 #Constipation Patient has hx of constipation with going up to 1 week without BM. Likely cause of rectal pain. - added scheduled miralax Goals of care: Patient stating she is ready to . Contacted palliative care to help facilitate discussion about goals of care. Social: CM consulted for discharge planning. Patient previously had home health company after last admission but cannot remember who. Approved for [facility]. Palliative consulted to assist with completion of MPOA. Spiritual consult for patient and family emotional support. Diet: HH VTE: Eliquis Code: full pcp: kristi Dispo: Possible DC to home with HH vs SNF, consider palliative care or hospice pending goals of care discussion Addendum - Attending - Attending Attestation Date/Time: 12/04/19 9055 I personally evaluated the patient and discussed the management with Dr. Beasley. I agree with the History, Examination, Assessment and Plan documented above with any addition or exceptions noted below. Patient with some worsening this morning, had to be placed back on HFNC. ABG obtained, reveals some mild hypoxemia. She is having some increased shortness of breath. Pulm has been notified. Family updated. CXR appears overall stable from previous. Suspect mild worsening in her acute lung dysfunction associated with a severe COVID infection. Palliative care on board. We will continues discussions with family and patient relating to her need for more chcf care than going straight home whenever she is stable to do so.
[2019-12-04] MEDS: Polyethylene Glycol 3350 17 GM Packet PO SCH ×2 (07:49→08:39)
[2019-12-04] MEDS: Fluconazole 100 MG TAB PO SCH (08:39)
[2019-12-04] MEDS: Apixaban 2.5 MG TAB PO SCH ×2 (08:40→21:47)
[2019-12-04] MEDS: Montelukast Sodium 10 mg Tablet PO SCH (08:40)
[2019-12-04] MEDS: predniSONE 20 MG TAB PO SCH (08:40)
[2019-12-04] MEDS: Amlodipine 5 MG TAB PO SCH (08:41)
--- NOTE | 2019-12-04 09:07 | RAD ---
Chest one view HISTORY: Dyspnea. COMPARISON: 12/03/2019. FINDINGS: Cardiac silhouette is shifted leftward with the patient. Pulmonary vasculature remains uppe r limits of normal. Ill-defined patchy areas of predominantly peripheral groundglass infiltrate involving each lower lobe are similar in appearance to the prior study. Mediastinum is midline with aortic calcification. No evidence of pneumothorax. IMPRESSION : Multifocal infiltrate and other findings are stable.
[2019-12-04] MEDS: Aluminum & Magnesium Hydroxide 60 ML, diphenhydrAMINE 150 MG, Lidocaine 2% Viscous Solu... SSW SCH ×4 (10:16→21:09)
[2019-12-04] MEDS: Sodium Chloride 0.65% Nasal 44 ML BOT EA NARE SCH ×3 (10:17→21:09)
[2019-12-04] MEDS ORDERED: Cefdinir 300 MG CAP PO SCH (10:30)
--- NOTE | 2019-12-04 10:41 | PRG ---
DATE OF SERVICE: 12/04/2019 SUBJECTIVE: An 84-year-old female. This morning, she is still complaining of being short of breath. OBJECTIVE: VITAL SIGNS: Temperature 97, pulse 76, respiratory rate 20, sats are 92% on high-flow back again. X-ray shows bilateral infiltrates, somewhat worse with a blood pressure of 99/59. CHEST: Rhonchi, crackles. CARDIAC: Normal S1, S2. No gallops. ABDOMEN: No masses. LABORATORY DATA: Creatinine 1.25, BUN 86. White count is still elevated at 16,000. ASSESSMENT AND PLAN: 1. Extensive thrush. 2. Cedeño positive pneumonia. 3. Chronic obstructive pulmonary disease. 4. Probably hospital-acquired pneumonia. Empiric Omnicef is being initiated. Otherwise, continue supportive care, PT. Job ID: [id number]
--- NOTE | 2019-12-04 14:28 | PDOC.FMACP ---
Advance Care Planning - Problem (1) Palliative care encounter Status: Acute Code(s): Z51.5 - ENCOUNTER FOR PALLIATIVE CARE (2) Acute kidney injury superimposed on CKD Status: Acute Code(s): N17.9 - ACUTE KIDNEY FAILURE, UNSPECIFIED; N18.9 - CHRONIC KIDNEY DISEASE, UNSPECIFIED (3) COPD with exacerbation Status: Acute Code(s): J44.1 - CHRONIC OBSTRUCTIVE PULMONARY DISEASE W (ACUTE) EXACERBATION (4) New onset of congestive heart failure Status: Acute Code(s): I50.9 - HEART FAILURE, UNSPECIFIED (5) HTN (hypertension) Status: Chronic Code(s): I10 - ESSENTIAL (PRIMARY) HYPERTENSION Qualifiers: Hypertension type: essential hypertension Qualified Code(s): I10 - Essential (primary) hypertension (6) Hx of malignant neoplasm of colon Status: Chronic Code(s): Z85.038 - PERSONAL HISTORY OF MALIGNANT NEOPLASM OF LARGE INTESTINE - Note Participants: patient, family, surrogate decision-maker, palliative care Summary: Palliative care introduced Advanced Care Planning. The diagnosis, prognosis and goals of care were discussed. Appropriate forms and documentation to accomplish the goals of care were discussed. All questions were answered. MPOA completed, original and copy given to the patient as well as copy placed on the chart for medical records. [facility] home [facility]/hospice when ready to discharge. Family discussing plan. Please also refer to Palliative Care noted in note section. Time Spent (mins): 15
[2019-12-04] MEDS: Cefdinir 300 MG CAP PO SCH (21:09)
[2019-12-05] MEDS: Albuterol 200 PUFF (6.7GM INHALER) INH SCH ×5 (02:51→18:33)
[2019-12-05 06:38] LABS: #Eosinphils 0.1 thou/uL (0.0-0.7); #Lymphocytes 0.6 thou/uL (1.20-3.40); #Monocytes 0.1 thou/uL (0.11-0.59); #Neutrophils 10.4 thou/uL (1.40-6.50); %Eosinophils 0.6 % (0.0-10.0); %Lymphocytes 5.7 % (21.0-51.0); %Monocytes 1.1 % (0.0-10.0); %Neutrophils 92.5 % (42.0-75.0); Hemoglobin 12.8 g/dL (12.0-16.0); Mean Corpuscular HGB CONC 31.5 g/dL (32.0-36.0); Mean Corpuscular Hemoglobin 29.2 pg (27.0-31.0); Mean Corpuscular Volume 92.7 fL (78.0-98.0); Mean Platelet Volume 11.7 fL (7.4-10.4); Platelet Count 59 thou/uL (130-400); RBC Distribution Width 13.2 % (11.5-14.5); Red Blood Cell (RBC) Count 4.38 mill/uL (4.20-5.40); White Blood Cell (WBC) Count 11.2 thou/uL (4.8-10.8)
[2019-12-05 06:55] LABS: ALT (SGPT) 22 U/L (8-55); AST (SGOT) 14 U/L (5-34); Albumin 2.6 g/dL (3.4-4.8); Alkaline Phosphatase 61 U/L (40-110); Anion Gap 14 mmol/L (10-20); BUN (Urea Nitrogen) 91 mg/dL (9.8-20.1); Bilirubin, Total 0.8 mg/dL (0.2-1.2); Calc. Creatinine Clearance 47 mL/min (70-130); Calcium 8.9 mg/dL (7.8-10.44); Carbon Dioxide 25 mmol/L (23-31); Chloride 104 mmol/L (98-107); Estimated GFR-MDRD 56; Globulin 1.8 g/dL (2.4-3.5); Glucose 102 mg/dL (83-110); Potassium 3.6 mmol/L (3.5-5.1); Protein, Total 4.4 g/dL (6.0-8.3); Sodium 139 mmol/L (136-145)
[2019-12-05] MEDS: Fluconazole 100 MG TAB PO SCH (08:45)
[2019-12-05] MEDS: Cefdinir 300 MG CAP PO SCH (08:45)
[2019-12-05] MEDS: predniSONE 20 MG TAB PO SCH (08:45)
[2019-12-05] MEDS: Apixaban 2.5 MG TAB PO SCH (08:47)
[2019-12-05] MEDS: Montelukast Sodium 10 mg Tablet PO SCH (08:53)
[2019-12-05] MEDS: Sodium Chloride 0.65% Nasal 44 ML BOT EA NARE SCH ×2 (08:54→15:03)
[2019-12-05] MEDS: Aluminum & Magnesium Hydroxide 60 ML, diphenhydrAMINE 150 MG, Lidocaine 2% Viscous Solu... SSW SCH ×3 (08:54→18:33)
--- NOTE | 2019-12-05 09:03 | PDOC.FM ---
- Subjective Subjective: HFNC increased overnight. Patient wishes to remain full code on hospice. No new complaints this AM. Denies CP. She is breathing more comfortably and conversing more comfortably on the HFNC. Her thrush symptoms are improving. She is still feeling generally weak. - Objective Vital Signs & Weight: Vital Signs (12 hours) Pulse Resp Pulse Ox 12/05/19 04:00 90 20 97 12/04/19 23:45 90 20 98 Weight Admit Weight 77.292 kg Weight 77.292 kg I&O: 12/04/19 12/05/19 12/06/19 06:59 06:59 06:59 Intake Total 720 880 Balance 720 880 Result Diagrams: 12/05/19 05:28 12/05/19 05:45 Phys Exam - Physical Examination Constitutional: NAD (resting comfortably on HFNC) appears fatigued, chronically ill HEENT: moist MMs moist MM, persistent thrush is improving coarse breath sounds bilaterally Cardiovascular: no significant murmur mildly tachycardic Gastrointestinal: soft, non-tender Musculoskeletal: pulses present bilateral 1+ pitting edema Neurological: non-focal Psychiatric: A&O x 3 Skin: no rash Dx/Plan - Plan Plan: Patient is a 84 yo female who presents with respiratory distress is found to have COVID 19: Respiratory Failure Has now been requiring oxygen for several weeks. Changed from HFNC to NC earlier this week, now requiring HFNC again as below. Per patient request, transitioning to hospice. - will stop eliquis, anti-hypertensives on hospice - continue HFNC for comfort - likely DC to home hospice on HFNC #COVID-19 PNA -COV+ test on 11/12 (day 18 since test), day 21 of symptoms--Off precautions now -monitor inflammatory markers -DDimer 3.75 > 19.5 > greater than 20 > 12 -Ferritin 1495 > 1015 > 1005 > 807 > 892 > 932 > 852 > 1180 > 1537 > 1275 > 1119 > 947.5 -Procal 0.22 > 0.16 > 0.12 -CRP 7 > 1.12 > 0.5 -Dexamethasone stopped on 11/17 and transitioned to IV Methylprednisolone q6h per Pulm -12/01: stopped methylprednisolone, changed to PO prednisone and will start taper -continue Eliquis -Convalescent plasma - 1 unit on 11/12 -Remdesivir treatment x5d, completed on 11/16 -Azithromycin x 5d, completed on 11/16 -HFNC--has been requiring (11/14 - 11/30) -Completed 7 day course of Doxycyline (11/19-11/26) -[place] Nasal [place] TID to assist with nose dryness and irritation likely from HFNC use -Home O2 has been arranged when able to come off HFNC -Approvaed for [facility] upon discharge -Switched to 4L NC on 11/30, weaned to 2L overnight on 12/02 -12/03: Noted to have desaturation to mid-80s and placed on HFNC, with continued increasing O2 requirements Hospital acquired pneumonia Discussed worsening condition with Dr. Leija on 12/03. Patient placed back on HFNC as above. - omnicef x [address] Leija - appreciate pulmonary recs Oral thrush Improved from examination yesterday. Likely contributing factor to poor appetite. - Nystatin/magic mouthwash - Diflucan per pulm - Will continue treatment on hospice given unbearable symptoms. Poor appetite Likely due to oral discomfort from thrush, treat as above. Discussed appetite stimulant with family. - consider addition of appetite stimulant if symptoms not improving with treatment of thrush Leukocytosis Beginning to down trend. Likely due to steroid use. No obvious infection on UA although reflexed to culture. Thrush may also be contributing factor. - continue to monitor for clinical signs of infection - continue to monitor CBC - f/u urine cx #COPD exacerbation, mild -steroids -Rocephin 11/12-11/19 -Azithromycin 11/12-11/16 -Albuterol MDI #DIMA on CKD, hx of left nephrectomy - resolved - Cr stable, monitor - renal dosing meds #HTN -discontinued losartan- HCTZ -started Amlodipine 11/24, now with borderline BP as steroids tapered, discontinued on 12/03 #Constipation Patient has hx of constipation with going up to 1 week without BM. Likely cause of rectal pain. - added scheduled miralax Goals of care: Palliative care following. Patient wishes to remain full code. Plan to DC with hospice to home. Diet: HH Code: full pcp: kristi Dispo: DC to home with hospice [facility] when HFNC available, likely later today Addendum - Attending - Attending Attestation Date/Time: 12/05/19 1125 I personally evaluated the patient and discussed the management with Dr. Beasley. I agree with the History, Examination, Assessment and Plan documented above with any addition or exceptions noted below.
--- NOTE | 2019-12-05 10:56 | PRG ---
DATE OF SERVICE: SUBJECTIVE: An 84-year-old female. This morning, she is somewhat better. OBJECTIVE: VITAL SIGNS: Sats are 97% on high flow, 60% FiO2, temperature 98. GENERAL: Tongue looks much improved. The thrush is better. CHEST: Decreased breath sounds. No wheezing. CARDIAC: Normal S1, S2. ABDOMEN: No masses. LABORATORY DATA: Lab is better, is still azotemic, prerenal most of it. ASSESSMENT: Cedeño positive pneumonia, respiratory failure, chronic obstructive pulmonary disease, and azotemia. PLAN: Encouraged p.o. fluid intake. Hopefully can downsize the O2 back to nasal and can be discharged at later time. We will follow. Job ID: [id number]
[2019-12-05] MEDS ORDERED: Lorazepam 2 MG/ML VIAL SLOW IVP PRN (15:50)
[2019-12-05 19:32] VITALS: BP 96/64; TEMP 97.2
--- NOTE | 2019-12-06 14:02 | DIS ---
DATE OF ADMISSION: 11/12/2019 DATE OF DISCHARGE: 12/05/2019 RESIDENT: Danay Beasley DO ADMITTING ATTENDING: Dr. Price. DISCHARGE ATTENDING: Dr. Fuller. CONSULT: Pulmonology. PROCEDURES: CTA of chest and thorax negative for pulmonary embolism. PRIMARY DIAGNOSIS: COVID-19 pneumonia. SECONDARY DIAGNOSES: Respiratory failure secondary to COVID pneumonia, oral thrush, malnutrition, chronic obstructive pulmonary disease with exacerbation, acute kidney injury with chronic kidney disease, hypotension. DISCHARGE MEDICATIONS: 1. Singulair 10 mg p.o. daily. 2. Tessalon Perles 100 mg p.o. t.i.d. p.r.n. 3. DuoNeb 3 mL nebulizer q.4 hours as needed. 4. Budesonide/formoterol fumarate two puffs inhaled b.i.d. 5. Nystatin magic mouthwash swish and swallow four times a day for 7 days. 6. Dulcolax 10 mg q.8 hours p.r.n. 7. MiraLAX 17 g p.o. daily. 8. [place] nasal spray 1 mL each nares t.i.d. p.r.n. 9. Omnicef 300 mg p.o. b.i.d. for 6 days. 10. Tylenol 650 mg p.o. q.4 hours p.r.n. 11. Tylenol suppository 650 mg p.r. q.4 hours p.r.n. 12. Prednisone 20 mg p.o. q.a.m. with meals for 7 days. DISCONTINUED MEDICATIONS: 1. Losartan/hydrochlorothiazide 50/12.5 one p.o. b.i.d. 2. Ciprofloxacin 500 mg p.o. b.i.d. 3. Dulcolax 5 mg p.o. daily p.r.n. 4. Prednisone 20 mg p.o. b.i.d. HOSPITAL COURSE: This is an 84-year-old female with past medical history of COPD and hypertension, who presented for worsening cough and shortness of breath after treatment for COPD exacerbation in the outpatient setting and was found to have COVID pneumonia. Upon admission, she had an elevated D-dimer, and treatment with heparin was initiated due to concern for PE, although CTA was not obtained at that time due to concern about her renal function. Subsequently, CTA was performed, and heparin was stopped. Eliquis was started as D-dimer continued to trend upwards in the setting of COVID pneumonia. She was also found to have elevated ferritin and CRP, although procalcitonin remained low in the setting of this viral infection. She received convalescent plasma, remdesivir, azithromycin, and dexamethasone as treatment for COVID. She also received Rocephin from 11/12 to 11/19 and doxycycline from 11/19 to 11/26 during this admission for COPD exacerbation. She was not hypoxic on admission, but began to require supplemental oxygen on the 2nd hospital day, and by her 4th day in the hospital, she was requiring high-flow nasal cannula. Pulmonology was consulted due to her worsening respiratory status. After 5 days of dexamethasone, she was switched to IV methylprednisolone, which she continued for quite some time. She became hypertensive, suspected to be due to prolonged steroid use and IV fluid. Amlodipine was started in addition to her antihypertensive home medications. Isolation precautions were stopped on 11/29 when she reached 20 days from the onset of illness. She remained on high-flow nasal cannula from 11/14 until 11/30, when she was able to be weaned to 4 L nasal cannula. On 12/01, IV methylprednisolone was stopped, and she was started on oral taper of prednisone. On 12/02, the patient developed significant thrush, and she was started on Diflucan as well as nystatin magic mouthwash swish and swallow. Her oxygen had remained stable, and on the evening of 12/02, she was weaned from 4 L to 2 L nasal cannula. On the morning of 12/03, she was found to have desaturated to the mid 80s, and oxygenation was not responsive to increasing the rate of the nasal cannula. She was placed back onto high-flow nasal cannula and started on p.o. Omnicef by Pulmonology. On 12/03, the patient expressed that she did not want to remain hospitalized and that she wanted to pursue hospice care at home. Hospice evaluation was performed by Case Management and Palliative Care. The patient and family questions were answered. On 12/04, the patient was discharged to home with hospice. Medications and therapies for symptomatic relief were continued including high-flow nasal cannula. DISPOSITION: Guarded on hospice. DISCHARGE INSTRUCTIONS: 1. Location: Home with hospice. 2. Diet: Regular diet. 3. Activity: As tolerated. 4. Follow up with your PCP or your hospice physician as needed. Job ID: [id number]
== END 2019-12-05 19:03 | disposition hospice, home (50) | DRG 177 ==
LOC: ERS 19:31 → T4-A 21:58
PROVIDERS: ADMIT Emergency Medicine; ATTEND Emergency Medicine
PROC: 8E0ZXY6 Isolation (ICD-10-PCS; 2019-11-12)
PROC: XW033E5 Introduction of Remdesivir Anti-infective into Peripheral Vein, Percutaneous Approach, New Technology Group 5 (ICD-10-PCS; principal; 2019-11-13)
PROC: XW13325 Transfusion of Convalescent Plasma (Nonautologous) into Peripheral Vein, Percutaneous Approach, New Technology Group 5 (ICD-10-PCS; 2019-11-13)
DX: U07.1 COVID-19 (principal); J12.89 Other viral pneumonia; J80 Acute respiratory distress syndrome; J18.9 Pneumonia, unspecified organism; J44.1 Chronic obstructive pulmonary disease with (acute) exacerbation; N17.9 Acute kidney failure, unspecified; B37.0 Candidal stomatitis; Z51.5 Encounter for palliative care; I12.9 Hypertensive chronic kidney disease with stage 1 through stage 4 chronic kidney disease, or unspecified chronic kidney disease; N18.9 Chronic kidney disease, unspecified; Z77.29 Contact with and (suspected) exposure to other hazardous substances; Z96.651 Presence of right artificial knee joint; Z88.8 Allergy status to other drugs, medicaments and biological substances; Z79.51 Long term (current) use of inhaled steroids; Z79.52 Long term (current) use of systemic steroids; Z79.899 Other long term (current) drug therapy; Z90.49 Acquired absence of other specified parts of digestive tract; Z90.710 Acquired absence of both cervix and uterus; Z85.038 Personal history of other malignant neoplasm of large intestine; D72.829 Elevated white blood cell count, unspecified; T38.0X5A Adverse effect of glucocorticoids and synthetic analogues, initial encounter; K59.00 Constipation, unspecified
CPT/HCPCS: 36415; 36430; 36600; 71045; 71046; 71275; 80053; 81001; 82728; 82805; 83615; 83880; 84145; 84484; 85025; 85379; 85652; 85730; 86140; 86850; 86870; 86900; 86901; 86922; 87086; 93005; 93010; 94664; J0696; J1100; J1644; J2060; J2920; J3490; J7050; J7512; P9017; Q0163; Q9967; U0002